=== PATIENT | male | born 1930 | race Caucasian/White ===

== ENCOUNTER → 2017-03-30 | Outpatient (REF) | payer MEDICARE ==
[2017-03-30 17:02] LABS: ALBUMIN 3.5 GM/DL (3.2-5.2); ALBUMIN/GLOBULIN RATIO 1.09 (1.00-1.93); BILIRUBIN,TOTAL 0.7 MG/DL (0.2-1.0); CALCIUM LEVEL 7.9 MG/DL (8.8-10.2); CREATININE FOR GFR 1.39 MG/DL (0.70-1.30); GLOMERULAR FILTRATION RATE 51.7 (>35); POTASSIUM SERUM 4.1 MEQ/L (3.5-5.1); TOTAL PROTEIN 6.7 GM/DL (6.4-8.2)
[2017-03-30 18:13] LABS: MEAN CORPUSCULAR HEMOGLOBIN 30.7 pg (27.0-33.0); MEAN CORPUSCULAR HGB CONC 33.3 g/dl (32.0-36.5); MEAN CORPUSCULAR VOLUME 92.1 fl (80.0-96.0); RED CELL DISTRIBUTION WIDTH 14.8 % (11.5-14.5)
== END ==
LOC: M SFHCCAPE 09:03
PROVIDERS: ATTEND Family Medicine
DX: N18.2 Chronic kidney disease, stage 2 (mild) (principal); E11.9 Type 2 diabetes mellitus without complications; E78.2 Mixed hyperlipidemia

== ENCOUNTER → 2018-01-04 | Outpatient (REF) | payer MEDICARE ==
[2018-01-04 18:59] LABS: APPEARANCE, URINE CLEAR (CLEAR); BACTERIA, URINE AUTO NEGATIVE (NEGATIVE); BILIRUBIN, URINE AUTO NEGATIVE (NEGATIVE); BLOOD, URINE BLOOD 1+ (NEGATIVE); COLOR, URINE YELLOW (YELLOW); GLUCOSE, URINE (UA) AUTO NEGATIVE (NEGATIVE); KETONE, URINE AUTO NEGATIVE (NEGATIVE); LEUKOCYTE ESTERASE, URINE AUTO NEGATIVE (NEGATIVE); NITRITE, URINE AUTO NEGATIVE (NEGATIVE); PROTEIN, URINE AUTO 1+ mg/dL (NEGATIVE); RBC, URINE AUTO 1 /HPF (0-3); SPECIFIC GRAVITY URINE AUTO 1.009 (1.002-1.035); SQUAMOUS EPITHELIAL CELL UR AU 0 /HPF (0-6); UROBILINOGEN, URINE AUTO 0.2 mg/dL (0.0-2.0); WBC, URINE AUTO 1 /HPF (0-3)
== END ==
LOC: M SMT 17:19
DX: R31.0 Gross hematuria (principal)
CPT/HCPCS: 81001

== ENCOUNTER → 2018-01-06 | Outpatient (CLI) | payer MEDICARE ==
[2018-01-06 17:22] LABS: ANION GAP 8 MEQ/L (8-16); BLOOD UREA NITROGEN 21 MG/DL (7-18); CALCIUM LEVEL 8.7 MG/DL (8.8-10.2); CARBON DIOXIDE LEVEL 29 MEQ/L (21-32); CHLORIDE LEVEL 103 MEQ/L (98-107); CREATININE FOR GFR 1.34 MG/DL (0.70-1.30); GLOMERULAR FILTRATION RATE 53.8 (>35); GLUCOSE, FASTING 99 MG/DL (70-100); POTASSIUM SERUM 4.4 MEQ/L (3.5-5.1); SODIUM LEVEL 140 MEQ/L (136-145)
== END ==
LOC: M SMT 14:27
DX: R31.0 Gross hematuria (principal)
CPT/HCPCS: 80048

== ENCOUNTER → 2018-01-11 | Outpatient (CLI) | payer MEDICARE ==
[~2018-01-11] MED LIST: ISOVUE-370 76% 100ML VIAL (Q9967) As Ordered
== END ==
LOC: M RAD 15:13
DX: R31.0 Gross hematuria (principal); K57.30 Diverticulosis of large intestine without perforation or abscess without bleeding; N40.0 Benign prostatic hyperplasia without lower urinary tract symptoms
CPT/HCPCS: Q9967

== ENCOUNTER → 2018-01-21 | Outpatient (REF) | payer MEDICARE ==
[2018-01-21 17:05] LABS: APPEARANCE, URINE CLEAR (CLEAR); BACTERIA, URINE AUTO NEGATIVE (NEGATIVE); BILIRUBIN, URINE AUTO NEGATIVE (NEGATIVE); BLOOD, URINE BLOOD NEGATIVE (NEGATIVE); COLOR, URINE YELLOW (YELLOW); GLUCOSE, URINE (UA) AUTO NEGATIVE (NEGATIVE); KETONE, URINE AUTO NEGATIVE (NEGATIVE); LEUKOCYTE ESTERASE, URINE AUTO NEGATIVE (NEGATIVE); MUCUS, URINE SMALL (NEGATIVE); NITRITE, URINE AUTO NEGATIVE (NEGATIVE); PROTEIN, URINE AUTO 1+ mg/dL (NEGATIVE); RBC, URINE AUTO 4 /HPF (0-3); SPECIFIC GRAVITY URINE AUTO 1.014 (1.002-1.035); SQUAMOUS EPITHELIAL CELL UR AU 0 /HPF (0-6); UROBILINOGEN, URINE AUTO 0.2 mg/dL (0.0-2.0); WBC, URINE AUTO 1 /HPF (0-3)
== END ==
LOC: M LABSMT 11:16
DX: N39.0 Urinary tract infection, site not specified (principal)
CPT/HCPCS: 81001

== ENCOUNTER → 2018-02-04 | Outpatient (CLI) | payer MEDICARE | LOC: M WUC 17:07 | DX: J06.9 Acute upper respiratory infection, unspecified (principal) | CPT/HCPCS: 71046; 87804 ==

== ENCOUNTER → 2018-03-29 | Outpatient (REF) | payer MEDICARE ==
[2018-03-29 17:49] LABS: HEMATOCRIT 40.8 % (42.0-52.0); HEMOGLOBIN 13.3 g/dl (13.5-17.5); MEAN CORPUSCULAR HEMOGLOBIN 29.7 pg (27.0-33.0); MEAN CORPUSCULAR HGB CONC 32.6 g/dl (32.0-36.5); MEAN CORPUSCULAR VOLUME 91.1 fl (80.0-96.0); PLATELET COUNT, AUTOMATED 153 10^3/uL (150-450); RED BLOOD COUNT 4.48 10^6/uL (4.30-6.10); RED CELL DISTRIBUTION WIDTH 14.5 % (11.5-14.5)
[2018-03-29 18:02] LABS: ALBUMIN 3.7 GM/DL (3.2-5.2); ALBUMIN/GLOBULIN RATIO 1.06 (1.00-1.93); ALKALINE PHOSPHATASE 139 U/L (45-117); ALT/SGPT 26 U/L (12-78); ANION GAP 6 MEQ/L (8-16); AST/SGOT 20 U/L (7-37); BILIRUBIN,TOTAL 0.5 MG/DL (0.2-1.0); BLOOD UREA NITROGEN 23 MG/DL (7-18); CALCIUM LEVEL 8.8 MG/DL (8.8-10.2); CARBON DIOXIDE LEVEL 29 MEQ/L (21-32); CHLORIDE LEVEL 107 MEQ/L (98-107); CHOLESTEROL LEVEL 186 MG/DL (<200); CHOLESTEROL RISK RATIO 5.314 (<5); CREATININE FOR GFR 1.41 MG/DL (0.70-1.30); GLOMERULAR FILTRATION RATE 50.7 (>35); GLUCOSE, FASTING 131 MG/DL (70-100); HDL CHOLESTEROL 35 MG/DL (>40); NON-HDL-C 151 MG/DL; POTASSIUM SERUM 4.3 MEQ/L (3.5-5.1); SODIUM LEVEL 142 MEQ/L (136-145); TOTAL PROTEIN 7.2 GM/DL (6.4-8.2); TRIGLYCERIDES LEVEL 220 MG/DL (<150)
[2018-03-29 18:04] LABS: ESTIMATED AVERAGE GLUCOSE 128 MG/DL (60-110); HEMOGLOBIN A1c 6.1 %
[2018-03-29 18:56] LABS: CREATININE, URINE 93.4 MG/DL; MAU/CREAT RATIO 266.5 MCG/MG (0.0-30.0)
[2018-03-30 10:23] LABS: TOTAL 25(OH) VITAMIN D 35.4 NG/ML (30.0-100.0)
== END ==
LOC: M SFHCCAPE 08:02
DX: N18.2 Chronic kidney disease, stage 2 (mild) (principal); E11.29 Type 2 diabetes mellitus with other diabetic kidney complication; E78.2 Mixed hyperlipidemia; R80.9 Proteinuria, unspecified; I11.9 Hypertensive heart disease without heart failure
CPT/HCPCS: 80053

== ENCOUNTER → 2019-01-18 | Outpatient (CLI) | payer MEDICARE ==
--- NOTE | 2019-01-18 15:17 | REP ---
Chest x-ray: Two views. History: Acute respiratory infection. Comparison chest x-ray: February 04, 2018. Findings: Right hemidiaphragm is somewhat elevated and scalloped unchanged. There is linear fibrosis in the left base also unchanged. The heart is not enlarged. No infiltrate is seen. Pleural angles are sharp. Pulmonary vasculature is not increased. No significant bony abnormality is seen. Impression: Elevated somewhat scalloped right hemidiaphragm unchanged. Linear fibrosis left base. Otherwise no acute disease. Electronically Signed by Rene Jackson MD 01/18/2019 03:08 P
== END ==
LOC: M CLY 13:36
PROVIDERS: ATTEND Physician Assistant
DX: J22 Unspecified acute lower respiratory infection (principal)
CPT/HCPCS: 71046; 87804; G0463

== ENCOUNTER → 2019-04-12 | Outpatient (REF) | payer MEDICARE ==
[2019-04-12 18:04] LABS: ALBUMIN 3.8 GM/DL (3.2-5.2); BILIRUBIN,TOTAL 0.5 MG/DL (0.2-1.0); CALCIUM LEVEL 9.3 MG/DL (8.8-10.2); CHOLESTEROL RISK RATIO 5.789 (<5); CREATININE FOR GFR 1.36 MG/DL (0.70-1.30); GLOMERULAR FILTRATION RATE 52.8 (>35); POTASSIUM SERUM 4.1 MEQ/L (3.5-5.1)
[2019-04-12 18:11] LABS: TOTAL 25(OH) VITAMIN D 33.9 NG/ML (30.0-100.0)
[2019-04-12 18:23] LABS: HEMATOCRIT 42.7 % (42.0-52.0); MEAN CORPUSCULAR HEMOGLOBIN 30.2 pg (27.0-33.0); MEAN CORPUSCULAR HGB CONC 32.8 g/dl (32.0-36.5); MEAN CORPUSCULAR VOLUME 92.2 fl (80.0-96.0); PLATELET COUNT, AUTOMATED 154 10^3/uL (150-450); RED BLOOD COUNT 4.63 10^6/uL (4.30-6.10)
[2019-04-12 18:32] LABS: MAU/CREAT RATIO 87.9 MCG/MG (0.0-30.0)
[2019-04-12 19:10] LABS: HEMOGLOBIN A1c 6.3 %
== END ==
LOC: M SFHCCAPE 09:45
PROVIDERS: ATTEND Family Medicine
DX: N18.2 Chronic kidney disease, stage 2 (mild) (principal); E11.9 Type 2 diabetes mellitus without complications; E78.2 Mixed hyperlipidemia

== ENCOUNTER → 2020-03-27 | Outpatient (REF) | payer MEDICARE ==
[~2020-03-27] MED LIST changes: +CETI-24 PO; +COMMENTS; +ELIQ2.5T PO; +FLOM0.4C39 PO; +GABA-282 PO; +IPRA3SP NARES; -ISOVUE-370 76% 100ML VIAL (Q9967) As Ordered; +LISI20TA33 PO; +METF-838 PO; +MONT10TA10 PO; +OMEP1CAP73 PO; +PEG1POW PO; +POTA10TA17 PO; +PRES10CA2 PO; +ROSU40TA4 PO; +TRIA37.5 PO; +VITA500C24 PO
[2020-03-27 12:40] LABS: HEMATOCRIT 38.5 % (42.0-52.0); HEMOGLOBIN 12.4 g/dl (13.5-17.5); MEAN CORPUSCULAR HEMOGLOBIN 30.1 pg (27.0-33.0); MEAN CORPUSCULAR HGB CONC 32.2 g/dl (32.0-36.5); MEAN CORPUSCULAR VOLUME 93.4 fl (80.0-96.0); PLATELET COUNT, AUTOMATED 113 10^3/uL (150-450); RED BLOOD COUNT 4.12 10^6/uL (4.30-6.10); WHITE BLOOD COUNT 6.1 10^3/uL (4.0-10.0)
[2020-03-27 12:49] LABS: ALBUMIN 3.8 GM/DL (3.2-5.2); BILIRUBIN,TOTAL 0.4 MG/DL (0.2-1.0); CALCIUM LEVEL 9.3 MG/DL (8.8-10.2); CHOLESTEROL RISK RATIO 2.297 (<5); CREATININE FOR GFR 1.46 MG/DL (0.70-1.30); GLOMERULAR FILTRATION RATE 48.5 (>35); POTASSIUM SERUM 4.5 MEQ/L (3.5-5.1); TOTAL PROTEIN 7.3 GM/DL (6.4-8.2)
[2020-03-27 13:24] LABS: CREATININE, URINE 81.5 MG/DL; MALB URINE SIEMENS 72.5 MG/L; MAU/CREAT RATIO 88.9 MCG/MG (0.0-30.0)
[2020-03-27 14:10] LABS: HEMOGLOBIN A1c 6.3 %
== END ==
LOC: M PLALAB 10:16
PROVIDERS: ATTEND Family Medicine
DX: R06.09 Other forms of dyspnea (principal); N18.2 Chronic kidney disease, stage 2 (mild); I11.9 Hypertensive heart disease without heart failure; E11.29 Type 2 diabetes mellitus with other diabetic kidney complication; E78.2 Mixed hyperlipidemia

== ENCOUNTER 2020-05-22 16:38 | Inpatient (IN) | payer BC, MEDICARE ==
[~2020-05-22] VITALS: Ht 182.9 cm; Wt 94.6 kg
[2020-05-22] MEDS ORDERED: NS 2,880 ML in IV 1 EA IV ONE (17:15)
[2020-05-22 17:33] LABS: BASO % 0.4 % (0.0-1.0); EOS # 0.1 10^3/uL (0.0-0.5); EOS % 1.6 % (0.0-3.0); HEMOGLOBIN 10.5 g/dl (13.5-17.5); LYMPH # 0.8 10^3/uL (1.5-5.0); LYMPH % 16.4 % (24.0-44.0); MEAN CORPUSCULAR HEMOGLOBIN 30.7 pg (27.0-33.0); MEAN CORPUSCULAR HGB CONC 32.8 g/dl (32.0-36.5); MEAN CORPUSCULAR VOLUME 93.6 fl (80.0-96.0); MONO # 0.5 10^3/uL (0.0-0.8); MONO % 9.6 % (0.0-5.0); NEUTROPHILS # 3.5 10^3/uL (1.5-8.5); NEUTROPHILS % 71.8 % (36.0-66.0); PLATELET COUNT, AUTOMATED 100 10^3/uL (150-450); RED BLOOD COUNT 3.42 10^6/uL (4.30-6.10); WHITE BLOOD COUNT 4.9 10^3/uL (4.0-10.0)
[2020-05-22 17:37] LABS: INR 1.19; PROTHROMBIN TIME 14.8 SECONDS (11.8-14.0)
[2020-05-22 17:38] LABS: PARTIAL THROMBOPLASTIN TIME 28.4 SECONDS (25.0-38.4)
[2020-05-22 17:46] LABS: ALBUMIN 3.1 GM/DL (3.2-5.2); ALT/SGPT 23 U/L (12-78); AMYLASE 35 U/L (25-115); BILIRUBIN,DIRECT 0.2 MG/DL (0.0-0.2); BILIRUBIN,TOTAL 0.5 MG/DL (0.2-1.0); C REACTIVE PROTEIN QUANTITATIV < 0.30 MG/DL (0.00-0.30)
--- NOTE | 2020-05-22 18:43 | REPVR ---
PROCEDURE INFORMATION: Exam: CT Head Without Contrast Exam date and time: 05/22/2020 6:16 PM Age: 89 years old Clinical indication: Pain; Headache; Additional info: Altered mental status TECHNIQUE: Imaging protocol: Computed tomography of the head without contrast. Radiation optimization: All CT scans at this facility use at least one of these dose optimization techniques: automated exposure control; mA and/or kV adjustment per patient size (includes targeted exams where dose is matched to clinical indication); or iterative reconstruction. COMPARISON: No relevant prior studies available. FINDINGS: Brain: Global cerebral atrophy is consistent with patient's age. Decreased attenuation within the white matter tracts of both cerebral hemispheres is nonspecific but typically seen with small vessel disease/chronic white matter ischemic changes of aging. Encephalomalacia within the anterior left frontal lobe consistent with old infarct. Asymmetric calcifications within the basal ganglia, likely senescent. A calcified lesion within the right basal ganglia cannot be completely excluded, although no mass effect is appreciated. No acute stroke. No intracranial hemorrhage. No mass effect. Ventricles: Mild ventriculomegaly consistent with global cerebral atrophy. Bones/joints: Degenerative arthrosis of the right temporomandibular joint. No fracture. Sinuses: Complete opacification of the left frontal sinus containing moderately increased attenuation material, likely secondary to chronic sinus disease. Fungal sinus disease is not excluded. Mastoid air cells: Visualized mastoid air cells are well aerated. Nasal cavity: Micro lobulation of the nasal turbinates consistent with nasal polyposis. Soft tissues: Unremarkable. IMPRESSION: 1. No acute intracranial abnormality. 2. 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 3. Asymmetrical calcifications within the basal ganglia, likely physiologic. A right basal ganglia calcified lesion cannot be completely excluded. 4. Left frontal sinus opacification with moderately increased attenuation material, likely secondary to chronic sinus disease. Fungal sinus disease is not excluded. Electronically signed by: Celestino Juan On 05/22/2020 18:43:22 PM
[2020-05-22] MEDS ORDERED: cefTRIAXone SOD 2 GM in D5W MINI-BAG PLUS 50 ML IV ONE (19:00)
[2020-05-22 19:03] LABS: APPEARANCE, URINE CLEAR (CLEAR); BACTERIA, URINE AUTO NEGATIVE (NEGATIVE); BILIRUBIN, URINE AUTO NEGATIVE (NEGATIVE); BLOOD, URINE BLOOD NEGATIVE (NEGATIVE); COLOR, URINE YELLOW (YELLOW); GLUCOSE, URINE (UA) AUTO NEGATIVE (NEGATIVE); KETONE, URINE AUTO NEGATIVE (NEGATIVE); LEUKOCYTE ESTERASE, URINE AUTO NEGATIVE (NEGATIVE); MUCUS, URINE SMALL (NEGATIVE); NITRITE, URINE AUTO NEGATIVE (NEGATIVE); PROTEIN, URINE AUTO 1+ mg/dL (NEGATIVE); RBC, URINE AUTO 5 /HPF (0-3); SPECIFIC GRAVITY URINE AUTO 1.012 (1.002-1.035); SQUAMOUS EPITHELIAL CELL UR AU 1 /HPF (0-6); WBC, URINE AUTO 1 /HPF (0-3)
[2020-05-22] MEDS ORDERED: NS 1,000 ML IV ONE (19:15)
[2020-05-22] MEDS ORDERED: LISI-538 PO (20:05)
[2020-05-22] MEDS ORDERED: ALL10TAB29 PO (20:05)
[2020-05-22] MEDS ORDERED: TRIA37.5 PO (20:05)
[2020-05-22] MEDS ORDERED: METF-838 PO (20:05)
[2020-05-22] MEDS ORDERED: GABA-843 PO (20:05)
[2020-05-22] MEDS ORDERED: IPRA3SP NARES (20:05)
[2020-05-22] MEDS ORDERED: VITA500C24 PO (20:05)
[2020-05-22] MEDS ORDERED: OMEP1CAP73 PO (20:11)
[2020-05-22] MEDS ORDERED: FLOM0.4C39 PO (20:11)
[2020-05-22] MEDS ORDERED: POTA10TA17 PO (20:11)
[2020-05-22] MEDS ORDERED: PRES10CA2 PO (20:11)
[2020-05-22] MEDS ORDERED: MONT10TA4 PO (20:11)
[2020-05-22] MEDS ORDERED: PEG1POW PO (20:11)
[2020-05-22] MEDS ORDERED: ROSU40TA4 PO (20:11)
[2020-05-22] MEDS ORDERED: COMMENTS (20:12)
[2020-05-22 21:16] VITALS: BP 140/66
--- NOTE | 2020-05-22 21:37 | ECGEPIP ---
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
[2020-05-22] MEDS ORDERED: MIRALAX *UNIT DOSE* 17GM PACKET PO PRN (22:00)
[2020-05-22] MEDS ORDERED: NS 1,000 ML IV SCH (22:30)
[2020-05-22] MEDS: POTASSIUM CHLORIDE 10 MEQ SR TABLET PO SCH (22:32)
[2020-05-22] MEDS: APIXABAN 2.5 MG TAB (ELIQUIS) PO SCH (22:32)
[2020-05-22] MEDS: GABAPENTIN 300 MG CAP PO SCH (22:33)
[2020-05-22] MEDS ORDERED: D5W/0.45% SODIUM CHLORIDE 1,000 ML IV SCH (23:30)
[2020-05-22] MEDS ORDERED: D5W/0.9% SODIUM CHLORIDE 1,000 ML IV ONE (23:30)
[2020-05-23] VITALS: BP 97/62
[2020-05-23 00:54] LABS: CK-MB VALUE MASS 2.8 NG/ML (<3.6); MB/CK RELATIVE INDEX 3.84 (< OR =4); TROPONIN I 0.12 NG/ML (< 0.10)
[2020-05-23 04:00] VITALS: BP 120/68
[2020-05-23 05:42] LABS: BASO % 0.4 % (0.0-1.0); EOS # 0.2 10^3/uL (0.0-0.5); EOS % 2.9 % (0.0-3.0); HEMOGLOBIN 10.5 g/dl (13.5-17.5); LYMPH # 1.5 10^3/uL (1.5-5.0); MEAN CORPUSCULAR HEMOGLOBIN 30.3 pg (27.0-33.0); MEAN CORPUSCULAR HGB CONC 31.8 g/dl (32.0-36.5); MEAN CORPUSCULAR VOLUME 95.1 fl (80.0-96.0); MONO # 0.6 10^3/uL (0.0-0.8); MONO % 9.8 % (0.0-5.0); NEUTROPHILS # 3.4 10^3/uL (1.5-8.5); NEUTROPHILS % 59.7 % (36.0-66.0); RED BLOOD COUNT 3.47 10^6/uL (4.30-6.10); WHITE BLOOD COUNT 5.6 10^3/uL (4.0-10.0)
[2020-05-23 05:59] LABS: CALCIUM LEVEL 7.8 MG/DL (8.8-10.2); CREATININE FOR GFR 1.4 MG/DL (0.70-1.30); GLOMERULAR FILTRATION RATE 50.9 (>35); MAGNESIUM LEVEL 1.6 MG/DL (1.8-2.4); POTASSIUM SERUM 4.1 MEQ/L (3.5-5.1)
[2020-05-23 06:29] LABS: PLATELET COUNT, AUTOMATED 93 10^3/uL (150-450)
[2020-05-23] MEDS ORDERED: MAG SULF 1GM/100ML (MAG RUN) 1 GM in IV 1 EA IV ONE (06:45)
--- NOTE | 2020-05-23 07:28 | REP ---
CHEST, SINGLE VIEW: Single view of the chest is performed. COMPARISON: 01/18/2019 There is mild linear fibroatelectatic change in each lung base, stable. No new infiltrate is seen. There is mild left ventricular prominence. There is mild calcification and tortuosity of the thoracic aorta. The mediastinal silhouette is unchanged. IMPRESSION: Mild cardiomegaly and stable chronic findings with no acute infiltrate. Electronically Signed by Rivera Hardin MD 05/24/2020 09:16 A
[2020-05-23 08:00] VITALS: BP 105/74
[2020-05-23] MEDS: ASCORBIC ACID 500 MG TAB PO SCH (08:32)
[2020-05-23] MEDS: POTASSIUM CHLORIDE 10 MEQ SR TABLET PO SCH ×2 (08:32→21:12)
[2020-05-23] MEDS: MONTELUKAST 10 MG TAB PO SCH (08:32)
[2020-05-23] MEDS: TAMSULOSIN 0.4 MG CAP PO SCH (08:32)
[2020-05-23] MEDS: APIXABAN 2.5 MG TAB (ELIQUIS) PO SCH ×2 (08:32→21:12)
[2020-05-23] MEDS: OMEPRAZOLE 20 MG CAP PO SCH (08:32)
[2020-05-23] MEDS: CETIRIZINE (ZyrTEC) 10 MG TAB PO SCH (08:32)
[2020-05-23] MEDS: ROSUVASTATIN 10 MG TAB (CRESTOR) PO SCH (08:33)
[2020-05-23] MEDS ORDERED: cefTRIAXone SOD 2 GM in D5W MINI-BAG PLUS 50 ML IV SCH (09:00)
[2020-05-23 09:14] LABS: CK-MB VALUE MASS 3.2 NG/ML (<3.6); MB/CK RELATIVE INDEX 4.71 (< OR =4); TROPONIN I 0.07 NG/ML (< 0.10)
--- NOTE | 2020-05-23 09:45 | HPE ---
DATE OF ADMISSION: 05/22/2020 CHIEF COMPLAINT: Altered mental status. HISTORY OF PRESENT ILLNESS: This is an 89-year-old FULL CODE, who lives at home with is . Health care proxy is Emily, their daughter. He was in his usual state of health until later today when he was noted to be disoriented and was not alert. He was very active this morning and is supposed to use oxygen at all times. However, he does not have oxygen with portability and was running some errands. When they returned home, patient was asleep in the car and was not speaking, would not respond so the family became concerned and call 911. He was found to be hypotensive with systolic pressure of 84 mmHg. He does take lisinopril 20 mg nightly, triamterine hydrochlorothiazide 37.5/25 mg half a tablet daily. Patient is a diabetic but glucose was 130 on arrival. Patient was initially given IV ceftriaxone for presumed urinary tract infection (UTI) but urinalysis was unremarkable. After two liters of IV fluids, patient's repeat blood pressure was 133/70. Patient was back to his baseline mentation and was providing some history. Patient denies any bright red blood per rectum, melena, black tarry stools. Denies vomiting, nausea, dysuria, urgency, frequency, fever, chills, shortness of breath, chest pain, pressure or tightness. Patient also denied any chronic sinus tenderness, palpitations, lightheadedness prior to be very sleepy and lethargic. CT of the head was negative for acute cerebrovascular accident (CVA). There is no acute intracranial abnormality. 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 Patient has left frontal sinus opacification likely chronic sinus disease. Right basal ganglia calcified lesion cannot be excluded. Asymmetric calcifications within the basal ganglia likely physiologic. Hospitalist was called to admit for hypotension, rule out infection but most likely medication induced. Patient says that he has been taking his medication and tries to drink a jug of liquids a day at home. PAST MEDICAL HISTORY: Obstructive lung disease on pulmonary function test (PFT) February 2004 on supplemental oxygen nightly. 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 Type 2 diabetes. Hypertension. Obstructive sleep apnea compliant with CPAP. Benign prostatic hypertrophy (BPH). Hyperlipidemia. Vitamin D deficiency. Colonic adenomatous polyps. Normal stress test with ejection fraction (EF) of 55%, 2004. In 2012, it was 55% unchanged. Holter monitor 2013 was normal. ALLERGIES: Mold - causing nausea and vomiting, SULFA and ASPIRIN. PAST SURGICAL HISTORY: Transurethral resection of prostate by Dr. Mistry. Colonoscopies for tubular adenomas. Hyperplastic polyps. Cystoscopy 2018. HOME MEDICATIONS: - FloMag 0.4 daily - ipratropium 2 sprays as needed - lisinopril 20 nightly - metformin 500 twice a day - triamterine hydrochlorothiazide 37.5/25 mg half a tablet daily - PreserVision one tablet twice a day - ascorbic acid 500 daily - cetirizine 10 daily - gabapentin 900 nightly - montelukast 10 daily - omeprazole 20 every morning - polyethylene glycol 17 grams daily as needed - potassium 20 mEq twice a day - rosuvastatin 40 mg daily - tamsulosin 0.4 mg daily SOCIAL HISTORY: Patent lives with at home with his . Health care proxy is his daughter. Patient says that he does not want to be intubated, does not want any cardiopulmonary resuscitation (CPR) but medical orders for life-sustaining treatment (MOLST) form has not been signed. Healthcare proxy daughter will be dropping in tomorrow and will discuss these matters with the father and do a MOLST form. Retired. Denies any alcohol abuse or recreational drug use. Health care proxy is the daughter Emily phone number [phone]. FAMILY HISTORY: Noncontributory due to advanced age. PHYSICAL EXAMINATION: Blood pressure 84/54, 84/49. Temperature 96.2, respiratory rate 16. Pulse irregularly irregular, pulse of 81. Repeat blood pressure after 2 liters IV fluid is 133/70, 99% on room air. Generally, patient's face is asymmetric, tongue is midline. Speaks in full sentences. No conversational dyspnea. No cyanosis. No icterus or jaundice. Lungs are clear to auscultation. No wheezing, rales or rhonchi. Heart: S1, S2. Irregularly irregular. Abdomen is soft, nontender, nondistended. Positive bowel sounds in four quadrants. Obese abdomen. Extremities: No cyanosis or clubbing. Skin: Warm, dry, well perfused. [place] in color. EK05/22/2020, atrial fibrillation, ventricular rate of 86, inferior myocardial infarction (AL) probably old. CT of the head: No acute intracranial abnormality. Global cerebral atrophy. 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 Right basal ganglia calcified lesion cannot be excluded. Left frontal sinus opacification likely secondary to chronic sinus disease. Fungal sinus disease is not excluded. 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 Asymmetrical calcifications in the basal ganglia, bilateral cataracts, colonic polyps, TURP, hyperlipidemia, restrictive lung disease on home oxygen, ALISA compliant with CPAP. BPH, diabetes. Presents to the emergency room after being found unresponsive and sleepy in the car while running errands. On returning home, patient was found to be hypotensive. CT of the head was negative for acute intracranial pathology, was found to be in new onset atrial fibrillation. IMPRESSION: Acute encephalopathy most likely due to orthostasis which was induced by medications. Therefore, his blood pressure medications have been held. He has been given 2 liters of intravenous fluids with resultant improvement in mentation back to baseline and systolic pressure 121-133 at the bedside. Patient is perfusing well and is appropriate. His acute kidney injury is most likely due to persistent use of diuretics in light of decrease in oral fluid intake. Acute kidney injury on chronic kidney disease (CKD) III. Patient's creatinine is elevated. His diuretics have been held along with angiotensin converting enzyme inhibitors (AUGUSTINA) inhibitor. He has been given IV fluids. Strict input and output, daily weights. Check for postvoid residual. Continue on Flomax and may resume low dose angiotensin converting enzyme inhibitors (UAGUSTINA) in the morning once the creatinine is back to baseline. Hypotension most likely due to decreased oral intake and continued use of AUGUSTINA inh and diuretics. r/o infectious etiology. improved with ivfluids back to baseline sbp, and mentation. Type 2 diabetes: Currently controlled. Glucose is 130 despite altered mental status, not a likely cause of his acute encephalopathy. Atrial fibrillation: New onset. After speaking with the patient and the patient's daughter, patient has been started on a low dose renally dosed Eliquis 2.5 twice a day to start this evening. Will obtain an echocardiogram. If patient has contraindication to anticoagulation, he may be referred by Dr. Wetterhahn to recreational therapy aide for a regimen. Allergic rhinitis: Continue on Zyrtec. Benign prostatic hypertrophy (BPH): Continue on Flomax which could cause orthostasis. Therefore, will monitor on this. Chronic diabetic neuropathy: On Neurontin. Restrictive lung disease: Continue on home oxygen at night. Obstructive sleep apnea: Continue on CPAP. CODE STATUS: Full code. Daughter will be coming in tomorrow to discuss code status with her father. He tells me that he does not want to be intubated and does not want CPR, should he naturally. This will be deferred to the physician in the morning. SUE
[2020-05-23 12:00] VITALS: BP 100/63
[2020-05-23 16:00] VITALS: BP 98/56
[2020-05-23] MEDS: NS 1,000 ML IV SCH (16:15)
--- NOTE | 2020-05-23 16:24 | IPNPDOC ---
Text Note Date of Service The patient was seen on 05/23/20. NOTE Subjective: Patient is an 81-year-old male with a PMHx of Obstructive lung disease, Nocturnal hypoxia, L sided Pepper's Palsy, HTN, DM2, DLP, Vitamin D defi ciency, who presented to the hospital with disorientation. Blood glucose levels were normal. Patient was found to be hypotensive on arrival, but improved with IV fluid hydration. . He was started on ceftriaxone for suspected UTI. Patient was admitted to the Hospitalist service for further evaluation and treatment of his hypotension. Patient was seen and examined at the bedside. . Currently, he denies any nausea, vomiting, abdominal pain, obstipation, diarrhea, or urinary discomfort. Patient denies any facial pain or runny nose. Objective: Vitals (See below) General: Lying in bed, appears comfortable, awake / alert HEENT: NC, AT CVS: +S1S2 Lungs: Fair air entry b/l, no appreciable wheezing, rhonchi or rales Abdomen: Soft, ND, NT Extremities: No evidence of edema, - Calf tenderness Assessment and plan: s/p Acute metabolic encephalopathy - possibly 2/2 low blood pressure - Patient appears to be oriented to person, place and time - No focal neurologic deficits - Will start PT s/p Hypotension - possibly 2/2 medications and dehydration, less likely 2/2 infection - Patient has a normal blood pressure at this time - No leukocytosis - Lactic acid has normalized - Will check AM cortisol - UA inconsistent with infection; Urine culture / Blood cultures pending - Will continue to hold BP medications - c/w IV fluid hydration - Was started on Ceftriaxone on admission (Day #2) New onset atrial fibrillation - ECHO pending / Will check thyroid function testing - Currently is rate controlled without medications - c/w Eliquis Elevate Cr on CKD3 - likely 2/2 pre-renal etiology - Cr on admission of 1.9 - Baseline Cr of 1.2-1.4 - Will still continue with IV fluids for additional 24 hours Hypomagnesemia - Will supplement Allergic rhinitis - c/w Cetirizine BPH - c/w Tamsulosin; will continue to monitor orthostatic BP while continuing this medications DM2 with Neuropathy - c/w ISS and Gabapentin Restrictive lung disease - no evidence of exacerbation - CXR 05/22: Mild cardiomegaly and stable chronic findings with no acute infiltrate. - c/w inhaled therapy as ordered ALISA on CPAP - allow home CPAP use GERD - c/w Omeprazole DVT prophylaxis - c/w full anticoagulation with Eliquis VS,Fishbone, I+O VS, Fishbone, I+O Laboratory Tests 05/22/20 17:01 05/23/20 05:01 Vital Signs Date Time Temp Pulse Resp B/P (MAP) Pulse Ox O2 Delivery O2 Flow Rate FiO2 05/23/20 12:00 98.0 90 20 100/63 (75) 96 Nasal Cannula 2.0 I&O- Last 24 Hours up to 6 AM 05/23/20 06:00 Intake Total 3230 ml Output Total 350 ml Balance 2880 ml IDA PACKER MD May 23, 2020 16:24
[2020-05-23 17:59] LABS: MB/CK RELATIVE INDEX 3.85 (< OR =4); TROPONIN I 0.04 NG/ML (< 0.10)
[2020-05-23 20:00] VITALS: BP 142/82
[2020-05-23 20:30] LABS: FREE T4 0.98 NG/DL (0.76-1.46); THYROID STIMULATING HORMONE 1.65 uIU/ML (0.358-3.740)
[2020-05-23] MEDS: GABAPENTIN 300 MG CAP PO SCH (21:12)
[2020-05-23 22:11] LABS: TOTAL T3 72.1 NG/DL (60.0-181.0)
[2020-05-24] VITALS (8 sets, daily range): BP systolic 105–148; BP diastolic 63–98
[2020-05-24] MEDS: NS 1,000 ML IV SCH (05:33)
[2020-05-24 05:53] LABS: BASO % 0.6 % (0.0-1.0); EOS # 0.2 10^3/uL (0.0-0.5); EOS % 2.8 % (0.0-3.0); HEMATOCRIT 27.8 % (42.0-52.0); HEMOGLOBIN 9.1 g/dl (13.5-17.5); LYMPH # 1.3 10^3/uL (1.5-5.0); LYMPH % 24.1 % (24.0-44.0); MEAN CORPUSCULAR HEMOGLOBIN 31.2 pg (27.0-33.0); MEAN CORPUSCULAR HGB CONC 32.7 g/dl (32.0-36.5); MEAN CORPUSCULAR VOLUME 95.2 fl (80.0-96.0); MONO # 0.5 10^3/uL (0.0-0.8); MONO % 8.5 % (0.0-5.0); NEUTROPHILS # 3.4 10^3/uL (1.5-8.5); RED BLOOD COUNT 2.92 10^6/uL (4.30-6.10); WHITE BLOOD COUNT 5.3 10^3/uL (4.0-10.0)
[2020-05-24 06:04] LABS: PLATELET COUNT, AUTOMATED 80 10^3/uL (150-450)
[2020-05-24 06:13] LABS: BLOOD UREA NITROGEN 20 MG/DL (7-18); CALCIUM LEVEL 6.3 MG/DL (8.8-10.2); CARBON DIOXIDE LEVEL 19 MEQ/L (21-32); CHLORIDE LEVEL 120 MEQ/L (98-107); CREATININE FOR GFR 1.08 MG/DL (0.70-1.30); GLOMERULAR FILTRATION RATE > 60.0 (>35); GLUCOSE, FASTING 82 MG/DL (70-100); MAGNESIUM LEVEL 1.4 MG/DL (1.8-2.4); POTASSIUM SERUM 3.5 MEQ/L (3.5-5.1); SODIUM LEVEL 148 MEQ/L (136-145)
[2020-05-24] MEDS: CETIRIZINE (ZyrTEC) 10 MG TAB PO SCH (08:15)
[2020-05-24] MEDS: MAG SULF 1GM/100ML (MAG RUN) 1 GM in IV 1 EA IV SCH ×3 (08:15→10:58)
[2020-05-24] MEDS: MONTELUKAST 10 MG TAB PO SCH (08:15)
[2020-05-24] MEDS: OMEPRAZOLE 20 MG CAP PO SCH (08:15)
[2020-05-24] MEDS: POTASSIUM CHLORIDE 10 MEQ SR TABLET PO SCH ×2 (08:16→21:37)
[2020-05-24] MEDS: ASCORBIC ACID 500 MG TAB PO SCH (08:16)
[2020-05-24] MEDS: TAMSULOSIN 0.4 MG CAP PO SCH (08:16)
[2020-05-24] MEDS: APIXABAN 2.5 MG TAB (ELIQUIS) PO SCH ×2 (08:16→21:37)
[2020-05-24] MEDS: ROSUVASTATIN 10 MG TAB (CRESTOR) PO SCH (08:16)
--- NOTE | 2020-05-24 10:32 | IPNPDOC ---
Text Note Date of Service The patient was seen on 05/24/20. NOTE Subjective: Patient is an 81-year-old male with a PMHx of Obstructive lung disease, Nocturnal hypoxia, L sided Pepper's Palsy, HTN, DM2, DLP, Vitamin D defi ciency, who presented to the hospital with disorientation. Blood glucose levels were normal. Patient was found to be hypotensive on arrival, but improved with IV fluid hydration. . He was started on ceftriaxone for suspected UTI. Patient was admitted to the Hospitalist service for further evaluation and treatment of his hypotension. Patient was seen and examined at the bedside. Patient appears to be more awake and alert this morning. Denies chest pain, shortness of breath or palpitations. Has not expense any nausea, vomiting, abdominal pain or diarrhea. Patient was eating breakfast this morning upon evaluation. Objective: Vitals (See below) General: Lying in bed, appears to be comfortable, is awake, alert and oriented 3 HEENT: NC, AT CVS: +S1S2 Lungs: Air entry is fair bilaterally without evidence of rhonchi, crackles or wheezing Abdomen: Abdomen is soft, without any distention or tenderness Extremities: Lower extremity is free of any pitting edema, - Calf tenderness Assessment and plan: s/p Acute metabolic encephalopathy - possibly 2/2 low blood pressure - Patient appears to be oriented to person, place and time - No focal neurologic deficits - c/w PT - awaiting clearance; anticipate DC home tomorrow s/p Hypotension - possibly 2/2 medications and dehydration, less likely 2/2 infection - Patient has a normal blood pressure at this time - No leukocytosis - Lactic acid has normalized - Cortisol level noted to be within normal range this morning; will check cosyntropin stimulation test - UA inconsistent with infection - Urine culture 05/22: Staph Warneri <30,000 colonies - Blood cultures 05/22: negative at 24 hours - Hold BP medications - Will check cosyntropin stimulation test tomorrow AM - if negative will have DC home tomorrow - Will DC IV fluid hydration and Ceftriaxone New onset atrial fibrillation - ECHO pending / Will check thyroid function testing - Currently is rate controlled without medications - c/w Eliquis Elevate Cr on CKD3 - likely 2/2 pre-renal etiology - Cr on admission of 1.9 - Baseline Cr of 1.2-1.4 - Cr is within baseline level currently Hypomagnesemia - Will again provide supplementation Allergic rhinitis - c/w Cetirizine BPH - c/w Tamsulosin; will continue to monitor orthostatic BP while continuing this medications DM2 with Neuropathy - c/w ISS and Gabapentin Restrictive lung disease - no evidence of exacerbation - CXR 05/22: Mild cardiomegaly and stable chronic findings with no acute infiltrate. - c/w inhaled therapy as ordered ALISA on CPAP - allow home CPAP use GERD - c/w Omeprazole DVT prophylaxis - c/w full anticoagulation with Eliquis VS,Fishbone, I+O VS, Fishbone, I+O Laboratory Tests 05/24/20 05:14 Vital Signs Date Time Temp Pulse Resp B/P (MAP) Pulse Ox O2 Delivery O2 Flow Rate FiO2 05/24/20 08:00 2.0 05/24/20 06:54 97.5 75 18 116/74 (88) 96 Nasal Cannula I&O- Last 24 Hours up to 6 AM 05/24/20 06:00 Intake Total 1780 ml Output Total 1100 ml Balance 680 ml IDA PACKER MD May 24, 2020 10:32
--- NOTE | 2020-05-24 12:00 | REP ---
CHEST, SINGLE VIEW: Single view of the chest performed and compared to a prior study of 05/22/2020. There is linear discoid atelectasis in each lung base. I cannot exclude early infiltrate in the left base. Lung apices are obscured by patient's chin. The heart and mediastinum are unchanged. Electronically Signed by Rivera Hardni MD 05/27/2020 10:17 P
[2020-05-24] MEDS: GABAPENTIN 300 MG CAP PO SCH (21:37)
[2020-05-25 06:00] VITALS: BP 132/85
[2020-05-25] MEDS ORDERED: COSYNTROPIN 0.25 MG/ML VIAL (J0834 PER 0.25MG) IV ONE (06:00)
[2020-05-25 06:28] LABS: BASO % 0.7 % (0.0-1.0); EOS # 0.2 10^3/uL (0.0-0.5); EOS % 3.4 % (0.0-3.0); HEMATOCRIT 34.2 % (42.0-52.0); LYMPH # 1.2 10^3/uL (1.5-5.0); LYMPH % 21.5 % (24.0-44.0); MEAN CORPUSCULAR HEMOGLOBIN 30.4 pg (27.0-33.0); MEAN CORPUSCULAR HGB CONC 32.7 g/dl (32.0-36.5); MEAN CORPUSCULAR VOLUME 92.9 fl (80.0-96.0); MONO # 0.5 10^3/uL (0.0-0.8); MONO % 9.4 % (0.0-5.0); NEUTROPHILS # 3.7 10^3/uL (1.5-8.5); NEUTROPHILS % 64.8 % (36.0-66.0); PLATELET COUNT, AUTOMATED 104 10^3/uL (150-450); RED BLOOD COUNT 3.68 10^6/uL (4.30-6.10); WHITE BLOOD COUNT 5.6 10^3/uL (4.0-10.0)
[2020-05-25 06:33] LABS: HEMOGLOBIN 11.2 g/dl (13.5-17.5)
[2020-05-25 06:51] LABS: CALCIUM LEVEL 8.3 MG/DL (8.8-10.2); CREATININE FOR GFR 1.22 MG/DL (0.70-1.30); GLOMERULAR FILTRATION RATE 59.7 (>35); MAGNESIUM LEVEL 2.2 MG/DL (1.8-2.4); POTASSIUM SERUM 3.9 MEQ/L (3.5-5.1)
[2020-05-25] MEDS ORDERED: ELIQ2.5T PO (07:58)
--- NOTE | 2020-05-25 10:34 | DS.PDOC ---
Discharge Summary General Date of Admission May 22, 2020 at 19:13 Date of Discharge 05/25/2020 Discharge Summary PROCEDURES PERFORMED DURING STAY: [None]. ADMITTING DIAGNOSES / DISCHARGE DIAGNOSES: s/p Acute metabolic encephalopathy - possibly 2/2 low blood pressure s/p Hypotension - possibly 2/2 medications and dehydration, less likely 2/2 infection New onset atrial fibrillation Asymptomatic bacteriuria Elevate Cr on CKD3 - likely 2/2 pre-renal etiology s/p Hypomagnesemia Allergic rhinitis BPH DM2 with Neuropathy Restrictive lung disease ALISA on CPAP GERD DVT prophylaxis COMPLICATIONS/CHIEF COMPLAINT: Hypotension. HISTORY OF PRESENT ILLNESS: Patient is an 81-year-old male with a PMHx of Obstructive lung disease, Nocturnal hypoxia, L sided Pepper's Palsy, HTN, DM2, DLP, Vitamin D deficiency, who presented to the hospital with disorientation. Blood glucose levels were normal. Patient was found to be hypotensive on arrival, but improved with IV fluid hydration. . He was started on ceftriaxone for suspected UTI. Patient was admitted to the Hospitalist service for further evaluation and treatment of his hypotension. HOSPITAL COURSE: s/p Acute metabolic encephalopathy - possibly 2/2 low blood pressure - Patient appears to be oriented to person, place and time - No focal neurologic deficits - Has cleared PT - Will have outpatient follow up with PCP s/p Hypotension - possibly 2/2 medications and dehydration, less likely 2/2 infection - Blood pressures have remained normotensive while off medications for last 48 hours - No leukocytosis - Lactic acid has normalized - UA inconsistent with infection - Urine culture 05/22: Staph Warneri <30,000 colonies - Blood cultures 05/22: negative at 48 hours - Will DC BP medications on discharge - Cosyntropin stimulation test with cortisol in normal limits - s/p IV fluid hydration and Ceftriaxone New onset atrial fibrillation - Thyroid function normal - ECHO complete; will have outpatient follow up - Currently is rate controlled without medications - c/w Eliquis - Patient has been advised to follow-up with primary care provider and cardiology within 7 days Asymptomatic bacteriuria - Denies any suprapubic tenderness or any discomfort with urination - Patient maintained hemodynamically stable and afebrile - Urine culture 05/22: Staph Warneri <30,000 colonies - Has received a single dose of ceftriaxone - Will have outpatient follow up with PCP Elevate Cr on CKD3 - likely 2/2 pre-renal etiology - Cr on admission of 1.9 - Baseline Cr of 1.2-1.4 - Cr is within baseline level currently s/p Hypomagnesemia Allergic rhinitis - c/w Cetirizine BPH - c/w Tamsulosin DM2 with Neuropathy - c/w ISS and Gabapentin Restrictive lung disease - No evidence of exacerbation - CXR 05/22: Mild cardiomegaly and stable chronic findings with no acute infiltrate. - c/w inhaled therapy as ordered ALISA on CPAP - allow home CPAP use GERD - c/w Omeprazole DVT prophylaxis - c/w full anticoagulation with Eliquis DISCHARGE MEDICATIONS: Please see below. ALLERGIES: Please see below. PHYSICAL EXAMINATION ON DISCHARGE: Vitals (See below) General: Lying in bed, remains comfortable, awake, alert and oriented 3 HEENT: NC, AT CVS: +S1S2 Lungs: There appears to be fair air entry bilaterally, without evidence of rhonchi, crackles or wheezing Abdomen: Remains soft, without any distention or tenderness Extremities: LE are without any edema, - Calf tenderness LABORATORY DATA: Please see below. ACTIVITY: [As tolerated]. DISPOSITION: Home with services DISCHARGE INSTRUCTIONS: Patient has been advised to follow-up with his primary care provider and business risk consultant within 7 days Patient has been advised to remain compliant with treatment plan and medications Return to the ER if you experience any problems DISCHARGE CONDITION: [Stable]. TIME SPENT ON DISCHARGE: 35 minutes Vital Signs/I&Os Vital Signs Date Time Temp Pulse Resp B/P (MAP) Pulse Ox O2 Delivery O2 Flow Rate FiO2 05/25/20 06:00 97.6 66 20 132/85 (101) 96 Room Air 05/24/20 18:00 2.0 I&O- Last 24 Hours up to 6 AM 05/25/20 06:00 Intake Total 1000 ml Output Total 1025 ml Balance -25 ml Laboratory Data Labs 24H Laboratory Tests 2 05/25/20 06:01: Immature Granulocyte % (Auto) 0.2, Neutrophils (%) (Auto) 64.8, Lymphocytes (%) (Auto) 21.5L, Monocytes (%) (Auto) 9.4H, Eosinophils (%) (Auto) 3.4H, Basophils (%) (Auto) 0.7, Neutrophils # (Auto) 3.7, Lymphocytes # (Auto) 1.2L, Monocytes # (Auto) 0.5, Eosinophils # (Auto) 0.2, Basophils # (Auto) 0.0, Nucleated Red Blood Cells % (auto) 0.0, Anion Gap 6L, Glomerular Filtration Rate 59.7, Calcium Level 8.3#L, Magnesium Level 2.2, Cortisol Baseline 12.6 05/25/20 06:31: Cortisol Response to Stim 1/2 Hour 27.0 05/25/20 07:04: Cortisol Response to Stim 1 Hour 24.9 CBC/BMP Laboratory Tests 05/25/20 06:01 Microbiology Microbiology 05/22/20 Blood Culture - Preliminary, Resulted No Growth after 48 hours. All Specime... 05/22/20 Urine Culture - Final, Complete Staphylococcus Warneri 05/22/20 Blood Culture - Preliminary, Resulted No Growth after 48 hours. All Specime... Discharge Medications Scheduled Apixaban (Eliquis) 2.5 Mg Tablet, 2.5 MG PO BID Ascorbic Acid (Vitamin C) 500 Mg Capsule, 500 MG PO DAILY, (Reported) Cetirizine HCl (Cetirizine HCl) 10 Mg Tablet, 10 MG PO DAILY, (Reported) Gabapentin (Gabapentin) 300 Mg Capsule, 900 MG PO QHS, (Reported) Metformin HCl (Metformin HCl ER) 500 Mg Tab.er.24h, 500 MG PO BID, (Reported) Montelukast Sodium (Montelukast Sodium) 10 Mg Tablet, 10 MG PO DAILY, (Reported) Omeprazole (Omeprazole) 20 Mg Capsule.dr, 20 MG PO QAM, (Reported) Potassium Chloride (Potassium Chloride) 10 Meq Tab.er.prt, 20 MEQ PO BID, (Reported) Rosuvastatin Calcium (Rosuvastatin Calcium) 40 Mg Tablet, 40 MG PO DAILY, (Reported) Tamsulosin HCl (Flomax) 0.4 Mg Capsule, 0.4 MG PO DAILY, (Reported) Vit C/E/Zn/Coppr/Lutein/Zeaxan (Preservision Areds 2 Softgel) 1 Each Capsule, 1 EACH PO BID, (Reported) Scheduled PRN Ipratropium [place] (Ipratropium [place]) 30 Ml [place], 2 SPRAY NARES BID PRN for ALLERGIES AND CONGESTION, (Reported) Polyethylene Glycol 3350 (Polyethylene Glycol 3350) 17 Gm Powd.pack, 17 GRAM PO DAILY PRN for CONSTIPATION, (Reported) Allergies Coded Allergies: Sulfa (Sulfonamide Antibiotics) (Verified Adverse Reaction, Mild, WEAKNESS, 05/22/20) aspirin (Verified Adverse Reaction, Mild, UPSET STOMACH, 05/22/20) IDA PACKER MD May 25, 2020 10:34
[2020-05-25] MEDS: OMEPRAZOLE 20 MG CAP PO SCH (10:56)
[2020-05-25] MEDS: ROSUVASTATIN 10 MG TAB (CRESTOR) PO SCH (10:56)
[2020-05-25] MEDS: ASCORBIC ACID 500 MG TAB PO SCH (10:56)
[2020-05-25] MEDS: TAMSULOSIN 0.4 MG CAP PO SCH (10:56)
[2020-05-25] MEDS: MONTELUKAST 10 MG TAB PO SCH (10:56)
[2020-05-25] MEDS: CETIRIZINE (ZyrTEC) 10 MG TAB PO SCH (10:57)
[2020-05-25] MEDS: APIXABAN 2.5 MG TAB (ELIQUIS) PO SCH (10:57)
[2020-05-25] MEDS: POTASSIUM CHLORIDE 10 MEQ SR TABLET PO SCH (10:57)
--- NOTE | 2020-05-25 13:56 | ECHO ---
DATE OF PROCEDURE: 05/23/2020 DATE OF : 1930 LOCATION: Room 3211 REFERRING PROVIDER: Dr. Shannan Tinsley 2-D MEASUREMENTS: IVS: 1.0 cm LV: 4.7 cm LVPW: 1.2 cm LA: 4.7 cm Aorta: 3.8 cm IVC: 2.4 cm DOPPLER MEASUREMENTS: Peak velocity across the aortic valve: 1.5 m/s Peak velocity across the LVOT: 1.1 m/s Maximum tricuspid valve velocity: 2.5 m/s 2-D COMMENTS: 1. Technically limited study due to poor acoustic window. 2. The left ventricular size is normal as well as ventricular wall thickness and systolic function. The estimated left ventricular systolic ejection fraction is 60-65%. 3. Mildly enlarged left atrium at 4.7 cm. The right atrium and right ventricle appeared to be mildly enlarged in limited views. 4. The atrial septum appeared to be normal without evidence of defect or shunt. 5. Mildly dilated aortic root at 3.8 cm. 6. Trace pericardial effusion noted, no evidence of cardiac tamponade. 7. Mildly calcified aortic valve with normal leaflet excursion. Normal mitral valve and tricuspid valve. The pulmonic valve was not well visualized as well as the proximal pulmonary artery branches. 8. The inferior vena cava was mildly enlarged, central venous pressure is probably mildly elevated. DOPPLER: It detects trace aortic regurgitation, mild mitral regurgitation, and mild tricuspid regurgitation. The calculated pulmonary artery systolic pressure varies between 30-40 mmHg. Assessment of the left ventricular diastolic function was limited. IMPRESSION: 1. Technically limited study due to poor acoustic window. 2. Normal global left ventricular systolic function. 3. Aortic valve sclerosis with trace aortic regurgitation. A mildly dilated aortic root at 3.8 cm was noted. 4. Mild mitral regurgitation with a mildly enlarged left atrium at 4.7 cm. The dilated left atrium is most likely related to some underlying left ventricular diastolic dysfunction because only mild mitral regurgitation was detected. 5. Mild tricuspid regurgitation with mild pulmonary hypertension. The right heart chambers appeared to be mildly enlarged in limited views. 6. Trace pericardial effusion, no evidence of cardiac tamponade. 7. There are features consistent with elevated central venous pressure, the inferior vena cava was mildly enlarged.
== END 2020-05-25 14:56 | disposition home health service (06) | DRG 52 ==
LOC: M ED 16:38 → EDBD 16:38 → M ED INP 19:13 → ENRESERV 20:43 → M PCU 21:18 → M MSPAV 05-24 21:53
PROVIDERS: ADMIT General Practice; ATTEND Internal Medicine
DX: G93.41 Metabolic encephalopathy (principal); N17.9 Acute kidney failure, unspecified; I95.9 Hypotension, unspecified; E11.40 Type 2 diabetes mellitus with diabetic neuropathy, unspecified; I11.0 Hypertensive heart disease with heart failure; E83.42 Hypomagnesemia; I48.91 Unspecified atrial fibrillation; E86.0 Dehydration; N18.3 Chronic kidney disease, stage 3 (moderate); K21.9 Gastro-esophageal reflux disease without esophagitis; G47.33 Obstructive sleep apnea (adult) (pediatric); N40.0 Benign prostatic hyperplasia without lower urinary tract symptoms; E55.9 Vitamin D deficiency, unspecified; J30.9 Allergic rhinitis, unspecified; Z79.899 Other long term (current) drug therapy; Z88.2 Allergy status to sulfonamides; Z88.6 Allergy status to analgesic agent; J32.0 Chronic maxillary sinusitis

== ENCOUNTER → 2020-06-14 | Outpatient (REF) | payer MEDICARE ==
[~2020-06-14] MED LIST changes: -GABA-282 PO; +GABA-843 PO; +LISI-538 PO; -LISI20TA33 PO; -MONT10TA10 PO; +MONT10TA4 PO
[2020-07-12 22:50] LABS: HEMOGLOBIN 12.1 g/dl (13.5-17.5); MEAN CORPUSCULAR HEMOGLOBIN 30.8 pg (27.0-33.0); MEAN CORPUSCULAR HGB CONC 31.8 g/dl (32.0-36.5); MEAN CORPUSCULAR VOLUME 96.7 fl (80.0-96.0); PLATELET COUNT, AUTOMATED 126 10^3/uL (150-450); RED BLOOD COUNT 3.93 10^6/uL (4.30-6.10); WHITE BLOOD COUNT 5.7 10^3/uL (4.0-10.0)
[2020-07-21 11:33] LABS: CALCIUM LEVEL 8.7 MG/DL (8.8-10.2); CREATININE FOR GFR 1.46 MG/DL (0.70-1.30); GLOMERULAR FILTRATION RATE 48.5 (>35); POTASSIUM SERUM 4.2 MEQ/L (3.5-5.1)
== END ==
LOC: M LABDRAWC 18:56
PROVIDERS: ATTEND Physician Assistant
DX: I13.10 Hypertensive heart and chronic kidney disease without heart failure, with stage 1 through stage 4 chronic kidney disease, or unspecified chronic kidney disease (principal); I48.19 Other persistent atrial fibrillation

== ENCOUNTER → 2020-10-31 | Outpatient (CLI) | payer MEDICARE, BC ==
[~2020-10-31] MED LIST changes: -MONT10TA4 PO; +MONT5TAB2 PO
--- NOTE | 2020-10-31 14:29 | REP ---
INDICATION: SPONDYLOSIS ? METS. COMPARISON: Comparison is made with MRI study of the cervical spine from [address] study of the brain from May 22, 2020.. TECHNIQUE/RADIOTRACER AND DOSE: 21.8 mCi of Technetium-99m MDP was injected and standard whole-body bone scanning is acquired. FINDINGS: There is mild degenerative uptake pattern in the lumbar spine at the 3 4 and 4 5 disc space levels. Mild arthritic uptake is seen in the left wrist and in both acromioclavicular joint regions. There is increased uptake in the region of the frontal sinus on the left. This correlates with the completely opacified left frontal sinus seen on the May 22, 2020 prior study and is consistent with chronic left maxillary sinusitis. There is increased uptake about the right hip consistent with arthropathy in the hip. 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 There is no evidence to suggest skeletal metastatic disease. IMPRESSION: No evidence to suggest skeletal metastasis. Degenerative and arthritic uptake pattern. Mild uptake about the left frontal sinus consistent with chronic left frontal sinusitis.. <Electronically signed by Dirk Jackson > 10/31/20 [id number]
== END ==
LOC: M RAD 09:47
PROVIDERS: ATTEND Physician Assistant
DX: M47.812 Spondylosis without myelopathy or radiculopathy, cervical region (principal)
CPT/HCPCS: 78306; A9503

== ENCOUNTER → 2021-01-02 | Outpatient (REF) | payer MEDICARE ==
[~2021-01-02] MED LIST changes: +GABA-282 PO; -GABA-843 PO; -LISI-538 PO; +LISI20TA33 PO; +MONT10TA10 PO; -MONT5TAB2 PO
[2021-01-02 16:14] LABS: HEMATOCRIT 34.8 % (42.0-52.0); HEMOGLOBIN 10.9 g/dl (13.5-17.5); MEAN CORPUSCULAR HGB CONC 31.3 g/dl (32.0-36.5); MEAN CORPUSCULAR VOLUME 92.6 fl (80.0-96.0); PLATELET COUNT, AUTOMATED 119 10^3/uL (150-450); RED BLOOD COUNT 3.76 10^6/uL (4.30-6.10); WHITE BLOOD COUNT 5.9 10^3/uL (4.0-10.0)
[2021-01-02 16:17] LABS: ALBUMIN 3.8 GM/DL (3.2-5.2); BILIRUBIN,TOTAL 0.5 MG/DL (0.2-1.0); CALCIUM LEVEL 8.9 MG/DL (8.8-10.2); CHOLESTEROL RISK RATIO 2.18 (<5); CREATININE FOR GFR 1.45 MG/DL (0.70-1.30); GLOMERULAR FILTRATION RATE 48.8 (>35); POTASSIUM SERUM 3.9 MEQ/L (3.5-5.1)
== END ==
LOC: M SFHCCLAY 10:09
PROVIDERS: ATTEND Family Medicine
DX: N18.2 Chronic kidney disease, stage 2 (mild) (principal); E78.2 Mixed hyperlipidemia; E11.22 Type 2 diabetes mellitus with diabetic chronic kidney disease

== ENCOUNTER → 2021-02-01 | Outpatient (REF) | payer MEDICARE, BC ==
[~2021-02-01] MED LIST changes: -PEG1POW PO; +POLY17PO18 PO
[2021-02-01 17:31] LABS: CREATININE FOR GFR 1.68 MG/DL (0.70-1.30); GLOMERULAR FILTRATION RATE 41.2 (>35)
== END ==
LOC: M LABDRWAD 16:25 → M LABDRAWC 16:25
PROVIDERS: ATTEND Physician Assistant
DX: G56.03 Carpal tunnel syndrome, bilateral upper limbs (principal); M25.532 Pain in left wrist; M79.632 Pain in left forearm

== ENCOUNTER → 2021-02-04 | Outpatient (CLI) | payer MEDICARE, BC ==
[~2021-02-04] MED LIST changes: +PROHANCE 279.3MG/ML 15ML VIAL As Ordered ONE
--- NOTE | 2021-02-04 18:42 | REP ---
INDICATION: PAIN IN LEFT FOREARM. COMPARISON: None. TECHNIQUE: Multiple sequences obtained in the axial, coronal and sagittal planes prior to and following the intravenous administration of 8 mL ProHance. FINDINGS: The radius and ulna demonstrate normal bone marrow signal. There is no bone marrow edema or occult fracture. There is no abnormal osseous enhancement. Surrounding soft tissue structures demonstrate no abnormal signal. No evidence of muscle tear or ganglion cyst. There is no abnormal soft tissue enhancement. IMPRESSION: Negative exam left forearm with and without contrast. <Electronically signed by Rivera Hardin > 02/04/21 [id number]
== END ==
LOC: M RAD 13:19
PROVIDERS: ATTEND Physical Medicine & Rehabilitation
DX: M79.632 Pain in left forearm (principal)
CPT/HCPCS: 73220; A9576

== ENCOUNTER 2021-02-13 11:32 | Observation (INO) | payer MEDICARE, BC ==
[~2021-02-13] VITALS: Ht 180.3 cm; Wt 87.9 kg
[2021-02-13] MEDS: TAMSULOSIN 0.4 MG CAP PO SCH (09:00)
[~2021-02-13 11:32] MED LIST changes: -PROHANCE 279.3MG/ML 15ML VIAL As Ordered ONE
[2021-02-13 12:48] LABS: BASO % 0.3 % (0.0-1.0); EOS # 0.1 10^3/uL (0.0-0.5); HEMATOCRIT 32.9 % (42.0-52.0); HEMOGLOBIN 10.6 g/dl (13.5-17.5); LYMPH # 0.8 10^3/uL (1.5-5.0); LYMPH % 12.8 % (24.0-44.0); MEAN CORPUSCULAR HEMOGLOBIN 29.7 pg (27.0-33.0); MEAN CORPUSCULAR HGB CONC 32.2 g/dl (32.0-36.5); MEAN CORPUSCULAR VOLUME 92.2 fl (80.0-96.0); MONO # 0.5 10^3/uL (0.0-0.8); MONO % 8.3 % (2.0-8.0); NEUTROPHILS # 4.5 10^3/uL (1.5-8.5); NEUTROPHILS % 76.3 % (36.0-66.0); PLATELET COUNT, AUTOMATED 111 10^3/uL (150-450); RED BLOOD COUNT 3.57 10^6/uL (4.30-6.10); WHITE BLOOD COUNT 5.9 10^3/uL (4.0-10.0)
[2021-02-13 13:01] LABS: INR 1.26
[2021-02-13 13:02] LABS: PARTIAL THROMBOPLASTIN TIME 30.9 SECONDS (24.2-38.5)
[2021-02-13 13:08] LABS: ALBUMIN 3.3 GM/DL (3.2-5.2); ALT/SGPT 16 U/L (12-78); BILIRUBIN,DIRECT 0.1 MG/DL (0.0-0.2); BILIRUBIN,TOTAL 0.3 MG/DL (0.2-1.0); BLOOD UREA NITROGEN 24 MG/DL (7-18); CARBON DIOXIDE LEVEL 30 MEQ/L (21-32); CHLORIDE LEVEL 104 MEQ/L (98-107); CK-MB VALUE MASS 3.5 NG/ML (<3.6); CPK CREATINE PHOSPHOKINASE 83 U/L (39-308); CREATININE FOR GFR 1.55 MG/DL (0.70-1.30); FREE T4 0.99 NG/DL (0.76-1.46); GLOMERULAR FILTRATION RATE 45.2 (>35); GLUCOSE, FASTING 133 MG/DL (70-100); MAGNESIUM LEVEL 2.1 MG/DL (1.8-2.4); MB/CK RELATIVE INDEX 4.22 (< OR =4); POTASSIUM SERUM 3.9 MEQ/L (3.5-5.1); SODIUM LEVEL 140 MEQ/L (136-145); TOTAL PROTEIN 6.5 GM/DL (6.4-8.2); TROPONIN I < 0.02 NG/ML (< 0.10)
--- NOTE | 2021-02-13 13:19 | REP ---
INDICATION: syncope. COMPARISON: 05/22/2020. TECHNIQUE: CT BRAIN PERFORMED IN THE AXIAL PLANE. CORONAL RECONSTRUCTION IMAGES ARE PERFORMED. FINDINGS: There is moderate atrophy again noted. There is an old left frontal infarct unchanged. There is mild chronic periventricular small vessel ischemic change. There is no acute intracranial hemorrhage or extra-axial fluid collection. There is no midline shift or mass effect. Bilateral basal ganglia calcifications are again noted, right greater than left. There are vascular calcifications in the carotid siphons. The left frontal sinus is completely opacified as seen on prior study. IMPRESSION: Stable chronic findings. No acute intracranial hemorrhage, midline shift or mass effect. <Electronically signed by Rivera Hardin > 02/13/21 [id number]
--- NOTE | 2021-02-13 13:21 | REP ---
INDICATION: syncope. COMPARISON: 05/24/2020 TECHNIQUE: AP portable seated chest FINDINGS: Slight E elevation of the right diaphragm as before some linear fibrotic change in the retrocardiac left lower lobe and at the CP angle. No definite effusion, dense consolidation or parenchymal mass. Left ventricular configuration of the heart. No vascular redistribution or edema. The aorta is calcified and tortuous, appearance appearance is unchanged. Airway intact. No mediastinal or hilar mass suggested. Degenerative changes in the spine and shoulders as before. I see no free air under the diaphragm. IMPRESSION: 1. Some left ventricular configuration of the heart without vascular redistribution or edema. 2. No definite infiltrate. There is some linear atelectatic or fibrotic change retrocardiac left lower lobe and left CP angle. No gross effusion. 3. Tortuous calcified aorta unchanged. No widening of the mediastinum, hilar mediastinal mass/contour abnormality or acute bony finding. <Electronically signed by Seth Lazo > 02/13/21 [id number]
[2021-02-13] MEDS ORDERED: MIRALAX *UNIT DOSE* 17GM PACKET PO PRN (13:45)
[2021-02-13] MEDS ORDERED: ACETAMINOPHEN TAB 650MG DOSE (2X325MG) PO PRN (13:45)
[2021-02-13] MEDS ORDERED: TRIA37.5 PO (13:50)
[2021-02-13] MEDS ORDERED: ELIQ2.5T PO (13:50)
[2021-02-13] MEDS ORDERED: CALC600T60 PO (13:50)
[2021-02-13] MEDS ORDERED: D31000TA2 PO (13:50)
[2021-02-13] MEDS ORDERED: GLUCOSE 4GM CHEW TABLET PO PRN (14:30)
[2021-02-13] MEDS ORDERED: DEXTROSE 50% 50 ML SYRINGE IV PRN (14:30)
[2021-02-13] MEDS ORDERED: GLUCAGON INJ 1MG VIAL SC PRN (14:30)
--- NOTE | 2021-02-13 15:19 | HPEPDOC ---
[facility] Medical History & Physical Date of Admission Feb 13, 2021 Date of Service: Feb 13, 2021 Attending Physician: NELI YOUNG MD History and Physical CHIEF COMPLAINT: sudden LOC lasting 10 minutes HISTORY OF PRESENT ILLNESS: 89-year-old man, recently who lives at home alone with family very close by, who was brought in by EMS after he was noted by his daughter whom he was s itting with while visiting his brother after nondenominational, to have suddenly slumped and "gone to sleep" and was unresponsive for close to 10 mins. He has a medical history significant for paroxysmal Afib, HTN, DM. He had a similar episode in 05/2020 that lasted close to 30 minutes that time for which he was admitted and found to be mildly hypotensive and later diagnosed with paroxysmal Afib and started on eliquis. This time, he was sitting on the couch and slumped over but the daughter reported that he was glassy eyed and staring right before the episode occurred. On arrival of EMS, during the commotion, he regained consciousness but had no idea what had occurred. He did not have tonic clonic jerking, loss of bowel or bladder control or physical complaints on regaining consciousness. He denied any recent experience of fever, chills, nausea, emesis, headaches, chest pain, palpitations, abdominal pain, asymmetrical weakness or vision changes. In the ED, he was hemodynamically stable, afebrile and breathing comfortably on room air. He had a CT of the head was negative for acute hemorrhage, masses or midline shift, a CXR that showed slight elevation of the R hemidiaphragm without acute pathology noted, WBC was 5.9, Hgb 10.6 per baseline anemia, platelets 111, Na 140, K 3.9, Cr 1.55 at his baseline, glucose 133, troponin wnl, EKG with NSR with first degree HB. His last TTE that was performed in 05/2020 during a similar episode showed an EF of 60-65% without noted significant valvular abnormalities and mild diastolic dysfunction. In speaking with his software systems architect Dr. Figueroa, he did not think another TTE would yield answers for this prolonged LOC that is technically by definition beyond syncope and will admit him for observation on telemetry. Of note, orthostatics in the ED were negative. Neuro examination was back to baseline and he had no physical complaints. PAST MEDICAL HISTORY: Obstructive lung disease on pulmonary function test (PFT) February 2004 on supplemental oxygen nightly. 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 Type 2 diabetes. Hypertension. Obstructive sleep apnea compliant with CPAP. Benign prostatic hypertrophy (BPH). Hyperlipidemia. Vitamin D deficiency. Colonic adenomatous polyps. 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 Asymmetrical calcifications in the basal ganglia Bilateral cataracts Hyperlipidemia Restrictive lung disease on home oxygen CKD ALLERGIES: Mold - causing nausea and vomiting, SULFA and ASPIRIN. PAST SURGICAL HISTORY: Transurethral resection of prostate by Dr. Mistry. Colonoscopies for tubular adenomas. Hyperplastic polyps. Cystoscopy 2017. HOME MEDICATIONS: see below SOCIAL HISTORY: Patent lives with at home alone. Recently . Health care proxy is his daughter. She confirmed that he is FULL CODE at this time. Retired. Denies any alcohol abuse or recreational drug use. Nonsmoker. FAMILY HISTORY: Father suffered near fatal gunshot in his younger years and survived, and years later from old age. PHYSICAL EXAMINATION: Vitals: see below. HDS, afebrile, breathing comfortably on room air. General: pleasant elderly gentleman, hard of hearing, NAD Head: NCAT Eyes: PERRLA, EOMI, anicteric, no injection ENT: hard of hearing, MMM Neck: No JVD, no noted thyromegaly Pulm: CTAB, moving air very well, breathing comfortably on room air, no wheezing, rales or rhonchi Cardiac: currently RRR, no m/r/g Abd: Normoactive bowel sounds, soft, NTND Ext: WWP, no LE edema Neuro: clear speech, AOx3, moving all extremities Psych: AOx3. Labs and Imaging: as reviewed above in HPI ASSESSMENT: 89-year-old man with a history of paroxysmal Afib, previously admitted for sudden unresponsive episode with LOC for ~30 min prior, now brought in by EMS after he was unresponsive for close to 10 mins with LOC and admitted for observation, workup and management. PLAN: Acute prolonged unresponsive period with LOC: -telemetry -q4h neuro checks -will order EEG -EKG was sinus today with 1st degree HB -troponin negative -CT head was without acute pathology -UA with reflex to UCx -CXR did not show acute pathology -glucose level was >130 -Had recent TTE, as noted above in HPI. In my discussion with Dr. Figueroa will defer repeat TTE for now Hypertension: -continue home meds Type 2 diabetes: -SSI ACHS -FSBG ACHS -hypoglycemia protocol -hold home metformin Atrial fibrillation: -telemetry -continue home eliquis 2.5BID Allergic rhinitis: -Continue on Zyrtec. Benign prostatic hypertrophy (BPH): -Continue on Flomax Chronic diabetic neuropathy: -continue gabapentin Obstructive sleep apnea: -Continue on CPAP QHS. Vital Signs Vital Signs Date Time Temp Pulse Resp B/P (MAP) Pulse Ox O2 Delivery O2 Flow Rate FiO2 02/13/21 12:25 69 132/66 (88) 75 129/73 (91) 76 129/64 (85) 02/13/21 11:59 97.9 17 97 Room Air Laboratory Data Labs 24H Laboratory Tests 2 02/13/21 12:20: Immature Granulocyte % (Auto) 0.3, Neutrophils (%) (Auto) 76.3H, Lymphocytes (%) (Auto) 12.8L, Monocytes (%) (Auto) 8.3H, Eosinophils (%) (Auto) 2.0, Basophils (%) (Auto) 0.3, Neutrophils # (Auto) 4.5, Lymphocytes # (Auto) 0.8L, Monocytes # (Auto) 0.5, Eosinophils # (Auto) 0.1, Basophils # (Auto) 0.0, Nucleated Red Bl ood Cells % (auto) 0.0, Prothrombin Time 16.0H, Prothromb Time International Ratio 1.26, Activated Partial Thromboplast Time 30.9, Anion Gap 6L, Glomerular Filtration Rate 45.2, Calcium Level 9.0, Magnesium Level 2.1, Total Bilirubin 0.3, Direct Bilirubin 0.1, Aspartate Amino Transf (AST/SGOT) 18, Alanine Aminotransferase (ALT/SGPT) 16, Alkaline Phosphatase 116, Total Creatine Kinase 83, Creatine Kinase MB 3.5, Creatine Kinase MB Relative Index 4.22H, Troponin I < 0.02, Total Protein 6.5, Albumin 3.3, Albumin/Globulin Ratio 1.0, Thyroid Stimulating Hormone (TSH) 3.980H, Free Thyroxine 0.99 02/13/21 12:23: Bedside Glucose (Misc Panel) 131H CBC/BMP Laboratory Tests 3/31/21 12:20 Microbiology Microbiology 02/13/21 Respiratory Virus Panel (PCR) (JINA), Received Pending Home Medications Scheduled Apixaban (Eliquis) 2.5 Mg Tablet, 2.5 MG PO BID Ascorbic Acid (Vitamin C) 500 Mg Capsule, 500 MG PO DAILY Calcium Carbonate (Calcium) 600 Mg Tablet, 600 MG PO DAILY Cholecalciferol (Vitamin D3) (Vitamin D3) 1,000 Unit Tablet, 1,000 UNITS PO DAILY Gabapentin (Gabapentin) 300 Mg Capsule, 900 MG PO QHS Metformin HCl (Metformin HCl ER) 500 Mg Tab.er.24h, 500 MG PO DAILY Montelukast Sodium (Montelukast Sodium) 10 Mg Tablet, 10 MG PO QPM DINNERTIME Omeprazole (Omeprazole) 20 Mg Capsule.dr, 20 MG PO QAM Potassium Chloride (Potassium Chloride) 10 Meq Tab.er.prt, 20 MEQ PO BID Rosuvastatin Calcium (Rosuvastatin Calcium) 40 Mg Tablet, 40 MG PO QPM DINNERTIME Tamsulosin HCl (Flomax) 0.4 Mg Capsule, 0.4 MG PO DAILY TAKES IN THE AFTERNOON Triamterene/Hydrochlorothiazid (Triamterene-Hctz 37.5-25 mg Tb) 1 Each Tablet, 0.5 TAB PO DAILY Vit C/E/Zn/Coppr/Lutein/Zeaxan (Preservision Areds 2 Softgel) 1 Each Capsule, 1 EACH PO BID Scheduled PRN Polyethylene Glycol 3350 (Polyethylene Glycol 3350) 17 Gm Powd.pack, 17 GRAM PO DAILY PRN for CONSTIPATION Allergies Coded Allergies: Sulfa (Sulfonamide Antibiotics) (Verified Adverse Reaction, Mild, WEAKNESS, 05/22/20) aspirin (Verified Adverse Reaction, Mild, UPSET STOMACH, 05/22/20) A-FIB/CHADSVASC A-FIB History Current/History of A-Fib/PAF?: Yes Current PO Anticoag Therapy: Yes Age/Risk Factor Scoring CHADSVASC: CHADSVASC Response (Comments) Value Age Risk Factor Age >/= 75 years old 2 Total 2 Treatment Treatment ordered: Apixaban NELI YOUNG MD Feb 13, 2021 15:19
[2021-02-13 16:53] VITALS: BP 170/80
[2021-02-13] MEDS ORDERED: LORazepam 2 MG/ML VIAL IV ONE (17:25)
[2021-02-13] MEDS: HumaLOG INSULIN (NovoLOG) PER UNIT SC SCH ×2 (18:08→21:00)
[2021-02-13] MEDS: DYAZIDE 37.5/25 CAP (TRIAM/HCTZ) PO SCH (19:34)
[2021-02-13 20:00] VITALS: BP 160/83
--- NOTE | 2021-02-13 20:41 | ECGEPIP ---
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
[2021-02-13] MEDS: ROSUVASTATIN 10 MG TAB (CRESTOR) PO SCH (21:27)
[2021-02-13] MEDS: GABAPENTIN 300 MG CAP PO SCH (21:27)
[2021-02-13] MEDS: POTASSIUM CHLORIDE 10 MEQ SR TABLET PO SCH (21:28)
[2021-02-13] MEDS: APIXABAN 2.5 MG TAB (ELIQUIS) PO SCH (21:29)
[2021-02-13] MEDS: MONTELUKAST 10 MG TAB PO SCH (21:29)
[2021-02-13 23:02] VITALS: BP 136/82
[2021-02-14 06:00] VITALS: BP 160/82
[2021-02-14 06:36] LABS: HEMATOCRIT 33.2 % (42.0-52.0); HEMOGLOBIN 10.7 g/dl (13.5-17.5); MEAN CORPUSCULAR HEMOGLOBIN 29.5 pg (27.0-33.0); MEAN CORPUSCULAR HGB CONC 32.2 g/dl (32.0-36.5); MEAN CORPUSCULAR VOLUME 91.5 fl (80.0-96.0); PLATELET COUNT, AUTOMATED 117 10^3/uL (150-450); RED BLOOD COUNT 3.63 10^6/uL (4.30-6.10); WHITE BLOOD COUNT 5.6 10^3/uL (4.0-10.0)
[2021-02-14 07:03] LABS: CALCIUM LEVEL 8.6 MG/DL (8.8-10.2); CREATININE FOR GFR 1.39 MG/DL (0.70-1.30); GLOMERULAR FILTRATION RATE 51.2 (>35); MAGNESIUM LEVEL 2.1 MG/DL (1.8-2.4); POTASSIUM SERUM 3.7 MEQ/L (3.5-5.1)
[2021-02-14] MEDS: HumaLOG INSULIN (NovoLOG) PER UNIT SC SCH ×4 (07:30→20:52)
[2021-02-14 08:00] VITALS: BP 158/84
[2021-02-14] MEDS ORDERED: DYAZIDE 37.5/25 CAP (TRIAM/HCTZ) PO SCH (09:00)
[2021-02-14] MEDS: DYAZIDE 37.5/25 CAP (TRIAM/HCTZ) PO SCH (09:15)
[2021-02-14] MEDS: OMEPRAZOLE 20 MG CAP PO SCH (09:15)
[2021-02-14] MEDS: POTASSIUM CHLORIDE 10 MEQ SR TABLET PO SCH ×2 (09:15→20:42)
[2021-02-14] MEDS: VITAMIN D 1,000 INTERNATIONAL UNITS TABLET PO SCH (09:15)
[2021-02-14] MEDS: TAMSULOSIN 0.4 MG CAP PO SCH (09:15)
[2021-02-14] MEDS: APIXABAN 2.5 MG TAB (ELIQUIS) PO SCH ×2 (09:15→20:41)
[2021-02-14] MEDS: ASCORBIC ACID 500 MG TAB PO SCH (09:15)
[2021-02-14 14:00] VITALS: BP 115/66
--- NOTE | 2021-02-14 15:22 | IPNPDOC ---
Text Note Date of Service The patient was seen on 02/14/21. NOTE SUBJECTIVE: No acute events overnight PHYSICAL EXAMINATION: Vitals: see below. HDS, afebrile, breathing comfortably on room air. General: pleasant elderly gentleman, hard of hearing, NAD Head: NCAT Eyes: PERRLA, EOMI, anicteric, no injection ENT: hard of hearing, MMM Neck: No JVD, no noted thyromegaly Pulm: CTAB, moving air very well, breathing comfortably on room air, no w heezing, rales or rhonchi Cardiac: currently RRR, no m/r/g Abd: Normoactive bowel sounds, soft, NTND Ext: WWP, no LE edema Neuro: clear speech, AOx3, moving all extremities Psych: AOx3. Labs and Imaging: as reviewed above in HPI ASSESSMENT: 89-year-old man with a history of paroxysmal Afib, previously admitted for sudden unresponsive episode with LOC for ~30 min prior, now brought in by EMS after he was unresponsive for close to 10 mins with LOC and admitted for observation, workup and management. PLAN: Acute prolonged unresponsive period with LOC: -telemetry -q4h neuro checks -pending EEG results -EKG was sinus with 1st degree HB -troponin negative -CT head was without acute pathology -UA was bland -CXR did not show acute pathology -glucose level was >130 -Had recent TTE, as noted above in HPI. In my discussion with Dr. Figueroa will defer repeat TTE for now -PT/OT Hypertension: -continue home meds Type 2 diabetes: -SSI ACHS -FSBG ACHS -hypoglycemia protocol -hold home metformin Atrial fibrillation: -telemetry -continue home eliquis 2.5BID Allergic rhinitis: -Continue on Zyrtec. Benign prostatic hypertrophy (BPH): -Continue on Flomax Chronic diabetic neuropathy: -continue gabapentin Obstructive sleep apnea: -Continue on CPAP QHS. Dispo: pending PT/OT and EEG read, likely home tomorrow VS,Fishbone, I+O VS, Fishbone, I+O Laboratory Tests 02/14/21 06:15 Vital Signs Date Time Temp Pulse Resp B/P (MAP) Pulse Ox O2 Delivery O2 Flow Rate FiO2 02/14/21 14:00 98.2 88 20 115/66 (82) 95 Room Air I&O- Last 24 Hours up to 6 AM 02/14/21 06:00 Intake Total 500 ml Output Total 1400 ml Balance -900 ml NELI YOUNG MD Feb 14, 2021 15:22
[2021-02-14 16:00] VITALS: BP 138/76
[2021-02-14] MEDS: ROSUVASTATIN 10 MG TAB (CRESTOR) PO SCH (20:41)
[2021-02-14] MEDS: MONTELUKAST 10 MG TAB PO SCH (20:42)
[2021-02-14] MEDS: GABAPENTIN 300 MG CAP PO SCH (20:42)
[2021-02-14 22:00] VITALS: BP 142/70
[2021-02-15 02:00] VITALS: BP 118/70
[2021-02-15 06:00] VITALS: BP 125/76
[2021-02-15 07:06] LABS: HEMOGLOBIN 10.6 g/dl (13.5-17.5); MEAN CORPUSCULAR HEMOGLOBIN 29.2 pg (27.0-33.0); MEAN CORPUSCULAR HGB CONC 32.1 g/dl (32.0-36.5); MEAN CORPUSCULAR VOLUME 90.9 fl (80.0-96.0); PLATELET COUNT, AUTOMATED 113 10^3/uL (150-450); RED BLOOD COUNT 3.63 10^6/uL (4.30-6.10); WHITE BLOOD COUNT 5.9 10^3/uL (4.0-10.0)
[2021-02-15 07:33] LABS: CALCIUM LEVEL 8.5 MG/DL (8.8-10.2); CREATININE FOR GFR 1.49 MG/DL (0.70-1.30); GLOMERULAR FILTRATION RATE 47.3 (>35); POTASSIUM SERUM 3.9 MEQ/L (3.5-5.1)
[2021-02-15] MEDS: APIXABAN 2.5 MG TAB (ELIQUIS) PO SCH (08:19)
[2021-02-15] MEDS: POTASSIUM CHLORIDE 10 MEQ SR TABLET PO SCH (08:19)
[2021-02-15] MEDS: DYAZIDE 37.5/25 CAP (TRIAM/HCTZ) PO SCH (08:19)
[2021-02-15] MEDS: ASCORBIC ACID 500 MG TAB PO SCH (08:19)
[2021-02-15] MEDS: VITAMIN D 1,000 INTERNATIONAL UNITS TABLET PO SCH (08:19)
[2021-02-15] MEDS: TAMSULOSIN 0.4 MG CAP PO SCH (08:19)
[2021-02-15] MEDS: OMEPRAZOLE 20 MG CAP PO SCH (08:19)
[2021-02-15] MEDS: HumaLOG INSULIN (NovoLOG) PER UNIT SC SCH (08:20)
--- NOTE | 2021-02-15 09:00 | DS.PDOC ---
Discharge Summary General Date of Admission Feb 13, 2021 at 11:33 Date of Discharge 02/15/2021 Attending Physician: NELI YOUNG MD Discharge Summary PROCEDURES PERFORMED DURING STAY: None ADMITTING DIAGNOSES: Syncope DISCHARGE DIAGNOSES: Prolonged episode of LOC, NOS Obstructive lung disease on pulmonary function test (PFT) February 2004 on supplemental oxygen nightly. 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 Type 2 diabetes. Hypertension. Obstructive sleep apnea compliant with CPAP. Benign prostatic hypertrophy (BPH). Hyperlipidemia. Vitamin D deficiency. Colonic adenomatous polyps. 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 HISTORY OF PRESENT ILLNESS: 89-year-old man, recently who lives at home alone with family very close by, who was brought in by EMS after he was noted by his daughter whom he was sitting with while visiting his brother after mormonism, to have suddenly slumped and "gone to sleep" and was unresponsive for close to 10 mins. He has a medical history significant for paroxysmal Afib, HTN, DM. He had a similar episode in 05/2020 that lasted close to 30 minutes that time for which he was admitted and found to be mildly hypotensive and later diagnosed with paroxysmal Afib and started on eliquis. This time, he was sitting on the couch and slumped over but the daughter reported that he was glassy eyed and staring right before the episode occurred. During the episode the daughter reported that he was breathing comfortably had a pulse and appeared as if he was sleeping without convulsions, twitching, foaming at the mouth or loss of bowel or bladder control. On arrival of EMS, during the commotion, he regained consciousness but had no idea what had occurred. He did not have physical complaints on regaining consciousness. He denied any recent experience of fever, chills, nausea, emesis, headaches, chest pain, palpitations, abdominal pain, asymmetrical weakness or vision changes. HOSPITAL COURSE: In the ED, he was hemodynamically stable, afebrile and breathing comfortably on room air. He had a CT of the head was negative for acute hemorrhage, masses or midline shift, a CXR that showed slight elevation of the R hemidiaphragm without acute pathology noted, WBC was 5.9, Hgb 10.6 per baseline anemia, platelets 111, Na 140, K 3.9, Cr 1.55 at his baseline, glucose 133, troponin wnl, EKG with NSR with first degree HB. His last TTE that was performed in 05/2020 during a similar episode showed an EF of 60-65% without noted significant valvular abnormalities and mild diastolic dysfunction. In speaking with his bell valet Dr. Figueroa, he did not think another TTE would yield answers for this prolonged LOC that is technically by definition beyond syncope and was admitted for observation on telemetry. Of note, orthostatics in the ED were negative. Neuro examination was back to baseline and he had no physical complaints. While inpatient he did not have further episodes and worked with PT and was deemed safe for home discharge with home PT. He did have a spot EEG for which the read is still pending at discharge and given the unclear etiology of these episodes that do not appear cardiac in nature, I will refer him to neurology in the outpatient setting for further evaluation. DISCHARGE MEDICATIONS: Please see below. ALLERGIES: Please see below. PHYSICAL EXAMINATION ON DISCHARGE: VITAL SIGNS: Please see below. General: pleasant elderly gentleman, hard of hearing, NAD Head: NCAT Eyes: PERRLA, EOMI, anicteric, no injection ENT: hard of hearing, MMM Neck: No JVD, no noted thyromegaly Pulm: CTAB, moving air very well, breathing comfortably on room air, no wheezing, rales or rhonchi Cardiac: currently RRR, no m/r/g Abd: Normoactive bowel sounds, soft, NTND Ext: WWP, no LE edema Neuro: clear speech, AOx3, moving all extremities Psych: AOx3. LABORATORY DATA: Please see below. IMAGING: CT head: There is moderate atrophy again noted. There is an old left frontal infarct unchanged. There is mild chronic periventricular small vessel ischemic change. There is no acute intracranial hemorrhage or extra-axial fluid collection. There is no midline shift or mass effect. Bilateral basal ganglia calcifications are again noted, right greater than left. There are vascular calcifications in the carotid siphons. The left frontal sinus is completely opacified as seen on prior study. IMPRESSION: Stable chronic findings. No acute intracranial hemorrhage, midline shift or mass effect. CXR: Slight E elevation of the right diaphragm as before some linear fibrotic change in the retrocardiac left lower lobe and at the CP angle. No definite effusion, dense consolidation or parenchymal mass. Left ventricular configuration of the heart. No vascular redistribution or edema. The aorta is calcified and tortuous, appearance appearance is unchanged. Airway intact. No mediastinal or hilar mass suggested. Degenerative changes in the spine and shoulders as before. I see no free air under the diaphragm. IMPRESSION: 1. Some left ventricular configuration of the heart without vascular redistribution or edema. 2. No definite infiltrate. There is some linear atelectatic or fibrotic change retrocardiac left lower lobe and left CP angle. No gross effusion. 3. Tortuous calcified aorta unchanged. No widening of the mediastinum, hilar mediastinal mass/contour abnormality or acute bony finding. PROGNOSIS: Good ACTIVITY: As tolerated DIET: Consistent carb DISCHARGE PLAN: Home with neurology referral DISPOSITION: Home DISCHARGE INSTRUCTIONS: Home with neurology referral ITEMS TO FOLLOWUP ON ON OUTPATIENT: Episodes of prolonged LOC DISCHARGE CONDITION: Stable TIME SPENT ON DISCHARGE: 34 minutes. Vital Signs/I&Os Vital Signs Date Time Temp Pulse Resp B/P (MAP) Pulse Ox O2 Delivery O2 Flow Rate FiO2 02/15/21 06:00 98.0 61 20 125/76 (92) 96 Room Air I&O- Last 24 Hours up to 6 AM 02/15/21 06:00 Intake Total 900 ml Output Total 720 ml Balance 180 ml Laboratory Data Labs 24H Laboratory Tests 2 02/14/21 11:28: Bedside Glucose (Misc Panel) 129H 02/14/21 16:47: Bedside Glucose (Misc Panel) 159H 02/14/21 20:49: Bedside Glucose (Misc Panel) 97 02/15/21 06:32: Nucleated Red Blood Cells % (auto) 0.0, Anion Gap 4L, Glomerular Filtration Rate 47.3, Calcium Level 8.5L CBC/BMP Laboratory Tests 02/15/21 06:32 FSBS Laboratory Tests Test 02/14/21 11:28 02/14/21 16:47 02/14/21 20:49 Range/Units Bedside Glucose (Misc Panel) 129 159 97 83-110 MG/DL Microbiology Microbiology 02/13/21 Respiratory Virus Panel (PCR) ([facility]) - Final, Complete Discharge Medications Scheduled Apixaban (Eliquis) 2.5 Mg Tablet, 2.5 MG PO BID, (Reported) Ascorbic Acid (Vitamin C) 500 Mg Capsule, 500 MG PO DAILY, (Reported) Calcium Carbonate (Calcium) 600 Mg Tablet, 600 MG PO DAILY, (Reported) Cholecalciferol (Vitamin D3) (Vitamin D3) 1,000 Unit Tablet, 1,000 UNITS PO DAILY, (Reported) Gabapentin (Gabapentin) 300 Mg Capsule, 900 MG PO QHS, (Reported) Metformin HCl (Metformin HCl ER) 500 Mg Tab.er.24h, 500 MG PO DAILY, (Reported) Montelukast Sodium (Montelukast Sodium) 10 Mg Tablet, 10 MG PO QPM, (Reported) DINNERTIME Omeprazole (Omeprazole) 20 Mg Capsule.dr, 20 MG PO QAM, (Reported) Potassium Chloride (Potassium Chloride) 10 Meq Tab.er.prt, 20 MEQ PO BID, (Reported) Rosuvastatin Calcium (Rosuvastatin Calcium) 40 Mg Tablet, 40 MG PO QPM, (Reported) DINNERTIME Tamsulosin HCl (Flomax) 0.4 Mg Capsule, 0.4 MG PO DAILY, (Reported) TAKES IN THE AFTERNOON Triamterene/Hydrochlorothiazid (Triamterene-Hctz 37.5-25 mg Tb) 1 Each Tablet, 0.5 TAB PO DAILY, (Reported) Vit C/E/Zn/Coppr/Lutein/Zeaxan (Preservision Areds 2 Softgel) 1 Each Capsule, 1 EACH PO BID, (Reported) Scheduled PRN Polyethylene Glycol 3350 (Polyethylene Glycol 3350) 17 Gm Powd.pack, 17 GRAM PO DAILY PRN for CONSTIPATION, (Reported) Allergies Coded Allergies: Sulfa (Sulfonamide Antibiotics) (Verified Adverse Reaction, Mild, WEAKNESS, 05/22/20) aspirin (Verified Adverse Reaction, Mild, UPSET STOMACH, 05/22/20) NELI YOUNG MD Feb 15, 2021 08:55
--- NOTE | 2021-02-18 10:32 | EEG ---
ELECTROENCEPHALOGRAM DATE: 02/15/2021 DIAGNOSIS: EEG# REFERRING PHYSICIAN: Mily Person M.D. HISTORY: Patient is an 89-year-old man with history of altered mental status and loss of consciousness. This EEG was done to rule out epileptic potential. He is currently taking Eliquis, gabapentin, Singulair, Crestor, Flomax, etc. TECHNICAL DESCRIPTION: This digital EEG was recorded by 21-scalp, ear, and two EKG electrodes and was reviewed in bipolar and referential montages following reformatting in 10-20 international electrode placement system. INTERPRETATION: Patient was noted to be in mostly drowsy state during this EEG. Resting and awake background rhythm consisted of 6-7 Hz theta activity measuring 15-40 microvolts in amplitude, which was symmetric bilaterally. Stage 1 and 2 sleep were reviewed and were symmetric bilaterally. Hyperventilation could not be performed. Photic stimulation remained unremarkable. EKG revealed atrial fibrillation. No focal, lateralizing, or epileptiform abnormalities were seen. No relevant clinical activity was noted. CONCLUSION: This EEG in awake, drowsy states, stage 1 and 2 sleep is abnormal due to presence of mild generalized slowing and disorganization of background consistent with nonspecific diffuse cerebral dysfunction such as seen in dementia and encephalopathy due to multiple potential causes. No epileptiform abnormalities were seen. Clinical correlation is recommended.
== END 2021-02-15 10:25 | disposition home or self-care (01) ==
LOC: M ED 11:32 → EDBD 11:32 → M ED INP 11:33 → ENRESERV 16:12 → M PCU 17:05 → M MSPAV 23:00
PROVIDERS: ADMIT Internal Medicine; ATTEND Internal Medicine
DX: R55 Syncope and collapse (principal); J44.9 Chronic obstructive pulmonary disease, unspecified; I12.9 Hypertensive chronic kidney disease with stage 1 through stage 4 chronic kidney disease, or unspecified chronic kidney disease; E11.9 Type 2 diabetes mellitus without complications; E78.49 Other hyperlipidemia; G47.33 Obstructive sleep apnea (adult) (pediatric); N40.0 Benign prostatic hyperplasia without lower urinary tract symptoms; J32.0 Chronic maxillary sinusitis; G31.9 Degenerative disease of nervous system, unspecified; N18.9 Chronic kidney disease, unspecified; Z79.84 Long term (current) use of oral hypoglycemic drugs; Z79.01 Long term (current) use of anticoagulants; Z79.899 Other long term (current) drug therapy; I48.0 Paroxysmal atrial fibrillation; Z88.2 Allergy status to sulfonamides; Z88.8 Allergy status to other drugs, medicaments and biological substances
CPT/HCPCS: 36415; 70450; 71045; 80048; 80076; 81001; 82550; 82553; 83735; 84439; 84443; 84484; 85025; 85027; 85610; 85730; 87798; 93005; 93041; 94760; 95819; 97116; 97161; 97165; 97530; 97535; 99285; G0378

== ENCOUNTER → 2021-07-03 | Outpatient (CLI) | payer MEDICARE, BC ==
[~2021-07-03] MED LIST changes: +CALC600T60 PO; +D31000TA2 PO
--- NOTE | 2021-07-03 13:27 | REP ---
INDICATION: SYNCOPE AND COLLAPSE COMPARISON: None. TECHNIQUE: Real-time ultrasound evaluation and duplex Doppler interrogation of the extracranial carotid vasculature is performed. FINDINGS: There is mild plaquing and narrowing in both carotid bulbs extending into the internal and external carotid arteries. Luminal narrowing is less than 50%. There is no evidence of hemodynamically significant stenosis of either internal carotid artery. Normal flow velocities are seen. There is normal direction of flow in the left vertebral artery. The right vertebral artery is not visualized. 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 No evidence of hemodynamically significant stenosis. <Electronically signed by Rivera Hardin > 07/03/21 9904
== END ==
LOC: M RAD 12:02
PROVIDERS: ATTEND Physician Assistant Medical
DX: R55 Syncope and collapse (principal)

== ENCOUNTER → 2021-07-25 | Outpatient (REF) | payer MEDICARE ==
[2021-07-25 16:49] LABS: HEMOGLOBIN 9.8 g/dl (13.5-17.5); MEAN CORPUSCULAR HEMOGLOBIN 28.1 pg (27.0-33.0); MEAN CORPUSCULAR HGB CONC 30.6 g/dl (32.0-36.5); MEAN CORPUSCULAR VOLUME 91.7 fl (80.0-96.0); PLATELET COUNT, AUTOMATED 127 10^3/uL (150-450); RED BLOOD COUNT 3.49 10^6/uL (4.30-6.10); WHITE BLOOD COUNT 5.8 10^3/uL (4.0-10.0)
[2021-07-25 17:10] LABS: ALBUMIN 3.4 GM/DL (3.2-5.2); BILIRUBIN,TOTAL 0.5 MG/DL (0.2-1.0); CALCIUM LEVEL 8.8 MG/DL (8.8-10.2); CHOLESTEROL RISK RATIO 2.513 (<5); CREATININE FOR GFR 1.42 MG/DL (0.70-1.30); FREE T4 1.03 NG/DL (0.76-1.46); THYROID STIMULATING HORMONE 2.47 uIU/ML (0.358-3.740); TOTAL PROTEIN 6.6 GM/DL (6.4-8.2)
[2021-07-25 17:25] LABS: HEMOGLOBIN A1c 6.3 %
== END ==
LOC: M SFHCADAM 11:25
PROVIDERS: ATTEND Family Medicine
DX: I48.19 Other persistent atrial fibrillation (principal); N18.2 Chronic kidney disease, stage 2 (mild); E11.29 Type 2 diabetes mellitus with other diabetic kidney complication; E78.2 Mixed hyperlipidemia
CPT/HCPCS: 80053; 80061; 83036; 84439; 84443; 85027; G0463

== ENCOUNTER 2021-08-28 13:40 | Observation (INO) | payer MEDICARE ==
[~2021-08-28] VITALS: Ht 182.9 cm; Wt 88.7 kg
--- OUTSIDE RECORDS SUMMARY | 2021-08-28 15:14 | CCD ---
Author Author Rick Fletcher MD [facility] Organization Rick Fletcher MD [facility] Address [address] [address] Phone Care Team Providers Care Bank Operations Officer Name Role Phone Justine BAXTER, Rick ENG Unavailable [phone] Gaurang BAXTER, [facility] Unavailable Reason for Referral No Reason for Referral Recorded Problems Includes: Active, inactive, and resolved Problems All Visits Onset Date - Time Resolved Date - Time Provider Co ndition Status Pseudophakic - Both Eyes 07/10/2020 - 12:00AM David Stout DO Active Cataract Senile Posterior Subcapsular Polar 04/25/2020 - 12: 00AM 07/10/2020 - 2:54PM David Stout DO Resolved Cataract Senile Cortical Bilateral 12/07/2018 - 12:00AM 07/10/20 20 - 2:53PM David Stout DO Resolved Strabismus Non-paralytic Heterophoria Exophoria 12/07/2018 - 12: 00AM Rick Fletcher MD, FACS Active 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 1 - 12:00AM Rick Fletcher MD, FACS Active Macular Degeneration Nonexudative Right Eye Intermedia te Dry Stage 08/25/2018 - 12:00AM Rick Fletcher MD, FACS Active Pinguecula, bilateral 2015 - 12:00AM Rick Rolle MD, FACS Active Senile ectropion of right lower eyelid 2015 - 12:00AM Rick Sandoval MD, FACS Active Senile ectropion of left lower eyelid 2015 - 12:00AM Rick Fletcher MD, FACS Active Vitreous degeneration, bilateral 2015 - 12:00AM Rick Fletcher MD, FACS Active 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 09/07/2015 - 12:00AM Rick Fletcher MD, FACS Active Note: Unchanged - of the rig ht eye History of Nicotine Dependence 09/07/2015 - 12:00AM Rick Fletcher MD, FACS Active Note: Unchanged Essential Hypertension 09/07/2015 - 12:00AM Rick Cosme MD, FACS Active Note: Unchanged Borderline Glaucoma Ocular Hypertension Both Eyes 09/07/2015 - 2:00AM Rick Fletcher MD, FACS Active Note: Unchanged Macular Degeneration Nonexudative Dry 10/26/2013 - 12:00AM Rick Fletcher MD, FACS Inactive Note: Unchanged - both eyes Cataract Senile Cortical 10/26/2013 - :00AM Rick Fletcher MD, FACS Inactive Note: Unchanged - of the lef t eye Pinguecula 10/26/2013 - 12:00AM Rick Fletcher MD, FACS Inactive Note: Unchanged - both eyes Vitreous Floaters Both Eyes 10/26/2013 - :00AM Rick Fletcher MD, FACS Inactive Note: Unchanged Cataract Senile Cortical Anterior 04/13/2013 - :00AM Rick Fletcher MD, FACS Inactive Note: Unchanged Conjunctivitis Chronic Allergic 04/13/2013 - :00AM Rick Fletcher MD, FACS Active Note: Unchanged Corneal Degeneration Arcus Senilis 04/13/2013 - 12:00AM Rick Fletcher MD, FACS Inactive Note: Unchanged Dermatochalasis Both Eyelids 04/13/2013 - :00AM Rick Fletcher MD, FACS Inactive Note: Unchanged Ectropion Both Eyelids 04/13/2013 - :00AM Rick Cosme MD, FACS Inactive Note: Unchanged Corneal Dystrophy Endothelial Cornea Guttata 04/13/2013 - :00A M Rick Fletcher MD, FACS Active Note: Unchanged - of both co rneas Retinopathy Hypertensive Both Eyes 04/13/2013 - 12:00AM Rick Fletcher MD, FACS Active Note: Unchanged Cataract Senile Nuclear 04/13/2013 - 12:00AM 07/10/2020 - 2:53PM David Stout DO Resolved Note: Unchanged - of both ey es Dry Eye Syndrome Both Eyes 04/13/2013 - 12:00AM Rick Fletcher MD, FACS Active Note: Unchanged Plan of Treatment Pending Tests Order Diagnosis Results Due Ordering Provi naheed Testing Ordered - OCT OCT DISC Ocular hypertension, bilateral 0 05/02/21 David Stout DO Future Appointments Date Time Location Provider 9 Month Follow-Up 01/30/2022 1:00PM [facility] David Stout DO Assessments Includes: Assessments for all patient encounters Findings Encounter Date 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 8 Month Follow-Up with David Stout DO 05/02/2021 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 8 Month Follow-Up with David Stout DO 05/02/2021 Essential hypertension 8 Month Follow-Up with David dye DO 05/02/2021 History of nicotine dependence 8 Month Follow-Up with Raysa Stout DO 05/02/2021 Intermediate dry stage nonexudative macular degenerati on of right eye 8 Month Follow-Up with David Stout DO 05/02/2021 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 8 Month Follow-Up with David mcdonough DO 05/02/2021 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 COLEMAN with David Stout DO 05/17/2020 Intermediate dry stage nonexudative macular degenerati on of right eye CATARACT EVAL - REFERRAL FR DR. COLEMAN with David Stout DO 05/17/2020 Nuclear senile cataract CATARACT EVAL - REFERRAL FR DR. COLEMAN with David Stout DO 05/17/2020 Posterior subcapsular polar senile cataract CATARACT E ALEKSANDRA - REFERRAL FR DR. 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 8 Month Follow-Up with Rick Fletcher MD, FACS 04/25/2020 Essential hypertension 8 Month Follow-Up with Rick Mckeon MD, FACS 04/25/2020 History of nicotine dependence 8 Month Follow-Up with Rick Fletcher MD, FACS 04/25/2020 Intermediate dry stage nonexudative macular degenerati on of right eye 8 Month Follow-Up with Rick Fletcher MD, FACS 04/25/2020 Posterior subcapsular polar senile cataract 8 Month Fo llow-Up with Rikc Fletcher MD, FACS 04/25/2020 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 8 Month Follow-Up with Rick Fletcher MD, FACS 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 7 Month Follow-Up and Testing with Rick Fletcher MD, FACS 04/19/2019 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 7 Month Follow-Up and Testing with Rick Fletcher MD, FACS 04/19/2019 Essential hypertension 7 Month Follow-Up and Testin g with Rick Fletcher MD, FACS 04/19/2019 History of nicotine dependence 7 Month Follow-Up and T esting with Rick Fletcher MD, FACS 04/19/2019 Intermediate dry stage nonexudative macular degenerati on of right eye 7 Month Follow-Up and Testing with Rick Fletcher MD, FACS 04/19/2019 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 7 Month Follow-Up and Testing with Rick Fletcher MD, FACS 04/19/2019 Bilateral cortical senile cataract TRIAGE NON URGENT w ith Rick Fletcher MD, FACS 12/07/2018 Exophoria TRIAGE NON URGENT with Rick agrawal MD, FACS 12/07/2018 Nuclear senile cataract TRIAGE NON URGENT with Rick Keenan MD, FACS 12/07/2018 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 6 Month Follow-Up with Rick Fletcher MD, FACS 08/25/2018 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 6 Month Follow-Up with Rick Fletcher MD, FACS 08/25/2018 Essential (primary) hypertension 6 Month Follow-Up wit h Rick Fletcher MD, FACS 08/25/2018 History of nicotine dependence 6 Month Follow-Up with Rick Fletcher MD, FACS 08/25/2018 Intermediate dry stage nonexudative macular degenerati on of right eye 6 Month Follow-Up with Rick Fletcher MD, FACS 08/25/2018 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 6 Month Follow-Up with Rick Fletcher MD, FACS 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 8 Month Follow-Up with Rick Fletcher MD, FACS 02/26/2018 Early dry stage nonexudative macular degeneration of b oth eyes 8 Month Follow-Up with Rick Fletcher MD, FACS 02/26/2018 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 8 Month Follow-Up with Rick Fletcher MD, FACS Bilateral cortical senile cataract 3 Month Follow-Up w ith Rick Fletcher MD, FACS 07/06/2017 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 3 Month Follow-Up with Rick Fletcher MD, FACS 07/06/2017 Nuclear senile cataract 3 Month Follow-Up with Rick Keenan MD, FACS 07/06/2017 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 6 Month Follow-Up with Rick Fletcher MD, FACS 04/06/2017 Early dry stage nonexudative macular degeneration of b oth eyes 6 Month Follow-Up with Rick Fletcher MD, FACS 04/06/2017 Essential (primary) hypertension 6 Month Follow-Up wit h Rick Fletcher MD, FACS 04/06/2017 Left cortical senile cataract 6 Month Follow-Up with Rosa Fletcher MD, FACS 04/06/2017 Nuclear senile cataract 6 Month Follow-Up with Rick Keenan MD, FACS 04/06/2017 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 6 Month Follow-Up with Rick Fletcher MD, FACS 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 6 Month Follow-Up with Rcik Fletcher MD, FACS 10/13/2016 Early dry stage nonexudative macular degeneration of b oth eyes 6 Month Follow-Up with Rick Fletcher MD, FACS 10/13/2016 Essential (primary) hypertension 6 Month Follow-Up wit h Rick Fletcher MD, FACS 10/13/2016 History of nicotine dependence 6 Month Follow-Up with Rick Fletcher MD, FACS 10/13/2016 Left cortical senile cataract 6 Month Follow-Up with Rosa Fletcher MD, FACS 10/13/2016 Long-term use of oral hypoglycemics 6 Month Follow-Up with Rick Fletcher MD, FACS 10/13/2016 Nuclear senile cataract 6 Month Follow-Up with Rick Keenan MD, FACS 10/13/2016 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 6 Month Follow-Up with Rick Fletcher MD, FACS 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 5 Month Follow-Up with Rick Fletcher MD, FACS 04/04/2016 Dry nonexudative macular degeneration 5 Month Follow-U p with Rick Fletcher MD, FACS 04/04/2016 Essential (primary) hypertension 5 Month Follow-Up wit h Rick Fletcher MD, FACS 04/04/2016 History of nicotine dependence 5 Month Follow-Up with Rick Fletcher MD, FACS 04/04/2016 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 right eye 5 Month Follow-Up with Rick Fletcher MD, FACS 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 V ISUAL FIELD 24-2 with Rick Fletcher MD, FACS 01/23/2016 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 I OP CHECK with Rick Fletcher MD, FACS 10/19/2015 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 9 Month Follow-Up with Rick Fletcher MD, FACS 09/07/2015 Cortical senile cataract 9 Month Follow-Up with Rick Hawkins MD, FACS 09/07/2015 Endothelial corneal dystrophy of both eyes 9 Month Fo llow-Up with Rick Fletcher MD, FACS 09/07/2015 Essential hypertension 9 Month Follow-Up with Rick Mckeon MD, FACS 09/07/2015 History of nicotine dependence 9 Month Follow-Up with Rick Fletcher MD, FACS 09/07/2015 Nonexudative age-related macular degeneration of both eyes 9 Month Follow-Up with Rick Fletcher MD, FACS 09/07/2015 Nuclear senile cataract 9 Month Follow-Up with Rick Keenan MD, FACS 09/07/2015 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 of the right eye 9 Month Follow-Up with Rick Fletcher MD, FACS 09/07/2015 Anterior cortical senile cataract of the left eye 6 M onth Follow-Up with OCT Retina with Rick Fletcher MD, FACS 11/27/2014 Assessment of arcus senilis was observed both eyes 6 Month Follow-Up with OCT Retina with Rick Fletcher MD, FACS 11/27/2014 Chronic allergic conjunctivitis both eyes 6 Month Fol low-Up with OCT Retina with Rick Fletcher MD, FACS 11/27/2014 Dermatochalasis of both eyes 6 Month Follow-Up with OC T Retina with Rick Fletcher MD, FACS 11/27/2014 Dry eye syndrome of both eyes 6 Month Follow-Up with O CT Retina with Rick Fletcher MD, FACS 11/27/2014 Dry nonexudative macular degeneration both eyes 6 Mon th Follow-Up with OCT Retina with Rick Fletcher MD, FACS 11/27/2014 Ectropion of both eyes 6 Month Follow-Up with OCT R etina with Rick Sandoval MD, FACS 11/27/2014 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 6 Month Follow-Up with OCT Retina with Rick Fletcher MD, FACS 11/27/2014 Hypertensive retinopathy of both eyes 6 Month Follow-U p with OCT Retina with Rick Fletcher MD, FACS 11/27/2014 Nuclear senile cataract of both eyes 6 Month Follow-U p with OCT Retina with Rick Fletcher MD, FACS 11/27/2014 Pinguecula both eyes 6 Month Follow-Up with OCT R etina with Rick Fletcher MD, FACS 11/27/2014 Vitreous floaters in both eyes 6 Month Follow-Up with OCT Retina with Rick Fletcher MD, FACS 11/27/2014 Chronic allergic conjunctivitis both eyes 6 Month Fol low-Up with Rick Fletcher MD, FACS 04/26/2014 Cortical senile cataract left eye 6 Month Follow-Up w ith Rick Fletcher MD, FACS 04/26/2014 Dermatochalasis of both eyes upper and lower 6 Month Follow-Up with Rick Fletcher MD, FACS 04/26/2014 Dry eye syndrome of both eyes 6 Month Follow-Up with Rosa Fletcher MD, FACS 04/26/2014 Dry nonexudative macular degeneration both eyes 6 Mon th Follow-Up with Rick Fletcher MD, FACS 04/26/2014 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 6 Month Follow-Up with Rick Fletcher MD, FACS 04/26/2014 Hypertensive retinopathy of both eyes 6 Month Follow-U p with Rick Fletcher MD, FACS 04/26/2014 Nuclear senile cataract both eyes 6 Month Follow-Up w ith Rick Fletcher MD, FACS 04/26/2014 Pinguecula both eyes 6 Month Follow-Up with Rick Sandoval MD, FACS 04/26/2014 Vitreous floaters in both eyes 6 Month Follow-Up with Rick Fletcher MD, FACS 04/26/2014 Cortical senile cataract left eye 6 Month Follow-Up w ith Rick Fletcher MD, FACS 10/26/2013 Dermatochalasis of both eyes 6 Month Follow-Up with Rajan Fletcher MD, FACS 10/26/2013 Dry eye syndrome of both eyes 6 Month Follow-Up with Rosa Fletcher MD, FACS 10/26/2013 Dry nonexudative macular degeneration both eyes 6 Mon th Follow-Up with Rick Fletcher MD, FACS 10/26/2013 Ectropion of both eyes 6 Month Follow-Up with Rick Mckeon MD, FACS 10/26/2013 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 6 Month Follow-Up with Rick Fletcher MD, FACS 10/26/2013 Hypertensive retinopathy of both eyes 6 Month Follow-U p with Rick Fletcher MD, FACS 10/26/2013 Nuclear senile cataract both eyes 6 Month Follow-Up w ith Rick Fletcher MD, FACS 10/26/2013 Pinguecula both eyes 6 Month Follow-Up with Rick Sandoval MD, FACS 10/26/2013 Vitreous floaters in both eyes 6 Month Follow-Up with Rick Fletcher MD, FACS 10/26/2013 Anterior cortical senile cataract 6 Month Follow-Up wi Rick Fletcher MD, FACS 04/13/2013 Chronic allergic conjunctivitis 6 Month Follow-Up with Rick Fletcher MD, FACS 04/13/2013 Dermatochalasis of both eyes 6 Month Follow-Up with Rajan Fletcher MD, FACS 04/13/2013 Dry eye syndrome of both eyes 6 Month Follow-Up with Rosa Fletcher MD, FACS 04/13/2013 Ectropion of both eyes 6 Month Follow-Up with Rick Mckeon MD, FACS 04/13/2013 Endothelial corneal dystrophy cornea guttata 6 Month F ollow-Up with Rick Fletcher MD, FACS 04/13/2013 Hypertensive retinopathy of both eyes 6 Month Follow-U p with Rick Fletcher MD, FACS 04/13/2013 Macular degeneration in both eyes 6 Month Follow-Up wi Rick Fletcher MD, FACS 04/13/2013 Nonexudative macular degeneration 6 Month Follow-Up wi Rick Fletcher MD, FACS 04/13/2013 Nuclear senile cataract 6 Month Follow-Up with Rick Keenan MD, FACS 04/13/2013 Vitreous floaters in both eyes 6 Month Follow-Up with Rick Fletcher MD, FACS 04/13/2013 Instructions Instructions not supported for this document typeNo Instructions Recorded Medical Equipment - Implanted Devices Includes: Current and historical DevicesNo Medical Equipment Recorded Medications Includes: Current and historical Medications Current Medications (continue as prescribed) Eliquis 2.5 MG Oral Tablet 06/18/2020 Provider: Diagnosis: ICaps MV OR TABS 04/13/2013 Provider: Diagnosis: Multivitamins OR TABS 04/13/2013 Provider: Diagnosis: CVS Vitamin C 500 MG OR TABS 04/13/2013 Provider: Diagnosis: Systane 0.4-0.3% OP SOLN 04/13/2013 Provider: Diagnosis: Omeprazole 20 MG OR CPDR 04/13/2013 Provider: Diagnosis: Potassium Chloride 10 MEQ/50ML IV SOLN 04/13/2013 P rovider: Diagnosis: Calcium 600+D 600-200 MG-UNIT OR TABS 04/13/2013 Pr ovider: Diagnosis: ZyrTEC Allergy 10 MG OR TABS 04/13/2013 Provider: Diagnosis: Atrovent 0.03% NA SOLN 04/13/2013 Provider: Diagnosis: One puff in each nostril BID Past Medications on file Zylet 0.5-0.3% Ophthalmic Suspension 07/10/2020 - 07/26/2020 Provider: David Stout DO Diagnosis: Presence of intraocu lar lens one drop two times a day in the right eye BromSite 0.075% Ophthalmic Solution 06/06/2020 - 07/26/2020 Provider: David Stout DO Diagnosis: Age-related nuclear cataract, left eye Three days prior to surgery start one dr op two times a day in the left eye, RUN CARD Besivance 0.6% Ophthalmic Suspension 06/06/2020 - 07/10/2020 Provider: David Stout DO Diagnosis: Age-related nuclear cataract, left eye Three days prior to surgery start one drop three times a day in the left eye Inveltys 1% Ophthalmic Suspension 06/06/2020 - 07/10/2020 Pr ovider: David Stout DO Diagnosis: Age-related nuclear cataract, left eye Day of surgery remove patch start one dr op two times a day in the left eye, RUN CARD Inveltys 1% Ophthalmic Suspension 05/30/2020 - 06/06/2020 Pr ovider: David Stout DO Diagnosis: Age-related nuclear cataract, left eye Day of surgery remove patch start one dr op two times a day in the left eye, RUN CARD BromSite 0.075% Ophthalmic Solution 05/30/2020 - 06/06/2020 Provider: David Stout DO Diagnosis: Age-related nuclear cataract, left eye Three days prior to surgery start one dr op two times a day in the left eye, RUN CARD Besivance 0.6% Ophthalmic Suspension 05/30/2020 - 06/06/2020 Provider: David Stout DO Diagnosis: Age-related nuclear cataract, left eye Three days prior to surgery start one drop three times a day in the left eye Lastacaft 0.25% OP SOLN 04/13/2013 - 06/12/2013 Provider: Rick Fletcher MD, [facility] Diagnosis: Macular Degeneration NOS Terazosin HCl 10 MG OR CAPS 04/13/2013 - 11/27/2014 Provider : Diagnosis: Drisdol 1.25 MG ([id number] [place]) OR CAPS 04/13/2013 - 10/26/2013 Kvng hale: Diagnosis: 1 weekly Lisinopril 20 MG OR TABS 04/13/2013 - 06/18/2020 Provider: Diagnosis: Medications Administered Includes: Administered Medications in patient's chartNo Administered Medications Recorded Vital Signs Includes: Vital Signs from 07/02/2020 through 07/02/2021No Vital Signs Recorded For Specified Dates Results Includes: Results from 07/02/2020 through 07/02/2021No Results Recorded For Specified Dates History of Present Illness History of Present Illness not supported for this document typeNo History of Present Illness Recorded Social History Description Last Updated Tobacco non-user 05/02/2021 No tobacco use 05/30/2020 Not using drugs 05/30/2020 Smoking status : Former smoker 05/30/2020 Alcohol use slightly 09/07/2015 Previous smoking history 10/26/2013 Alcohol 04/13/2013 Procedures and Surgical History Includes: Procedures from 07/02/2020 through 07/02/2021 Procedures Code Diagnosis Performing Provider Service Location Service Date Intermediate Eye Exam Established Patient [id number] Type 2 diab with mild nonp rtnop without mclr edema, r eye, Nexdtve age-related mclr degn, right eye, intermed dry stage, Essential (primary) hypertension, Personal history of nicotine dependence David Vera MD [facility] 05/02/2021 Surgical History Last Updated History of extracapsular cataract extrac tion PCIOL OS by Dr. Stout 06/11/2020 ~PCIOL OD by Dr. Stout 06/25/2020 07/10/2020 No surgical / procedural history 05/30/2020 Medical History Includes: Medical History in patient's chart Description Last Updated History of diabetes mellitus Type 2 Dx: 2018 A1c: tested last week so unsure FBS: does not check 06/18/2020 Recent change in medical history Cataract Sx OS by Dr Cristina Stout 06/11/2020 06/18/2020 History of the retina was abnormal 04/25/2020 0 Essential hypertension 10/19/2015 History of fundoscopic exam through dilated pupils was performed 11/27/2014 2015 Currently wearing eyeglasses for reading 02/15/2015 Reported medical history : Spot on Lung, Sleep Apnea with CPAP, Numbness in feet, Reflux, Allergies 02/15/2015 Not wearing contact lenses 04/13/2013 History of hypertension 04/13/2013 Family History Includes: Family History in patient's chart Description Last Updated Daughter's history of diabetes mellitus 05/30/2020 Daughter's history of thyroid disorder 05/30/2020 Fraternal history of heart disease 05/30/2020 Maternal history of heart disease 05/30/2020 Maternal history of thyroid disorder 05/30/2020 Paternal history of diabetes mellitus 05/30/2020 Family history of heart disease 11/27/2014 Family history of thyroid disorder 11/27/2014 Review of Systems Review of Systems not supported for this document typeNo Review of Systems Recorded Mental Status Mental Status not supported for this document type Description Oriented to time, place, and person Functional Status Functional Status not supported for this document typeNo Functional Status Recorded Physical Exam Physical Exam not supported for this document typeNo Physical Exam Recorded Immunizations Includes: Immunizations in patient's chartNo Immunizations Recorded Allergies Includes: Active, inactive, and resolved AllergiesNo Known Allergies Encounters Includes: Encounters from 07/02/2020 through 07/02/2021 Encounter Provider Location Date Check-In Time Check-Out Time D iagnosis 8 Month Follow-Up David Vera MD 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 07/26/2020 12:00PM 12:35PM Pseudophakic - Both Eyes 1 Week Post OP David Vera MD [facility] 07/10/20 20 2:22PM 3:58PM Pseudophakic - Both Eyes Insurance Includes: Active Insurance Policies Plan Name Member ID Group # Subscriber Relationship Effective Da hilda 1 - Medicare Part B [facility] ([facility]) [id number] Chirag Ulrich Self 2 - [employer] [id number] Chirag Ulrich Self 11/16/2019 - Unknown Advance Directives Includes: Current Advance DirectivesNo Advance Directives Recorded Health Concerns Includes: Active Health ConcernsNo Active Health Concerns Recorded Goals Includes: Active GoalsNo Active Goals Recorded Interventions Includes: Interventions for active GoalsNo Interventions Recorded Evaluations & Outcomes Includes: Evaluations & Outcomes for active GoalsNo Outcomes Recorded
--- OUTSIDE RECORDS SUMMARY | 2021-08-28 15:14 | CCD ---
Author Author Rick Fletcher MD [facility] Organization Rick Fletcher MD [facility] Address [address] [address] Phone Care Team Providers Care Direct Chill Casting Operator Name Role Phone Justine BAXTER, Rick ENG Unavailable [phone] Gaurang BAXTER, [facility] Unavailable Reason for Referral No Reason for [...] senile cataract 8 Month Fo llow-Up with Rick Fletcher MD, FACS 04/25/2020 Type 2 diabetes [...] Follow-Up with Rick Fletcher MD, FACS 10/13/2016 Early dry stage [...] 04/13/2013 - 06/12/2013 Provider: Rick Fletcher MD, [facility] Diagnosis: Macular Degeneration NOS Terazosin HCl 10 MG OR CAPS 04/13/2013 - 11/27/2014 Provider : Diagnosis: Drisdol 1.25 MG (66565 UT) OR CAPS 04/13/2013 - 10/26/2013 Kvng [...] Updated Tobacco non-user 05/02/2021 No tobacco use 05/17/2020 Not using drugs 05/17/2020 Smoking status : Former smoker 05/17/2020 Alcohol use slightly 09/07/2015 Previous smoking history 10/26/2013 Alcohol 04/13/2013 Procedures and Surgical History Includes: Procedures from 07/02/2020 through 07/02/2021 Procedures Code Diagnosis Performing Provider Service Location Service Date Intermediate Eye Exam Established Patient 14[address] 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 Stout 06/11/2020 ~PCIOL OD by Dr. Stout 06/25/2020 07/10/2020 No surgical / procedural history 05/17/2020 Medical History Includes: Medical History in patient's [...] Last Updated Daughter's history of diabetes mellitus 05/17/2020 Daughter's history of thyroid disorder 05/17/2020 Fraternal history of heart disease 05/17/2020 Maternal history of heart disease 05/17/2020 Maternal history of thyroid disorder 05/17/2020 Paternal history of diabetes mellitus 05/17/2020 Family history of heart disease 11/27/2014 Family [...] iagnosis 8 Month Follow-Up David Vera MD [facility] 12:09PM 1:30PM Macular Degeneration Nonexud ative Right Eye Intermediate Dry Stage, 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, Essential Hypertension, History of Nicotine Dependence, Borderline Glaucoma Ocular Hypertension Both Eyes, Pseudophakic - Both Eyes, 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 3 - 4 WK Post CAT SX David Vera MD [facility] 07/26/2020 12:00PM 12:35PM Pseudophakic - Both Eyes 1 Week Post OP David Vera MD [facility] 07/10/20 20 2:22PM 3:58PM Pseudophakic - Both Eyes Insurance Includes: Active Insurance Policies Plan Name Member ID Group # Subscriber Relationship Effective Da hilda 1 - Medicare Part B [facility] ([facility]) [id number] Chirag Ulrich Self 2 - [employer] BL[employer] [id number] Chirag Ulrich Self 11/16/2019 - Unknown Advance Directives Includes: Current Advance DirectivesNo Advance Directives Recorded Health Concerns Includes: Active Health ConcernsNo Active Health Concerns Recorded Goals Includes: Active GoalsNo Active Goals Recorded Interventions Includes: Interventions for active GoalsNo Interventions Recorded Evaluations & Outcomes Includes: Evaluations & Outcomes for active GoalsNo Outcomes Recorded
--- OUTSIDE RECORDS SUMMARY | 2021-08-28 15:14 | CCD ---
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 A ctive confirmed 749490474 Problem Mixed hyperlipidemia E78.2 Active confirmed 752466511 Problem Vitamin D deficiency, unspecified E55.9 Active con firmed 92526112 Problem 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 Active confirmed 57311773 Problem Hypertensive heart and chron ic kidney disease without heart failure, with stage 1 through stage 4 chronic kidney disease, or unspecified chronic kidney disease I13.10 Active confirmed 31029780 Problem Obstructive sleep apnea (adult) (pediatric) G47.33 Active confirmed 60530970 Problem Persistent atrial fibrillation I48.19 Active confir med 115671840 Problem Abnormal results of pulmonary function studies R94 .2 Active confirmed 362503554 Problem 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 Active confirmed 198668026767622 Problem Medicare annual wellness visit, subsequent Z00.00 Active confirmed 804208190 Problem 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 Active confirmed 045689957 Problem Proteinuria, unspecified R80.9 Active confirmed 08544518 ALLERGIES Allergen (clinical drug ingredient) Drug/Non Drug Allergy do cumented on EMR Reaction Allergy Type Onset Date Status Mold Nausea/Vomiting Non Drug Allergy Act sommer Sulfa (for allergy use only) UPSET STOMACH Drug Allergy Active aspirin Aspirin([facility] Code:[address]-16) UPSET STOMACH Drug Allergy Active ENCOUNTERS from 1931 to 2021-07-30 Encounter Location Date Provider Diagnosis [facility] [address] [place] [address] Jul, Que Merlos Persistent atrial fibrillation I48.19 ; Hypertensive heart disease without heart failure I11.9 ; Type 2 diabetes mellitus with other diabetic kidney complication E11.29 ; Chronic kidney disease, 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 ; 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 and Mixed hyperlipidemia E78.2 IMMUNIZATIONS Vaccine Route Administration Date Status Influenza 18 yrs & older Flublok IM Intramuscular Oct 12, 2018 Administered Zoster 50mcg/0.5mL Shingrix Unknown Jul 17, 2019 Admi nistered Influenza (High Dose 65 & up) IM Intramuscular Sep 10, 2017 A dministered Influenza (High Dose 65 & up) IM Intramuscular Oct 07, 2016 A dministered Influenza (High Dose 65 & up) IM Intramuscular Sep 06, 2015 A dministered Pneumococcal Adult 0.5mL Pneumovax 23 Unknown April 16 012 Administered Influenza 18 yrs & older Flublok IM Intramuscular Sep 27, 2019 Administered Pneumococcal Adult 0.5mL Pneumovax 23 Unknown Sep 11 98 Administered Influenza 18 yrs & older Flublok IM Intramuscular Aug 21, 2020 Administered Pneumococcal 0.5mL Prevnar 13 IM Intramuscular Oct 26, 2014 A dministered Influenza 6mo & up Fluzone IM Intramuscular Aug 02, 2014 Admi nistered SOCIAL HISTORY Tobacco Use: Social History Observation Description Date Details (start date - stop date) Former Smoker Sex Assigned At : Social History Observation Description Sex Assigned At Unknown Education: Question Answer Notes Level of Education: Not Finished College Audit Question Answer Notes Total Score: 2 Interpretation: Alcohol Education Drug and Alcohol Question Answer Notes Total Score: 0 Interpretation: No problems reported Alcohol Screening: Question Answer Notes Did you have a drink containing alcohol in the past year? Ye s Points 2 Interpretation Negative How often did you have six or more drinks on one occas ion in the past year? Never (0 points) How many drinks did you have on a typica l day when you were drinking in the past year? 1 or 2 (0 points) How often did you have a drink containing alcohol in t he past year? Two to four times a month (2 points) BMI Care Goal Follow-Up Question Answer Notes Above Normal BMI Follow-Up Weight monitoring Tobacco Use: Question Answer Notes Are you a: former smoker How long has it been since you last smoked? > 10 years REASON FOR REFERRAL No Information VITAL SIGNS Weight 196 lbs Jul, Height 71 in Jul, BMI 27.33 kg/m2 Jul, Heart Rate 81 /min Jul, Respiratory Rate 18 /min Jul, Temperature 97.0 degrees Fahrenheit Jul, Oximetry 98 Jul, Blood pressure systolic 132 mm Hg Jul, Blood pressure diastolic 70 mm Hg Jul, MEDICATIONS Medication SIG (Take, Route, Frequency, Duration) Notes Start Da te End Date Status ICaps OTC 1 cap(s) Orally daily Act sommer metFORMIN HCl 500 MG 1 tablet with meals Orally Once a day Active Triamterene-HCTZ 37.5-25 MG 1/2 tablet in the morning Orally Once a day for 30 day(s) May, Not-Taking traMADol HCl 50 MG 1 tablet as needed Orally twice daily as need ed for 1 days Jan, Unknown Calcium 600 + D OTC 1 tablet daily A ctive Flomax 0.4 MG 1 capsule 30 minutes after the same meal each da y Orally qhs Aug, Active Montelukast Sodium 10 MG 1 tablet Orally Once a day for 30 day(s) Active Rosuvastatin Calcium 40 MG 1 tablet Orally Once a day for 30 day(s) Active Potassium Chloride 10 10 meq 2 tab(s) orally twice daily for 90 day(s ) Active Vitamin C 500 mg 1 tablet Orally Once a day Active CPAP Machine ` ` obstructive sleep apnea every night Active Multivitamins OTC 1 tab(s) Orally daily Active Oxygen 2 liters NC ` nasal cannula 02 sats on r oom air with activity 77% after rest 93% needs to use portable 02 with activity diagnosis code 799.02 Nov, Active Omeprazole 20 mg 1 tablet Orally Once a day Active Gabapentin 300 MG 3 capsule Orally before bedtime Sep, Active Eliquis 2.5 MG as directed Orally bid Active MiraLax ` 1 tablespoon Orally Once a day Active PROCEDURES No Information RESULTS Component Value Reference Range CBC - Complete Blood Count Reviewed date:07/25/2021 17:50:10 Interpretation: Performing Lab:[facility] LABORATORY [address] [facility] [address] , ,[place] [address] WHITE BLOOD COUNT 5.8 4.0-10.0 RED BLOOD COUNT 3.49 4.30-6.10 HEMOGLOBIN 9.8 13.5-17.5 HEMATOCRIT 32.0 42.0-52.0 MEAN CORPUSCULAR VOLUME 91.7 80.0-96.0 MEAN CORPUSCULAR HEMOGLOBIN 28.1 27.0-33.0 MEAN CORPUSCULAR HGB CONC 30.6 32.0-36.5 RED CELL DISTRIBUTION WIDTH 15.2 11.5-14.5 PLATELET COUNT, AUTOMATED 127 150-450 Comprehensive Metabolic Profile (CMP) Reviewed date:07/25/2021 17:50:10 Interpretation: Performing Lab:[facility] LABORATORY [address] [facility] [address] , ,[facility] GLUCOSE, FASTING 125 70-100 BLOOD UREA NITROGEN 29 7-18 CREATININE FOR GFR 1.42 0.70-1.30 GLOMERULAR FILTRATION RATE 50.0 >35 SODIUM LEVEL 142 136-145 POTASSIUM SERUM 4.0 3.5-5.1 CHLORIDE LEVEL 109 98-107 CARBON DIOXIDE LEVEL 26 21-32 CALCIUM LEVEL 8.8 8.8-10.2 AST/SGOT 27 7-37 ALT/SGPT 31 12-78 ALKALINE PHOSPHATASE 106 45-117 BILIRUBIN,TOTAL 0.5 0.2-1.0 TOTAL PROTEIN 6.6 6.4-8.2 ALBUMIN 3.4 3.2-5.2 ALBUMIN/GLOBULIN RATIO 1.1 FREE T4 & TSH PANEL Reviewed date:07/25/2021 17:50:10 Interpretation: Performing Lab:[facility] LABORATORY [address] [facility] [address] , ,[facility] THYROID STIMULATING HORMONE 2.470 0.358-3.740 FREE T4 1.03 0.76-1.46 HEMOGLOBIN A1c Reviewed date:07/25/2021 17:50:10 Interpretation: Performing Lab:[facility], [facility] LABORATORY [address] [facility] [address] , ,[facility] HEMOGLOBIN A1c 6.3 ESTIMATED AVERAGE GLUCOSE 134 60-110 LIPID PANEL (CARDIAC RISK) Reviewed date:07/25/2021 17:50:10 Interpretation: Performing Lab:[facility] LABORATORY [address] [facility] [address] , ,[place] [address] TRIGLYCERIDES LEVEL 182 <150 CHOLESTEROL LEVEL 93 <200 HDL CHOLESTEROL 37 >40 LDL CHOLESTEROL 20 <100 NON-HDL-C 56 CHOLESTEROL RISK RATIO 2.513 <5 REASON FOR VISIT 4 month MEDICAL (GENERAL) HISTORY Type Description Date Medical History (previous PMH deleted by [facility]) Medical History Type 2 DM--dx 08/30- DM PN and elev BIANCA Medical History HTN Medical History ALISA--compliant with CPAP Medical History BPH Medical History Restrictive lung disease PFT s 02/17; wears supplemental oxygen at bedtime Medical History hyperlipidemia Medical History left Pepper's Palsy ; 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 Medical History CKD 3-- GFR ~ 45 Medical History Vit D defic Medical History adenomatous colon polyp 01/16, 07/21 Medical History nl NST, echo 2003, EF 55%; e cho 11/28: LAE 51 mm, EF 55%; 07/29 echo essentially unchanged Medical History Fx foot ( right) in a boot for 3 weeks Medical History echo, Holter 08/29: both nl, EF 65-70%, LVH on echo Medical History Echo 05/23/2020 - LV size norm al EF 60-65%, LA 4.7 cm, ,ildly dilated aortic root, mildly calcified AV with normal leaflet excusion, Normal mitral valve and tricuspid valve Medical History Atrial Fibrillation - New On set 05/2020 (see hospital records); Holter 06/04: controlled at fib, no other abnl exc freq PVCs Surgical History TURP dr. chatman 2007 Surgical History colonoscopies--tubular adeno mas 2002; nl 2004 (hyperplastic polyps only) 2000,2002,2004 Surgical History CYSTOSCOPY 02/03/2018 Hospitalization History surgery related Hospitalization History dehydration,hypotension 05/2020 Goals Section No Information Health Concerns No Information MEDICAL EQUIPMENT No Information MENTAL STATUS No Information FUNCTIONAL STATUS No Information ASSESSMENTS Encounter Date Diagnosis Assessment Notes Treatment Notes Treatm ent Clinical Notes Jul, Persistent atrial fibrillation (ICD-10 - I48.19) has appt [facility] pending, hope to get records Jul, Hypertensive heart disease without heart failure (ICD-10 - I11.9) Per JNC 8 guidelines, goal BP < 140/90 (150/90 if age >60), is meeting goal on current regimen. Advised heart-healthy diet, sodium restriction Jul, Type 2 diabetes mellitus wit h other diabetic kidney complication (ICD-10 - E11.29) under excellent control with current regimen, diabetic control adequate with patient-centered goals as discussed with pt. Goal Hg bA1c 6.x is appropriate for this pt. MTFM dose reduced by [facility]; last HgbA1c 6%, this is reasonable Jul, Chronic kidney disease, stage 2 (mild) (ICD-10 - N18.2) avoid NSAIDs, other nephrotoxic drugs; monitor with periodic lab work; adjust meds for GFR Jul, Peripheral sensory neuropath y due to type 2 diabetes mellitus (ICD- 10 - E11.42) Jul, Mixed hyperlipidemia (ICD-10 - E78.2) PLAN OF TREATMENT Treatment Notes Assessment Notes Clinical Notes Persistent atrial fibrillation has appt [facility] pending, hope to get records Hypertensive heart disease without heart failure Per JNC 8 guidelines, goal BP < 140/90 (150/90 if age >60), is meeting goal on current regimen. 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 Goal Hg bA1c 6.x is appropriate for this pt.MTFM dose reduced by [facility]; last HgbA1c 6%, this is reasonable Chronic kidney disease, stage 2 (mild) a void NSAIDs, other nephrotoxic drugs; monitor with periodic lab work; adjust meds for GFR Next Appt Details 3 Months Reason: Provider Name:Que Merlos, 2021-10 03:15:00 PM, [address], , [place], [address], Insurance Providers Payer Name Payer Address Payer Phone Insured Name Patient Relati onship to Insured Coverage Start Date Coverage End Date [employer] [place] CLAIM DIV [address] [facility] [id number] SHAHEED MUNIZ MEDICARE Part A and B [address] [facility] [address] SHAHEED MUNIZ self
--- OUTSIDE RECORDS SUMMARY | 2021-08-28 15:14 | CCD | Continuity of Care Document ---
Author Author [facility]irag [facility] P[facility] Organization Unknown Address [address] [place] [address] Phone [phone] Care Team Providers Care Biofuels Plant Construction Worker Name Role Phone Que Merlos M.D. AUTM [phone] Problems Active Problems Provider Date Syncope Lucy Gleason M.D. Onset: 05/06/2021 Social History Type Date Description Comments Sex Unknown Allergies, Adverse Reactions, Alerts Description No Information Available Medications Description No Information Available Immunizations Description No Information Available Vital Signs Date Vital Result Comment 06/17/2021 5:44am BP Systolic 130 mmHg BP Diastolic 80 mmHg Heart Rate 80 /min Respiratory Rate 20 /min Results Description No Information Available Procedures Date Code Description Status 06/17/2021 27092 Office/Outpatient Established Mo d MDM 30-39 Min Completed 06/14/2021 80234 EEG Complete STD Phys/QHP>36 HR< 60 HR W/O Video Completed 06/07/2021 41100 Sympathetic Skin Responses Compl eted 06/07/2021 95051 Test Autonomic Nervous System, C ardiovagal Innervation Completed 05/06/2021 85937 Office/Outpatient New Moderate M DM 45-59 Minutes Completed Medical Devices Description No Information Available Encounters Type Date Location Provider Dx Diagnosis Office Visit 06/17/2021 2:00p [place] Jazmin delgado P.A.-C. R55 Syncope and collapse I48.0 Paroxysmal atrial fibrillati on I95.1 Orthostatic hypotension Office Visit 05/06/2021 2:00p [place] Lucy Gleason M.D. R55 Syncope and collapse R41.82 Altered mental status, unspe cified S06.0x0A Concussion without loss of c onsciousness, initial encounter Assessments Date Code Description Provider 06/17/2021 R55 Syncope and collapse Jazmin lopez P.A.-C. 06/17/2021 I48.0 Paroxysmal atrial fibrillation L rebecca Ramon VelaC. 06/17/2021 I95.1 Orthostatic hypotension Jazmin Culp P.A.-C. 06/14/2021 R55 Syncope and collapse EEG 06/07/2021 R55 Syncope and collapse Lucy shepherd M.D. 06/07/2021 R55 Syncope and collapse Ans/VS 05/06/2021 R55 Syncope and collapse Lucy shepherd M.D. 05/06/2021 R41.82 Altered mental status, unspecifi ed Lucy Gleason M.D. 05/06/2021 S06.0x0A Concussion without loss of consc iousness, initial encounter Lucy Gleason M.D. Plan of Treatment Future Appointment(s):* 08/26/2021 11:15 am - Jazmin Culp P.A.-C. at Main office [facility] 06/17/2021 - Jazmin Culp P.A.-C.* R55 Syncope and collapse* Comments:* Ambulatory EEG is pending. He declines brain imaging stating that he does not tolerate it. He agrees to a carotid u/s. * I48.0 Paroxysmal atrial fibrillation* Comments:* Follow up with cardiology. ANS report forwarded to Dr Figueroa. * I95.1 Orthostatic hypotension* Comments:* ANS report forwarded to Dr Figueroa. * Follow up:* 8-10 weeks Functional Status Description No Information Available Mental Status Description No Information Available Referrals Description No Information Available
--- OUTSIDE RECORDS SUMMARY | 2021-08-28 15:14 | CCD ---
Author Author Rick Fletcher MD [facility] Organization Rick Fletcher MD [facility] Address [address] [address] Phone Care Team Providers Care Newspaper Deliverer Name Role Phone Justine BAXTER, Rick ENG Unavailable [phone] Gaurang BAXTER, [facility] Unavailable Reason for Referral No [...] Suspension 05/30/2020 - 06/06/2020 Pr ovider: David tSout DO Diagnosis: Age-related nuclear cataract, left eye [...] 04/13/2013 - 06/12/2013 Provider: Rick Fletcher MD, [facility] Diagnosis: Macular Degeneration NOS Terazosin HCl 10 MG OR CAPS 04/13/2013 - 11/27/2014 Provider : Diagnosis: Drisdol 1.25 MG (05871 UT) OR CAPS 04/13/2013 - 10/26/2013 Kvng [...] Updated Tobacco non-user 05/02/2021 No tobacco use 06/18/2020 Not using drugs 06/18/2020 Smoking status : Former smoker 06/18/2020 Alcohol use slightly 09/07/2015 Previous smoking history 10/26/2013 Alcohol 04/13/2013 Procedures and Surgical History Includes: Procedures from 07/02/2020 through 07/02/2021 Procedures Code Diagnosis Performing Provider Service Location Service Date Intermediate Eye Exam Established Patient [address] 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 Stout 06/11/2020 ~PCIOL OD by Dr. Stout 06/25/2020 07/10/2020 No surgical / procedural history 06/18/2020 Medical History Includes: Medical History in patient's chart Description Last Updated History of the retina was abnormal 05/17/2020 0 History of diabetes mellitus Type 2 Dx: 2018 A1c: tested last week so unsure FBS: does not check 06/18/2020 Recent change in medical history Cataract Sx OS by Dr Cristina Stout 06/11/2020 06/18/2020 Essential hypertension 10/19/2015 History of fundoscopic exam through dilated pupils was performed 11/27/2014 2015 Currently wearing eyeglasses for reading 02/15/2015 Reported medical history : Spot on Lung, Sleep Apnea with CPAP, Numbness in feet, Reflux, Allergies 02/15/2015 Not wearing contact lenses 04/13/2013 History of hypertension 04/13/2013 Family History Includes: Family History in patient's chart Description Last Updated Daughter's history of diabetes mellitus 06/18/2020 Daughter's history of thyroid disorder 06/18/2020 Fraternal history of heart disease 06/18/2020 Maternal history of heart disease 06/18/2020 Maternal history of thyroid disorder 06/18/2020 Paternal history of diabetes mellitus 06/18/2020 Family history of heart disease 11/27/2014 Family [...] iagnosis 8 Month Follow-Up David Vera MD [facility] 12:09PM 1:30PM Macular Degeneration Nonexud ative Right Eye Intermediate Dry Stage, 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 ([facility]) [id number] Chirag Ulrich Self 2 - [employer] BLUE [id number] Chirag Ulrich Self 11/16/2019 - Unknown Advance Directives Includes: Current Advance DirectivesNo Advance Directives Recorded Health Concerns Includes: Active Health ConcernsNo Active Health Concerns Recorded Goals Includes: Active GoalsNo Active Goals Recorded Interventions Includes: Interventions for active GoalsNo Interventions Recorded Evaluations & Outcomes Includes: Evaluations & Outcomes for active GoalsNo Outcomes Recorded
--- OUTSIDE RECORDS SUMMARY | 2021-08-28 15:14 | CCD ---
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 A ctive confirmed 494871189 Problem Mixed hyperlipidemia E78.2 Active confirmed 779215016 Problem Vitamin D deficiency, unspecified E55.9 Active con firmed 66323865 Problem 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 Active confirmed 61726219 Problem Hypertensive heart and chron ic kidney disease without heart failure, with stage 1 through stage 4 chronic kidney disease, or unspecified chronic kidney disease I13.10 Active confirmed 91045919 Problem Obstructive sleep apnea (adult) (pediatric) G47.33 Active confirmed 03867123 Problem Persistent atrial fibrillation I48.19 Active confir med 683113203 Problem Abnormal results of pulmonary function studies R94 .2 Active confirmed 251406935 Problem 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 Active confirmed 584128155487064 Problem Medicare annual wellness visit, subsequent Z00.00 Active confirmed 404471381 Problem 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 Active confirmed 017450345 Problem Proteinuria, unspecified R80.9 Active confirmed 82793941 ALLERGIES Allergen (clinical drug ingredient) Drug/Non Drug Allergy do cumented on EMR Reaction Allergy Type Onset Date Status Mold Nausea/Vomiting Non Drug Allergy Act sommer Sulfa (for allergy use only) UPSET STOMACH Drug Allergy Active aspirin Aspirin([facility] [place]:[address]-37) UPSET STOMACH Drug Allergy Active ENCOUNTERS from 1930 to 2021-08-15 Encounter Location Date Provider Diagnosis [facility] [address] [place] [address] Jul, Que Merlos IMMUNIZATIONS Vaccine Route Administration Date Status Influenza 18 yrs & older Flublok IM Intramuscular Oct 12, 2018 Administered Influenza (High Dose 65 & up) IM Intramuscular Sep 10, 2017 A dministered Influenza (High Dose 65 & up) IM Intramuscular Oct 07, 2016 A dministered Zoster 50mcg/0.5mL Shingrix Unknown Jul 17, 2019 [...] REASON FOR REFERRAL No Information VITAL SIGNS No information MEDICATIONS Medication SIG (Take, Route, Frequency, Duration) [...] a day Active PROCEDURES No Information RESULTS No Results REASON FOR VISIT Another Episode MEDICAL (GENERAL) HISTORY Type Description Date Medical [...] No Information FUNCTIONAL STATUS No Information ASSESSMENTS No Information PLAN OF TREATMENT Next Appt Details Provider Name:Que Merlos, 2021-10 03:15:00 PM, [address], , [place], [address], Insurance Providers Payer Name Payer Address Payer Phone Insured Name Patient Relati onship to Insured Coverage Start Date Coverage End Date [employer] [facility] CLAIM DIV [address] [facility] [phone] SHAHEED MUNIZ MEDICARE Part A and B [address] [facility] [phone] SHAHEED MUNIZ
--- OUTSIDE RECORDS SUMMARY | 2021-08-28 15:14 | CCD | Continuity of Care Document ---
Author Author Chirag GRECO P.A.-C. Organization Unknown Address [address] [place] [address] Phone [phone] Care Team Providers Care Ballet Soloist Name Role Phone Que Merlos M.D. AUTM [phone] Problems Active Problems Provider Date Syncope Lucy Gleason M.D. Onset: 05/06/2021 Social History Type Date Description Comments Sex Unknown Allergies, Adverse Reactions, Alerts Description No Information Available Medications Description No Information Available Immunizations Description No Information Available Vital Signs Description No Information Available Results Description No Information Available Procedures Date Code Description Status 06/17/2021 40745 Office/Outpatient Established Mo d MDM 30-39 Min Completed 06/14/2021 31259 EEG Complete STD Phys/QHP>36 HR< 60 HR W/O Video Completed 06/07/2021 35873 Sympathetic Skin Responses Compl eted 06/07/2021 06102 Test Autonomic Nervous System, C ardiovagal Innervation Completed 05/06/2021 53790 Office/Outpatient New Moderate M DM 45-59 Minutes Completed Medical Devices Description No Information Available Encounters Type Date Location Provider Dx Diagnosis Office Visit 06/17/2021 2:00p Main office - [place] Jazmin delgado P.A.-C. R55 Syncope and collapse Office Visit 05/06/2021 2:00p Main office - [place] Lucy Gleason M.D. R55 Syncope and collapse R41.82 Altered mental status, unspe cified S06.0x0A Concussion without loss of c onsciousness, initial encounter Assessments Date Code Description Provider 06/17/2021 R55 Syncope and collapse Jazmin lopez P.A.-C. 06/14/2021 R55 Syncope and collapse EEG 06/07/2021 R55 Syncope and collapse Lucy shepherd M.D. 06/07/2021 R55 Syncope and collapse Ans/VS 05/06/2021 R55 Syncope and collapse Lucy shepherd M.D. 05/06/2021 R41.82 Altered mental status, unspecifi ed Lucy Gleason M.D. 05/06/2021 S06.0x0A Concussion without loss of consc iousness, initial encounter Lucy Gleason M.D. Plan of Treatment No Information Available Functional Status Description No Information Available Mental Status Description No Information Available Referrals Description No Information Available
--- OUTSIDE RECORDS SUMMARY | 2021-08-28 15:14 | CCD ---
Author Author Rick Fletcher MD [facility] Organization Rick Fletcher MD [facility] Address [address] [address] Phone Care Team Providers Care Telegraphic Service Dispatcher Name Role Phone Justine BAXTER, Rick ENG Unavailable [phone] Gaurang BAXTER, [facility] Unavailable Reason for Referral No Reason [...] Endothelial Cornea Guttata 04/13/2013 - :00A M Rikc Fletcher MD, FACS Active Note: Unchanged - [...] nicotine dependence 8 Month Follow-Up with Raysa Stuot DO 05/02/2021 Intermediate dry stage nonexudative macular [...] both eyes 9 Month Fo llow-Up with Rikc Fletcher MD, FACS 09/07/2015 Essential hypertension 9 [...] Nonexudative macular degeneration 6 Month Follow-Up wi iRck Fletcher MD, FACS 04/13/2013 Nuclear senile cataract [...] 04/13/2013 - 06/12/2013 Provider: Rick Fletcher MD, [facility] Diagnosis: Macular Degeneration NOS Terazosin HCl 10 MG OR CAPS 04/13/2013 - 11/27/2014 Provider : Diagnosis: Drisdol 1.25 MG (68327 UT) OR CAPS 04/13/2013 - 10/26/2013 Kvng [...] Updated Tobacco non-user 05/02/2021 No tobacco use 07/10/2020 Not using drugs 07/10/2020 Smoking status : Former smoker 07/10/2020 Alcohol use slightly 09/07/2015 Previous smoking history 10/26/2013 Alcohol 04/13/2013 Procedures and Surgical History Includes: Procedures from 07/02/2020 through 07/02/2021 Procedures Code Diagnosis Performing Provider Service Location Service Date Intermediate Eye Exam Established Patient 56593 Type 2 diab with mild nonp rtnop without mclr edema, r eye, Nexdtve age-related mclr degn, right eye, intermed dry stage, Essential (primary) hypertension, Personal history of nicotine dependence David Vera MD [facility] 05/02/2021 Surgical History Last Updated History of extracapsular cataract extrac tion PCIOL OS by Dr. Stout 06/11/2020 ~PCIOL OD by Dr. Stout 06/25/2020 07/10/2020 No surgical / procedural history 07/10/2020 Medical History Includes: Medical History in patient's chart Description Last Updated History of the retina was abnormal 05/17/2020 0 Recent change in medical history Cataract Sx OD by Dr Cristina Stout 06/25/2020 07/10/2020 History of diabetes mellitus Type 2 Dx: 2018 A1c: did not know FBS: does not check 04/25/2020 Essential hypertension 10/19/2015 History of fundoscopic exam through dilated pupils was performed 11/27/2014 2015 Currently wearing eyeglasses for reading 02/15/2015 Reported medical history : Spot on Lung, Sleep Apnea with CPAP, Numbness in feet, Reflux, Allergies 02/15/2015 Not wearing contact lenses 04/13/2013 History of hypertension 04/13/2013 Family History Includes: Family History in patient's chart Description Last Updated Daughter's history of diabetes mellitus 07/10/2020 Daughter's history of thyroid disorder 07/10/2020 Fraternal history of heart disease 07/10/2020 Maternal history of heart disease 07/10/2020 Maternal history of thyroid disorder 07/10/2020 Paternal history of diabetes mellitus 07/10/2020 Family history of heart disease 11/27/2014 Family [...] iagnosis 8 Month Follow-Up David Vera MD [facility] 12:09PM 1:30PM Macular Degeneration Nonexud ative Right Eye Intermediate Dry Stage, 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, Essential Hypertension, History of Nicotine Dependence, Borderline Glaucoma Ocular Hypertension Both Eyes, Pseudophakic - Both Eyes, 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 3 - 4 WK Post CAT SX David eVra MD [facility] 07/26/2020 12:00PM 12:35PM Pseudophakic - Both Eyes 1 Week Post OP David Vera MD [facility] 07/10/20 20 2:22PM 3:58PM Pseudophakic - Both Eyes Insurance Includes: Active Insurance Policies Plan Name Member ID Group # Subscriber Relationship Effective Da hilda 1 - Medicare Part B [facility] ([facility]) [id number] Chirag Ulrich Self 2 - [employer] BLUE [id number] Chirag Ulrich Self 11/16/2019 - Unknown Advance Directives Includes: Current Advance DirectivesNo Advance Directives Recorded Health Concerns Includes: Active Health ConcernsNo Active Health Concerns Recorded Goals Includes: Active GoalsNo Active Goals Recorded Interventions Includes: Interventions for active GoalsNo Interventions Recorded Evaluations & Outcomes Includes: Evaluations & Outcomes for active GoalsNo Outcomes Recorded
--- OUTSIDE RECORDS SUMMARY | 2021-08-28 15:14 | CCD | Continuity of Care Document ---
Author Author Chirag MOYA Organization Unknown Address [address] [place] [address] Phone [phone] Care Team Providers Care Cotton Wringer Name Role Phone Que Merlos M.D. AUTM [phone] Problems Active Problems Provider Date Syncope Lucy [...] Available Procedures Date Code Description Status 06/17/2021 33227 Office/Outpatient Established Mo d MDM 30-39 Min Completed 06/14/2021 85602 EEG Complete STD Phys/QHP>60 HR< 84 HR W/O Video Completed 06/14/2021 66698 EEG Complete STD Phys/QHP>36 HR< 60 HR W/O Video Completed 06/07/2021 05373 Sympathetic Skin Responses Compl eted 06/07/2021 23500 Test Autonomic Nervous System, C ardiovagal Innervation Completed 05/06/2021 67197 Office/Outpatient New Moderate M DM 45-59 Minutes Completed Medical Devices Description No Information Available Encounters Type Date Location Provider Dx Diagnosis Office Visit 06/17/2021 2:00p Main office - [place] Jazmin delgado P.A.-C. R55 Syncope and collapse I48.0 Paroxysmal atrial fibrillati on I95.1 Orthostatic hypotension Office Visit 05/06/2021 2:00p [place] Gle[place] M.[place] R55 Syncope and collapse R41.82 Altered mental status, unspe cified S06.0x0A Concussion without loss of c onsciousness, initial encounter Assessments Date Code Description Provider 06/17/2021 R55 Syncope and collapse Jazmin lopez P.A.-C. 06/17/2021 I48.0 Paroxysmal atrial fibrillation L rebecca Navneet Culp P.A.-C. 06/17/2021 I95.1 Orthostatic hypotension Jazmin Culp P.A.-C. 06/14/2021 R55 Syncope and collapse Lucy shepherd M.D. 06/14/2021 R55 Syncope and collapse EEG 06/07/2021 [...] - Jazmin Culp P.A.-C. at Main office [facility] 06/17/2021 - Jazmin Culp P.A.-C.* R55 Syncope [...]
--- OUTSIDE RECORDS SUMMARY | 2021-08-28 15:14 | CCD | Continuity of Care Document ---
Author Author Chirag HARRINGTON MA Organization Unknown Address [address] [place] [address] Phone [phone] Care Team Providers Care Thermograph Operator Name Role Phone Que Merlos MD AUTM [phone] Problems Active Problems Provider Date Essential hypertension Neto Mason MD Onset: 12/20/2020 Pure hypercholesterolemia Neto Mason MD Onset: 021 Social History Type Date Description Comments Sex Unknown ETOH Use Rarely consumes alcohol Tobacco Use Start: Unknown End: Unknown Patient is a former smoker Quit in 2001. Allergies and adverse reactions Active Allergies Criticality Reaction | Severity Comments Date sulfa drugs Unable to assess criticality 12/20/2020 Aspirin Unable to assess criticality 12/20/2020 Medications Active Medications SIG Qnty Indications Ordering Provide r Date Diclofenac Sodium 1% Gel apply 2 grams to the affected area of left shoulder and neck three times a day as directed 200gm S43.432D Neto Mason MD 11/12/2020 Eliquis 2.5mg Tablets Take 1 Tablet By Mouth Twice Daily For 5 Days Unknown Calcium 600 600mg Tablets 1 by mouth twice a day Unknown Potassium Chloride Crystals Unknown Rosuvastatin Calcium 40mg Tablets Unknown Omeprazole 20mg Tablets DR Unknown Montelukast Sodium 10mg Tablets Unknown Metformin HCL 500mg Tablets Unknown Preservision Areds 2 Areds 2 Chewtabs Unknown Vitamin D 50mcg (1999 Ut) Capsules 1 by mouth every day Unknown Immunizations Description No Information Available Vital Signs Date Vital Result Comment 12/20/2020 1:20pm Body Temperature 97.3 F Height 71 inches 5'11" Weight 185.00 lb BMI (Body Mass Index) 25.8 kg/m2 11/12/2020 3:10pm Body Temperature 97.7 F Height 71 inches 5'11" Weight 185.00 lb BMI (Body Mass Index) 25.8 kg/m2 Results Description No Information Available Procedures Description No Information Available Medical Devices Description No Information Available Encounters Description No Information Available Assessments Description No Information Available Plan of Treatment 02/11/2021 - ZIGGY Bowles* M47.22 Other spondylosis with radiculopathy, cervical region* Follow up:* prn * 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
--- OUTSIDE RECORDS SUMMARY | 2021-08-28 15:14 | CCD ---
Author Author Rick Fletcher MD [facility] Organization Rick Fletcher MD [facility] Address [address] [address] Phone Care Team Providers Care Test And Turn Up Technician Name Role Phone Justine BAXTER, Rick ENG Unavailable [phone] Gaurang BAXTER, [facility] Unavailable Reason for Referral No Reason [...] Eye Early Dry Stage 1 - 12:00AM Rikc Fletcher MD, FACS Active Macular Degeneration Nonexudative [...] Month Follow-Up and Testin g with Rick Flecther MD, FACS 04/19/2019 History of nicotine dependence [...] 04/13/2013 - 06/12/2013 Provider: Rick Fletcher MD, [facility] Diagnosis: Macular Degeneration NOS Terazosin HCl 10 MG OR CAPS 04/13/2013 - 11/27/2014 Provider : Diagnosis: Drisdol 1.25 MG (60393 UT) OR CAPS 04/13/2013 - 10/26/2013 Kvng [...] Service Date Intermediate Eye Exam Established Patient 51759 Type 2 diab with mild nonp rtnop [...] WK Post CAT SX David Vera MD [facility] 07/26/2020 12:00PM 12:35PM Pseudophakic - Both Eyes 1 Week Post OP David Vera MD [facility] 07/10/20 20 2:22PM 3:58PM Pseudophakic - Both Eyes Insurance Includes: Active Insurance Policies Plan Name Member ID Group # Subscriber Relationship Effective Da hilda 1 - Medicare Part B [facility] ([facility]) [id number] Chirag Ulrich Self 2 - [employer] BLUE [id number] Chirag Ulrich Self 11/16/2019 - Unknown Advance Directives Includes: Current Advance DirectivesNo Advance Directives Recorded Health Concerns Includes: Active Health ConcernsNo Active Health Concerns Recorded Goals Includes: Active GoalsNo Active Goals Recorded Interventions Includes: Interventions for active GoalsNo Interventions Recorded Evaluations & Outcomes Includes: Evaluations & Outcomes for active GoalsNo Outcomes Recorded
--- OUTSIDE RECORDS SUMMARY | 2021-08-28 15:14 | CCD ---
Author Author Rick Fletcher MD [facility] Organization Rick Fletcher MD [facility] Address [address] [address] Phone Care Team Providers Care Application Trainer Name Role Phone Justine BAXTER, Rick ENG Unavailable [phone] Gaurang BAXTER, [facility] Unavailable Reason for Referral No [...] in both eyes 5 Month Follow-Up with iRck Fletcher MD, FACS 04/04/2016 Dry nonexudative macular [...] eye 6 Month Follow-Up w ith Rick Fltecher MD, FACS 04/26/2014 Dermatochalasis of both eyes [...] 04/13/2013 - 06/12/2013 Provider: Rick Fletcher MD, [facility] Diagnosis: Macular Degeneration NOS Terazosin HCl 10 MG OR CAPS 04/13/2013 - 11/27/2014 Provider : Diagnosis: Drisdol 1.25 MG (22093 UT) OR CAPS 04/13/2013 - 10/26/2013 Kvng [...] Illness Recorded Social History Description Last Updated No tobacco use 05/02/2021 Not using drugs 05/02/2021 Smoking status : Former smoker 05/02/2021 Tobacco non-user 05/02/2021 Alcohol use slightly 09/07/2015 Previous smoking history 10/26/2013 Alcohol 04/13/2013 Procedures and Surgical History Includes: Procedures from 07/02/2020 through 07/02/2021 Procedures Code Diagnosis Performing Provider Service Location Service Date Intermediate Eye Exam Established Patient 59187 Type 2 diab with mild nonp rtnop without mclr edema, r eye, Nexdtve age-related mclr degn, right eye, intermed dry stage, Essential (primary) hypertension, Personal history of nicotine dependence David Vera MD [facility] 05/02/2021 Surgical History Last Updated History of extracapsular cataract extrac tion PCIOL OS 06/11/[address] Stout ~PCIOL OD 06/25/[address] Stout 07/26/2020 Surgical / procedural history 07/26/2020 Medical History Includes: Medical History in patient's chart Description Last Updated History of the retina was abnormal 05/17/2020 0 History of diabetes mellitus Type 2 Dx: 2018 A1c: did not know FBS: does not check 04/25/2020 Essential hypertension 10/19/2015 No recent change in medical history 10/19/2015 History of fundoscopic exam through dilated pupils was performed 11/27/2014 2015 Currently wearing eyeglasses for reading 02/15/2015 Reported medical history : Spot on Lung, Sleep Apnea with CPAP, Numbness in feet, Reflux, Allergies 02/15/2015 Not wearing contact lenses 04/13/2013 History of hypertension 04/13/2013 Family History Includes: Family History in patient's chart Description Last Updated Daughter's history of diabetes mellitus 05/02/2021 Daughter's history of thyroid disorder 05/02/2021 Fraternal history of heart disease 05/02/2021 Maternal history of heart disease 05/02/2021 Maternal history of thyroid disorder 05/02/2021 Paternal history of diabetes mellitus 05/02/2021 Family history of heart disease 11/27/2014 Family [...] iagnosis 8 Month Follow-Up David Vera MD [facility] 12:09PM 1:30PM Macular Degeneration Nonexud ative Right Eye Intermediate Dry Stage, 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, Essential Hypertension, History of Nicotine Dependence, Borderline Glaucoma Ocular Hypertension Both Eyes, Pseudophakic - Both Eyes, 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 3 - 4 WK Post CAT SX David Vera MD [facility] 07/26/2020 12:00PM 12:35PM Pseudophakic - Both Eyes 1 Week Post OP David Vera MD [facility] 07/10/20 2:22PM 3:58PM Pseudophakic - Both Eyes Insurance Includes: Active Insurance Policies Plan Name Member ID Group # Subscriber Relationship Effective Da hilda 1 - Medicare Part B [facility] ([facility]) [id number] Chirag Ulrich Self 2 - [employer] BLUE [id number] Chirag Buenrostro 11/16/2019 - Unknown Advance Directives Includes: Current Advance DirectivesNo Advance Directives Recorded Health Concerns Includes: Active Health ConcernsNo Active Health Concerns Recorded Goals Includes: Active GoalsNo Active Goals Recorded Interventions Includes: Interventions for active GoalsNo Interventions Recorded Evaluations & Outcomes Includes: Evaluations & Outcomes for active GoalsNo Outcomes Recorded
--- OUTSIDE RECORDS SUMMARY | 2021-08-28 15:15 | CCD | Continuity of Care Document ---
Author Author Janine/Chirag BELLO Organization Unknown Address [address] [place] [address] Phone [phone] Care Team Providers Care Freelance Graphic Designer Name Role Phone Que Merlos M.D. AUTM [phone] Problems Active Problems Provider Date Syncope Lucy Gleason M.D. Onset: 05/06/2021 Social History Type Date Description Comments Sex Unknown Allergies, Adverse Reactions, Alerts Description No Information Available Medications Description No Information Available Immunizations Description No Information Available Vital Signs Description No Information Available Results Description No Information Available Procedures Date Code Description Status 05/06/2021 52247 Office/Outpatient New Moderate M DM 45-59 Minutes Completed Medical Devices Description No Information Available Encounters Type Date Location Provider Dx Diagnosis Office Visit 05/06/2021 2:00p [facility] Lucy Gleason M.D. R55 Syncope and collapse R41.82 Altered mental status, unspe cified S06.0x0A Concussion without loss of c onsciousness, initial encounter Assessments Date Code Description Provider 05/06/2021 R55 Syncope and collapse Lucy shepherd M.D. 05/06/2021 R41.82 Altered mental status, unspecifi ed Lucy Gleason M.D. 05/06/2021 S06.0x0A Concussion without loss of consc iousness, initial encounter Lucy Gleason M.D. Plan of Treatment Future Appointment(s):* 06/17/2021 2:00 pm - Jazmin Culp P.A.-C. at [facility] * 06/14/2021 11:15 am - EEG at [facility] Functional Status Description No Information Available Mental Status Description No Information Available Referrals Description No Information Available
--- OUTSIDE RECORDS SUMMARY | 2021-08-28 15:15 | CCD ---
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 Name Role Phone ISABELA GOLD MD Unavailable Unavailable ISABELA GOLD MD Unavailable Unavailable ISABELA GOLD MD Unavailable Unavailable ISABELA GOLD MD Unavailable Unavailable ISABELA GOLD MD Unavailable Unavailable ISABELA GOLD MD Unavailable Unavailable ISABELA GOLD MD Unavailable Unavailable ISABELA GOLD MD Unavailable Unavailable ISABELA GOLD MD Unavailable Unavailable ISABELA GOLD MD Unavailable Unavailable ISABELA GOLD MD Unavailable Unavailable ISABELA GOLD MD Unavailable Unavailable ISABELA GOLD MD Unavailable Unavailable ISABELA GOLD MD Unavailable Unavailable ISABELA GOLD MD Unavailable Unavailable ISABELA GOLD MD Unavailable Unavailable ISABELA GOLD MD Unavailable Unavailable ISABELA GOLD MD Unavailable Unavailable ISABELA GOLD MD Unavailable Unavailable ISABELA GOLD MD Unavailable Unavailable ISABELA GOLD MD Unavailable Unavailable ISABELA GOLD MD Unavailable Unavailable ISABELA GOLD MD Unavailable Unavailable ISABELA GOLD MD Unavailable Unavailable ISABELA GOLD MD Unavailable Unavailable ISABELA GOLD MD Unavailable Unavailable ALLA, ISABELA BAXTER Unavailable Unavailable ISABELA GOLD MD Unavailable Unavailable ISABELA GOLD MD Unavailable Unavailable ISABELA GOLD MD Unavailable Unavailable ALLA, ISABELA BAXTER Unavailable Unavailable ALLA, ISABELA BAXTER Unavailable Unavailable ALLA, ISABELA BAXTER Unavailable Unavailable ALLA, ISABELA BAXTER Unavailable Unavailable ALLA, ISABELA BAXTER Unavailable Unavailable ALLA, ISABELA BAXTER Unavailable Unavailable ALLA, ISABELA BAXTER Unavailable Unavailable ALLA, ISABELA BAXTER Unavailable Unavailable ALLA, ISABELA BAXTER Unavailable Unavailable ALLA, ISABELA BAXTER Unavailable Unavailable ALLA, ISABELA BAXTER Unavailable Unavailable ALLA, ISABELA BAXTER Unavailable Unavailable ALLA, ISABELA BAXTER Unavailable Unavailable Trickey, J Jazmin PA Unavailable Unavailable Trickey, J Jazmin PA Unavailable Unavailable Trickey, J Jazmin PA Unavailable Unavailable Trickey, J Jazmin PA Unavailable Unavailable Trickey, J Jazmin PA Unavailable Unavailable Trickey, J Jazmin PA Unavailable Unavailable Trickey, J Jazmin PA Unavailable Unavailable Trickey, J Jazmin PA Unavailable Unavailable Trickey, J Jazmin PA Unavailable Unavailable Trickey, J Jazmin PA Unavailable Unavailable Trickey, J Jazmin PA Unavailable Unavailable Trickey, J Jazmin PA Unavailable Unavailable Trickey, J Jazmin PA Unavailable Unavailable Trickey, J Jazmin PA Unavailable Unavailable Trickey, J Jazmin PA Unavailable Unavailable Trickey, J Jazmin PA Unavailable Unavailable Trickey, J Jazmin PA Unavailable Unavailable Trickey, J Jazmin PA Unavailable Unavailable Trickey, J Jazmin PA Unavailable Unavailable Trickey, J Jazmin PA Unavailable Unavailable Trickey, J Jazmin PA Unavailable Unavailable Trickey, J Jazmin PA Unavailable Unavailable Trickey, J Jazmin PA Unavailable Unavailable Trickey, J Jazmin PA Unavailable Unavailable Trickey, J Jazmin PA Unavailable Unavailable Trickey, J Jazmin PA Unavailable Unavailable Trickey, J Jazmin PA Unavailable Unavailable Trickey, J Jazmin PA Unavailable Unavailable Trickey, J Jazmin PA Unavailable Unavailable Trickey, J Jazmin PA Unavailable Unavailable Trickey, J Jazmin PA Unavailable Unavailable Trickey, J Jazmin PA Unavailable Unavailable Trickey, J Jazmin PA Unavailable Unavailable Trickey, J Jazmin PA Unavailable Unavailable Trickey, J Jazmin PA Unavailable Unavailable Trickey, J Jazmin PA Unavailable Unavailable Trickey, J Jazmin PA Unavailable Unavailable Trickey, J Jazmin PA Unavailable Unavailable Trickey, J Jazmin PA Unavailable Unavailable Trickey, J Jazmin PA Unavailable Unavailable Trickey, J Jazmin PA Unavailable Unavailable Trickey, J Jazmin PA Unavailable Unavailable Trickey, J Jazmin PA Unavailable Unavailable Trickey, J Jazmin PA Unavailable Unavailable Trickey, J Jazmin PA Unavailable Unavailable Trickey, J Jazmin PA Unavailable Unavailable Trickey, J Jazmin PA Unavailable Unavailable Trickey, J Jazmin PA Unavailable Unavailable Trickey, J Jazmin PA Unavailable Unavailable SYMENOW, G CHRISTOPHER PA Unavailable Unavailable SYMENOW, G CHRISTOPHER PA Unavailable Unavailable SYMENOW, G CHRISTOPHER PA Unavailable Unavailable SYMENOW, G CHRISTOPHER PA Unavailable Unavailable SYMENOW, G CHRISTOPHER PA Unavailable Unavailable SYMENOW, G CHRISTOPHER PA Unavailable Unavailable SYMENOW, G CHRISTOPHER PA Unavailable Unavailable SYMENOW, G CHRISTOPHER PA Unavailable Unavailable SYMENOW, G CHRISTOPHER PA Unavailable Unavailable SYMENOW, G CHRISTOPHER PA Unavailable Unavailable SYMENOW, G CHRISTOPHER PA Unavailable Unavailable SYMENOW, G CHRISTOPHER PA Unavailable Unavailable SYMENOW, G CHRISTOPHER PA Unavailable Unavailable SYMENOW, G CHRISTOPHER PA Unavailable Unavailable SYMENOW, G CHRISTOPHER PA Unavailable Unavailable SYMENOW, G CHRISTOPHER PA Unavailable Unavailable [place], V GINNY PA-C Unavailable Unavailable [place], V GINNY PA-C Unavailable Unavailable Simran, V GINNY PA-C Unavailable Unavailable [place], V GINNY PA-C Unavailable Unavailable Simran, V GINNY PA-C Unavailable Unavailable [place], V GINNY PA-C Unavailable Unavailable Simran, V GINNY PA-C Unavailable Unavailable Simran, V GINNY PA-C Unavailable Unavailable Simran, V GINNY PA-C Unavailable Unavailable [place], V GINNY PA-C Unavailable Unavailable [place], V GINNY PA-C Unavailable Unavailable Simran, V GINNY PA-C Unavailable Unavailable [place], V GINNY PA-C Unavailable Unavailable Simran, V GINNY PA-C Unavailable Unavailable Fons, M Oneyda SUPERINTENDENT BOARD MILL Unavailable Unavailable Fons, M Oneyda SUPERINTENDENT BOARD MILL Unavailable Unavailable Fons, M Oneyda SUPERINTENDENT BOARD MILL Unavailable Unavailable Fons, M Oneyda SUPERINTENDENT BOARD MILL Unavailable Unavailable Fons, M Oneyda SUPERINTENDENT BOARD MILL Unavailable Unavailable Fons, M Oneyda SUPERINTENDENT BOARD MILL Unavailable Unavailable Fons, M Oneyda SUPERINTENDENT BOARD MILL Unavailable Unavailable Fons, M Oneyda SUPERINTENDENT BOARD MILL Unavailable Unavailable Fons, M Oneyda SUPERINTENDENT BOARD MILL Unavailable Unavailable Fons, M Oneyda SUPERINTENDENT BOARD MILL Unavailable Unavailable Fons, M Oneyda SUPERINTENDENT BOARD MILL Unavailable Unavailable Fons, M Oneyda SUPERINTENDENT BOARD MILL Unavailable Unavailable Fons, M Oneyda SUPERINTENDENT BOARD MILL Unavailable Unavailable Fons, M Oneyda SUPERINTENDENT BOARD MILL Unavailable Unavailable Fons, M Oneyda SUPERINTENDENT BOARD MILL Unavailable Unavailable Fons, M Oneyda SUPERINTENDENT BOARD MILL Unavailable Unavailable Fons, M Oneyda SUPERINTENDENT BOARD MILL Unavailable Unavailable Fons, M Oneyda SUPERINTENDENT BOARD MILL Unavailable Unavailable Fons, M Oneyda SUPERINTENDENT BOARD MILL Unavailable Unavailable Fons, M Oneyda SUPERINTENDENT BOARD MILL Unavailable Unavailable Fons, M Oneyda SUPERINTENDENT BOARD MILL Unavailable Unavailable Fons, M Oneyda SUPERINTENDENT BOARD MILL Unavailable Unavailable Fons, M Oneyda SUPERINTENDENT BOARD MILL Unavailable Unavailable Fons, M Oneyda SUPERINTENDENT BOARD MILL Unavailable Unavailable Fons, M Oneyda SUPERINTENDENT BOARD MILL Unavailable Unavailable Fons, M Oneyda SUPERINTENDENT BOARD MILL Unavailable Unavailable Fons, M Oneyda SUPERINTENDENT BOARD MILL Unavailable Unavailable Fons, M Oneyda SUPERINTENDENT BOARD MILL Unavailable Unavailable Fons, M Oneyda SUPERINTENDENT BOARD MILL Unavailable Unavailable Fons, M Oneyda SUPERINTENDENT BOARD MILL Unavailable Unavailable Fons, M Oneyda SUPERINTENDENT BOARD MILL Unavailable Unavailable Fons, M Oneyda SUPERINTENDENT BOARD MILL Unavailable Unavailable Fons, M Oneyda SUPERINTENDENT BOARD MILL Unavailable Unavailable Fons, M Oneyda SUPERINTENDENT BOARD MILL Unavailable Unavailable Fons, M Oneyda SUPERINTENDENT BOARD MILL Unavailable Unavailable Fons, M Oneyda SUPERINTENDENT BOARD MILL Unavailable Unavailable Fons, M Oneyda SUPERINTENDENT BOARD MILL Unavailable Unavailable Fons, M Oneyda SUPERINTENDENT BOARD MILL Unavailable Unavailable Fons, M Oneyda SUPERINTENDENT BOARD MILL Unavailable Unavailable Fons, M Oneyda SUPERINTENDENT BOARD MILL Unavailable Unavailable Fons, M Oneyda SUPERINTENDENT BOARD MILL Unavailable Unavailable Fons, M Oneyda SUPERINTENDENT BOARD MILL Unavailable Unavailable Fons, M Oneyda SUPERINTENDENT BOARD MILL Unavailable Unavailable Fons, M Oneyda SUPERINTENDENT BOARD MILL Unavailable Unavailable Fons, M Oneyda SUPERINTENDENT BOARD MILL Unavailable Unavailable Fons, M Oneyda SUPERINTENDENT BOARD MILL Unavailable Unavailable Fons, M Oneyda SUPERINTENDENT BOARD MILL Unavailable Unavailable Fons, M Oneyda SUPERINTENDENT BOARD MILL Unavailable Unavailable Fons, M Oneyda SUPERINTENDENT BOARD MILL Unavailable Unavailable Fons, M Oneyda SUPERINTENDENT BOARD MILL Unavailable Unavailable Fons, M Oneyda SUPERINTENDENT BOARD MILL Unavailable Unavailable Fons, M Oneyda SUPERINTENDENT BOARD MILL Unavailable Unavailable Fons, M Oneyda SUPERINTENDENT BOARD MILL Unavailable Unavailable Que Merlos MD Unavailable Unavailable Que Merlos MD Unavailable Unavailable Que Merlos MD Unavailable Unavailable Que Merlos MD Unavailable Unavailable Que Merlos MD Unavailable Unavailable Que Merlos MD Unavailable Unavailable Que Merlos MD Unavailable Unavailable Wetterhahn, Que BAXTER Unavailable Unavailable Wetterhahn, Que BAXTER Unavailable Unavailable Wetterhahn, Que BAXTER Unavailable Unavailable Wetterhahn, Que BAXTER Unavailable Unavailable Wetterhahn, Que BAXTER Unavailable Unavailable Wetterhahn, Que BAXTER Unavailable Unavailable Wetterhahn, Que BAXTER Unavailable Unavailable Wetterhahn, Qeu BAXTER Unavailable Unavailable Wetterhahn, Que BAXTER Unavailable Unavailable Wetterhahn, Que BAXTER Unavailable Unavailable Wetterhahn, Que BAXTER Unavailable Unavailable Wetterhahn, Que BAXTER Unavailable Unavailable Wetterhahn, Que BAXTER Unavailable Unavailable Wetterhahn, Que BAXTER Unavailable Unavailable Wetterhahn, Que BAXTER Unavailable Unavailable Wetterhahn, Que BAXTER Unavailable Unavailable Wetterhahn, Que BAXTER Unavailable Unavailable Wetterhahn, Que BAXTER Unavailable Unavailable Wetterhahn, Que BAXTER Unavailable Unavailable Wetterhahn, Que BAXTER Unavailable Unavailable Wetterhahn, Que BAXTER Unavailable Unavailable WetterhahnQue MD Unavailable Unavailable WetterhahnQue MD Unavailable Unavailable WetterhahnQue MD Unavailable Unavailable Wetterhahn, Que BAXTER Unavailable Unavailable Wetterhahn, Que BAXTER Unavailable Unavailable Wetterhahn, uQe BAXTER Unavailable Unavailable Wetterhahn, Que BAXTER Unavailable Unavailable Wetterhahn, Que BAXTER Unavailable Unavailable Wetterhahn, Que BAXTER Unavailable Unavailable Wetterhahn, Que BAXTER Unavailable Unavailable Wetterhahn, Que BAXTER Unavailable Unavailable Wetterhahn, Que BAXTER Unavailable Unavailable Wetterhahn, Que BAXTER Unavailable Unavailable WetterhahnQue MD Unavailable Unavailable WetterhahnQue MD Unavailable Unavailable WetterhahnQue MD Unavailable Unavailable WetterhahnQue MD Unavailable Unavailable Wetterhahn, Que BAXTER Unavailable Unavailable Wetterhahn, Que BAXTER Unavailable Unavailable Wetterhahn, Que BAXTER Unavailable Unavailable WetterhahnQue MD Unavailable Unavailable WetterhahnQue MD Unavailable Unavailable WetterhahnQue MD Unavailable Unavailable Wetterhahn, Que BAXTER Unavailable Unavailable [place]terhahn, Que BAXTER Unavailable Unavailable Wetterhahn, Que BAXTER Unavailable Unavailable Wetterhahn, Que BAXTER Unavailable Unavailable WetterhahnQue MD Unavailable Unavailable WetterhahnQue MD Unavailable Unavailable WetterhahnQue MD Unavailable Unavailable WetterhahnQue MD Unavailable Unavailable WetterhahnQue MD Unavailable Unavailable WetterhahnQue MD Unavailable Unavailable WetterhahnQue MD Unavailable Unavailable WetterhahnQue MD Unavailable Unavailable Que Merlos MD Unavailable Unavailable Que Merlos MD Unavailable Unavailable WetterQue geronimo MD Unavailable Unavailable WetterQue geronimo MD Unavailable Unavailable WetterQue geronimo MD Unavailable Unavailable WetterQue geronimo MD Unavailable Unavailable WetterQue geronimo MD Unavailable Unavailable WetterQue geronimo MD Unavailable Unavailable WetterhahnQue MD Unavailable Unavailable QI, A ANDRAE DO Unavailable Unavailable QI, A ANDRAE DO Unavailable Unavailable QI, A ANDRAE DO Unavailable Unavailable QI, A ANDRAE DO Unavailable Unavailable QI, A ANDRAE DO Unavailable Unavailable QI, A ANDRAE DO Unavailable Unavailable QI, A ANDRAE DO Unavailable Unavailable QI, A ANDRAE DO Unavailable Unavailable QI, A ANDRAE DO Unavailable Unavailable QI, A ANDRAE DO Unavailable Unavailable QI, A ANDRAE DO Unavailable Unavailable QI, A ANDRAE DO Unavailable Unavailable QI, A ANDRAE DO Unavailable Unavailable QI, A ANDRAE DO Unavailable Unavailable QI, A ANDRAE DO Unavailable Unavailable QI, A ANDRAE DO Unavailable Unavailable QI, A ANDRAE DO Unavailable Unavailable QI, A ANDRAE DO Unavailable Unavailable QI, A ANDRAE DO Unavailable Unavailable QI, A ANDRAE DO Unavailable Unavailable QI, A ANDRAE DO Unavailable Unavailable QI, A ANDRAE DO Unavailable Unavailable LEN, M SALEEM PA Unavailable Unavailable LEN, M SALEEM PA Unavailable Unavailable LEN, M SALEEM PA Unavailable Unavailable LEN, M SALEEM PA Unavailable Unavailable LEN, M SALEEM PA Unavailable Unavailable LEN, M SALEEM PA Unavailable Unavailable LEN, M SALEEM PA Unavailable Unavailable LEN, M SALEEM PA Unavailable Unavailable LEN, M SALEEM PA Unavailable Unavailable LEN, M SALEEM PA Unavailable Unavailable LEN, M SALEEM PA Unavailable Unavailable LEN, M SALEEM PA Unavailable Unavailable LEN, M SALEEM PA Unavailable Unavailable LEN, M SALEEM PA Unavailable Unavailable LEN, M SALEEM PA Unavailable Unavailable LEN, M SALEEM PA Unavailable Unavailable LEN, M SALEEM PA Unavailable Unavailable LEN, M SALEEM PA Unavailable Unavailable LEN, M SALEEM PA Unavailable Unavailable LEN, M SALEEM PA Unavailable Unavailable LEN, M SAELEM PA Unavailable Unavailable LEN, M SALEEM PA Unavailable Unavailable LEN, M SALEEM PA Unavailable Unavailable LEN, M SALEEM PA Unavailable Unavailable Re-disclosure Warning The records that you are about to access may contain information from federally-assisted alcohol or drug abuse programs. If such information is present, then the following federally mandated warning applies: This information has been disclosed to you from records protected by federal confidentiality rules (42 CFR part 2). The federal rules prohibit you from making any further disclosure of this information unless further disclosure is expressly permitted by the written consent of the person to whom it pertains or as otherwise permitted by 42 CFR part 2. A general authorization for the release of medical or other information is NOT sufficient for this purpose. The Federal rules restrict any use of the information to criminally investigate or prosecute any alcohol or drug abuse patient.The records that you are about to access may contain highly sensitive health information, the redisclosure of which is protected by Article 27-F of the [facility] Public Health law. If you continue you may have access to information: Regarding HIV / AIDS; Provided by facilities licensed or operated by the [facility] Office of Mental Health; or Provided by the [facility] Office for People With Developmental Disabilities. If such information is present, then the following [facility] mandated warning applies: This information has been disclosed to you from confidential records which are protected by state law. State law prohibits you from making any further disclosure of this information without the specific written consent of the person to whom it pertains, or as otherwise permitted by law. Any unauthorized further disclosure in violation of state law may result in a fine or fci sentence or both. A general authorization for the release of medical or other information is NOT sufficient authorization for further disc losure. Allergies and Adverse Reactions Type Description Substance Reaction Status Data Source(s ) Allergy to substance No Known Allergies No known allergies (situation ) MAGNOLIA (Rick Sandoval MD [facility]) Allergy to substance No Known Allergies No known allergies (situation ) MAGNOLIA (Rick Sandoval MD [facility]) Allergy to substance No Known Allergies No known allergies (situation ) MAGNOLIA (Rick Sandoval MD [facility]) Allergy to substance No Known Allergies No known allergies (situation ) MAGNOLIA (Rick Sandoval MD [facility]) Allergy to substance No Known Allergies No known allergies (situation ) MAGNOLIA (Rick Sandoval MD [facility]) Allergy to substance No Known Allergies No known allergies (situation ) MAGNOLIA (Rick Sandoval MD [facility]) Allergy to substance No Known Allergies No known allergies (situation ) ALEJA (Rick Sandoval MD [facility]) Allergy to substance No Known Allergies No known allergies (situation ) ALEJA (Rick Sandoval MD [facility]) Allergy to substance No Known Allergies No known allergies (situation ) ALEJA (Rick Sandoval MD [facility]) Family History Family Member Name Family Member Gender Family Member Status Date o f Status Description Data Source(s) Unknown Unknown Problem MEDENT ([facility], ) Unknown Male Problem MEDENT ([facility] () Unknown Female Problem MEDENT ([facility]) Unknown Female Problem MEDENT ([facility] Unknown Female Problem MEDENT ([facility] Encounters Encounter Providers Location Date Indications Data Source(s ) Outpatient Attender: GINNY BROWN-SJP.ANDREZ 04/2021 12:00:00 AM EDT - 08/21/2021 11:09:51 AM EDT [facility] [address] [address] 08/15/2021 12:00:00 AM EDT eC ([facility]) Outpatient Attender: Oneyda BROWN-SJP.ANDREZ 12:00:00 AM EDT - 07/31/2021 11:37:52 AM EDT [facility] Out[facility] [address] [address] 07/25/2021 12:00:00 AM EDT eCW1 ([facility]) Outpatient Attender: Oneyda BROWN-SJPCristinaANDREZ 12:00:00 AM EDT - 06/18/2021 11:59:57 AM EDT [facility] Outpatient Attender: Jazmin TRINH [facility] 06/17/2021 02:00:00 PM EDT MEDENT ([facility]ael ) Outpatient Attender: ISABELA GOLD MD Main office - [facility] 05/06/2021 02:00:00 PM EDT MATT ([facility] clint ) Outpatient<td ID="encounterTypeDescripti onID0">8 Month Follow-Up</td><td>Andrae Stout DO</td><td>Rick Fletcher MD 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 05/02/2021 12:09:00 PM EDT - 05/02/2021 01:30:00 PM EDT Pseudophakic - Both EyesPseudophakic - B oth EyesPseudophakic - Both EyesPseudophakic - Both EyesPseudophakic - Both EyesPseudophakic - Both Eyes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Borderline Glaucoma Ocular Hypertension Both EyesHistory of Nicotine DependenceEssential Hypertension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Borderline Glaucoma Ocular Hypertension Both EyesHistory of Nicotine DependenceEssential Hypertension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Borderline Glaucoma Ocular Hypertension Both EyesHistory of Nicotine DependenceEssential Hypertension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Borderline Glaucoma Ocular Hypertension Both EyesHistory of Nicotine DependenceEssential Hypertension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Borderline Glaucoma Ocular Hype rtension Both EyesHistory of Nicotine DependenceEssential Hypertension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Borderline Glaucoma Ocular Hypertension Both EyesHistory of Nicotine DependenceEssential Hypertension ALEJA (Rick Sandoval MD 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 Macular Degeneration Nonexudative Left E ye Early Dry Stage 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 Macular Degeneration Nonexudative Left E ye Early Dry Stage 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 Macular Degeneration Nonexudative Left E ye Early Dry Stage 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 Essential Hypertension 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 Essential Hypertension 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 Essential Hypertension 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 Essential Hypertension 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 Outpatient [address] [facility] [facility] [id number] 04/03/2021 12:00:00 AM EDT eCW1 ([facility]) Office Visit, Est Pt., Level 2 FC [address] [place] [address] 02/21/2021 12:00:00 AM EDT eCW1 (Count includes the [facility]) Unknown [address] [facility] [address] 02/18/2021 12:00:00 AM EDT eCW1 ([facility]) Outpatient Attender: SALEEM TRINH Physical Therapy 01/15 02:00:00 PM EDT MEDENT ([facility]) Unknown [address] [facility] [address] 01/22/2021 12:00:00 AM EST eCW1 ([facility]) Unknown [address] [facility] [address] 12/14/2020 12:00:00 AM EST eCW1 ([facility]) OFFICE OUTPATIENT VISIT 15 MINUTES Attender: SALEEM TRINH Ph ysical Therapy 11/12/2020 02:00:00 PM EST MEDENT ([facility]) Outpatient Attender: Oneyda CERON SJP.ANDREZ-SJP.ANDREZ 12:00:00 AM EST - 10/24/2020 01:45:59 PM EST [facility] TeleMedicine Est. Pt. Level 3 [address] [place] [address] 10/03/2020 12:00:00 AM EST eCW1 ([facility]) [place] [address] [facility] [place] [address] 08/21/2020 12:00:00 AM EDT eCW1 ([facility]) Outpatient [address] [facility] [address] 08/21/2020 12:00:00 AM EDT eCW1 ([facility]) <td ID="encounterTypeDescriptionID1">3 - 4 W[place] [address] CAT SX</td><td>Andrae Stout DO</td><td>Rick Fletcher MD [facility]</td><td>07/26/2020</td><td>12:00PM</td><td>12:35PM</td><td><content ID="encounterDiagnosisID1-0">Pseudophakic - Both Eyes</content></td>Outpatient Attender: ANDRAE Vera MD [facility] 07/26/2020 12:00:00 PM EDT - 07/26/2020 12:35:00 PM EDT Pseudophakic - Both EyesPseudophakic - B oth EyesPseudophakic - Both EyesPseudophakic - Both EyesPseudophakic - Both EyesPseudophakic - Both EyesPseudophakic - Both EyesPseudophakic - Both EyesPseudophakic - Both Eyes ALEJA (Rick Sandoval MD 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 Outpatient Attender: ANDRAE STOUT DO 0 06/11/2020 07:18:00 AM EDT - 06/11/2020 10:30:00 AM [facility] Patient discharged. Immunizations Vaccine Date Status Description Data Source(s) influenza, recombinant, quadrIvalent,injectable, prese rvative free 08/21/2020 05:32:00 PM EDT completed eCW1 ([facility]) influenza, recombinant, quadrIvalent,injectable, prese rvative free 08/21/2020 05:32:00 PM EDT completed eCW1 ([facility]) influenza, recombinant, quadrIvalent,injectable, prese rvative free 08/21/2020 05:32:00 PM EDT completed eCW1 ([facility]) influenza, recombinant, quadrIvalent,injectable, prese rvative free 08/21/2020 05:32:00 PM EDT completed eCW1 ([facility]) influenza, recombinant, quadrIvalent,injectable, prese rvative free 08/21/2020 05:32:00 PM EDT completed eCW1 ([facility]) influenza, recombinant, quadrIvalent,injectable, prese rvative free 08/21/2020 05:32:00 PM EDT completed eCW1 ([facility]) influenza, recombinant, quadrIvalent,injectable, prese rvative free 08/21/2020 05:32:00 PM EDT completed eCW1 ([facility]) influenza, recombinant, quadrIvalent,injectable, prese rvative free 08/21/2020 05:32:00 PM EDT completed eCW1 ([facility]) influenza, recombinant, quadrIvalent,injectable, prese rvative free 08/21/2020 05:32:00 PM EDT completed eCW1 ([facility]) influenza, recombinant, quadrIvalent,injectable, prese rvative free 08/21/2020 05:32:00 PM EDT completed eCW1 ([facility]) influenza, recombinant, quadrIvalent,injectable, prese rvative free 08/21/2020 05:32:00 PM EDT completed eCW1 ([facility]) influenza, recombinant, quadrIvalent,injectable, prese rvative free 08/21/2020 05:32:00 PM EDT completed eCW1 ([facility]) Medications Medication Brand Name Start Date Product Form Dose Route Admi nistrative Instructions Pharmacy Instructions Status Indications Reaction Description Data Source(s) midodrine hydrochloride 2.5 MG Oral Tablet midodrine ( PROAMATINE) 2.5 MG tablet midodrine (PROAMATINE) 2.5 MG tablet 08/21/2021 12:00:00 AM EDT 2.5 m g Oral active Take 1 tablet (2.5 mg total) by mouth 2 (two) times a day [facility] 60 mcg (15 mcg x 4)/0.5 mL 08/12/2021 12:00:00 AM EDT syring e 0 INJECT INTO THE RIGHT ARM INJECT INTO THE RIGHT ARM SOLD: 08/12/2021 [facility] 4 mg 04/15/2021 12:00:00 AM EDT tablet 10 TAKE TWO TABLETS BY MOUTH EVERY DAY TAKE TWO TABLETS BY MOUTH EVERY DAY SOLD: 04/15/2021 [facility] tramadol hydrochloride 50 MG Oral Tablet Tramadol HCl 50 MG Tramadol HCl 50 MG 01/22/2021 12:00:00 AM EST 1.0 {tablet_as_needed} active Tramadol HCl 50 MG eCW1 ([facility]) tramadol hydrochloride 50 MG Oral Tablet Tramadol HCl 50 MG Tramadol HCl 50 MG 01/22/2021 12:00:00 AM EST 1.0 {tablet_as_needed} active Tramadol HCl 50 MG eCW1 ([facility]) tramadol hydrochloride 50 MG Oral Tablet traMADol HCl 50 MG traMADol HCl 50 MG 01/22/2021 12:00:00 AM EST 1.0 {tablet_as_needed} active traMADol HCl 50 MG eCW1 ([facility]) tramadol hydrochloride 50 MG Oral Tablet Tramadol HCl 50 MG Tramadol HCl 50 MG 01/22/2021 12:00:00 AM EST 1.0 {tablet_as_needed} active Tramadol HCl 50 MG eCW1 ([facility]) tramadol hydrochloride 50 MG Oral Tablet traMADol HCl 50 MG traMADol HCl 50 MG 01/22/2021 12:00:00 AM EST 1.0 {tablet_as_needed} active traMADol HCl 50 MG eCW1 ([facility]) tramadol hydrochloride 50 MG Oral Tablet Tramadol HCl 50 MG Tramadol HCl 50 MG 01/22/2021 12:00:00 AM EST 1.0 {tablet_as_needed} active Tramadol HCl 50 MG eCW1 ([facility]) tramadol hydrochloride 50 MG Oral Tablet Tramadol HCl 50 MG Tramadol HCl 50 MG 01/22/2021 12:00:00 AM EST 1.0 {tablet_as_needed} active Tramadol HCl 50 MG eCW1 ([facility]) Diclofenac Sodium 0.01 MG/MG Topical Gel Diclofenac Sodium 11/12/2020 12:00:00 AM EST active [facility] ([facility] loteprednol etabonate 5 MG/ML / Tobramyc in 3 MG/ML Ophthalmic Suspension [Zylet] Zylet 0.5-0.3% Ophthalmic Suspension Zylet 0.5-0.3% Ophthalmic Suspension 07/10/2020 12:00:00 AM EDT aborted loteprednol etabonate 5 MG/ML / tobramycin 3 MG/ML Ophthalmic Suspension [Zylet] ALEJA (Rick Sandoval MD [facility]) BromSite 0.075% Ophthalmic Solution BromSite 0.075% Ophthalm ic Solution 06/06/2020 12:00:00 AM EDT aborted bromfenac 0.75 MG/ML Ophthalmic Solution [Bromsite] ALEJA (Rick Sandoval MD [facility]) besifloxacin 6 MG/ML Ophthalmic Suspensi on [Besivance] Besivance 0.6% Ophthalmic Suspension Besivance 0.6% Ophthalmic Suspension 06/06/2020 12:00:00 AM EDT aborted besifloxacin 6 MG/ML Ophthalmic Suspension [Besivance] ALEJA (Rick Sandoval MD [facility]) Inveltys 1% Ophthalmic Suspension Inveltys 1% Ophthalmic Krystal pension 06/06/2020 12:00:00 AM EDT aborted loteprednol etabonate 10 MG/ML Ophthalmic Suspension [Inveltys] ALEJA (Rick Sandoval MD [facility]) Omeprazole 20 MG Delayed Release Oral Tablet Omeprazol e 20 MG [facility]EC Omeprazole 20 MG [facility]EC 08/31/2014 12:00:00 AM EDT aborted OMEPRAZOLE 20 MG TBEC [facility] ipratropium (ATROVENT) 0.03 % nasal spray [id number] 08/31/2014 12:00:00 AM EDT aborted as needed [facility] Ascorbic Acid 500 MG Oral Tablet ascorbic acid (VITAMI N C) 500 MG tablet ascorbic acid (VITAMIN C) 500 MG tablet 08/31/2014 12:00:00 AM EDT aborted VITAMIN C 500 MG TABS [facility] Multiple Vitamin (MULTIVITAMIN) capsule [id number] 08/31/20 12:00:00 AM EDT aborted MULTIVITAMINS CA PS [facility] Multiple Vitamins-Minerals (PRESERVISION AREDS 2 PO) drug or medicati on Oral aborted Take by mouth [facility] potassium chloride in dextrose solution drug or medication aborted [facility] Chlorthalidone 25 MG Oral Tablet chlorthalidone (HYGRO TEN) 25 MG tablet chlorthalidone (HYGROTEN) 25 MG tablet 12.5 mg Oral aborted Take 12.5 mg by mouth daily [facility] apixaban 2.5 MG Oral Tablet apixaban (Eliquis) 2.5 MG TABS tablet apixaban (Eliquis) 2.5 MG TABS tablet 5 mg Oral aborted Take 5 mg by mouth 2 (two) times a day [facility] Ipratropium Marcellus 0.2 MG/ML Inhalant S olution ipratropium (ATROVENT) 0.02 % nebulizer solution ipratropium (ATROVENT) 0.02 % nebulizer solution aborted as needed [facility] Hydrochlorothiazide 25 MG / Triamterene 37.5 MG Oral Tablet triamterene- hydrochlorothiazide (MAXZIDE-25) 37.5-25 MG per tablet triamterene- hydrochlorothiazide (MAXZIDE-25) 37.5-25 MG per tablet 1 {tb l} Oral aborted Take 1 tablet by mouth daily [facility] Lisinopril 40 MG Oral Tablet lisinopril (PRINIVIL,ZEST RIL) 40 MG tablet lisinopril (PRINIVIL,ZESTRIL) 40 MG tablet 40 mg Oral aborted Take 40 mg by mouth daily [facility] Gabapentin 10 % CREA [id number] aborted [facility] Lisinopril 1 MG/ML SOLN [id number] aborted [facility] Chlorthalidone 25 MG Oral Tablet chlorthalidone (HYGRO TEN) 25 MG tablet chlorthalidone (HYGROTEN) 25 MG tablet abort ed [facility] Tamsulosin hydrochloride 0.4 MG Oral Capsule tamsulosi n (FLOMAX) 0.4 MG CAPS tamsulosin (FLOMAX) 0.4 MG CAPS 0.4 mg Oral aborte d Take 0.4 mg by mouth daily [facility] apixaban 2.5 MG Oral Tablet apixaban (Eliquis) 2.5 MG TABS tablet apixaban (Eliquis) 2.5 MG TABS tablet aborted [facility] cetirizine hydrochloride 10 MG Oral Caps ule [Zyrtec] Cetirizine HCl (ZyrTEC Allergy) 10 MG CAPS Cetirizine HCl (ZyrTEC Allergy) 10 MG CAPS aborted [facility] Insurance Providers Payer name Policy type / Coverage type Policy ID Covered libertarian ID Covered libertarian's relationship to quinones Policy Quinones Plan Information MEDICARE [id number] xxxxxxxxxxx [id number] Medicare Medicare Primary [id number] .9800.0 Self [id number] MEDICARE [id number] SP [id number] A Medicare Medicare Primary [id number] 2.0.1.909412.3.227.99.936 .9800.0 Self [id number] Medicare Medicare Primary [id number] 2.0.1.476228.3.227.99.936 .9800.0 Self [id number] Medicare Medicare Primary [id number] 2.0.1.698936.3.227.99.936 .9800.0 Self [id number] Medicare Medigap Part B [id number] 2.0.1.849748.3.227.99.936.980 0.0 Self [id number] [place] MED[employer] [id number] S [id number] Medicare Medicare Primary [id number] 2.0.1.431738.3.227. 99.936.9800.0 Self [id number] Medicare Medigap Part B [id number] 2.16.840.1.104845.3.227.99.936.980 0.0 Self [id number] [place]ICARE [place] [id number] S [id number] Medicare Medicare Primary [id number] 2.16.840.1.355730.3.227.99.936 .9800.0 Self [id number] MEDICARE [id number] [place] [id number] Medicare Medicare Primary [id number] Self Medicare [place] Medicare Primary 2.16.840.1.737633.3. 227.99.6619.91186.0 Self Medicare Medicare Primary [id number] 2.16.840.1.857810.3.227.99.936 .9800.0 Self [id number] Medicare Medicare Primary [id number] 2.16.840.1.741566.3.227. 99.936.9800.0 Self [id number] Greetz [id number] 2.16.840.1.536130.3.227.99.177. 6434.0 Self [id number] Greetz [id number] 2.16.840.1.301705.3.227.9 9.8646.15918.0 Self [id number] [facility] HEALTH CARE OPTIONS [id number] SP [id number] [facility] [id number] xxxxxxxxxxx [id number] [facility] [id number] [place] [id number] [employer] Other 0 [id number] Se lf 0 [place] Other 0 [id number] Se lf 0 [place] Other 0 [id number] Se lf 0 [place] Other 0 [id number] Se lf 0 [place] [id number] S [id number] [place] Other 0 [id number] Se lf 0 BCBS of [facility] [place] Other 0 [id number] Se lf 0 BCBS of [facility] [place] Other 0 [id number] Se lf 0 BCBS of [facility] [place] Other 0 [id number] Se lf 0 BCBS of [facility] [place] Other 0 [id number] Se lf 0 BCBS of [facility] [place] Other 0 [id number] Se lf 0 Medicare Part B of [facility] Other 0 [id number] Self 0 ANSI-Medicare Part B [id number] ANSI-Commercial [id number] Medicare Dme Medigap Part B [id number] 2.16.840.1.630255.3.227.99 .936.9800.0 Self [id number] [employer] Insurance Medigap Part B [id number] 2.16.840.1.890320.3.227. 99.936.9800.0 Self [id number] ANSI-Commercial [id number] ANSI-Medicare Part B [id number] ANSI-Commercial [id number] ANSI-Medicare Part B [id number] Medicare Dme Medigap Part B [id number] 2..1.011590.3.227.99 .936.9800.0 Self [id number] [facility] Insurance [facility] Part [facility] [id number] 2..1.663213.3.227. 99.936.9800.0 Self [id number] ANSI-Medicare Part B [id number] ANSI-Commercial [id number] ANSI-Commercial [id number] ANSI-Medicare Part B [id number] Hum[employer] [facility] Part B [id number] 2...947443.3.227.99.8646.495 86.0 Self [id number] Aarp Medigap Part B [id number] 2...737740.3.227.99.8646. 44576.0 Self [id number] A[facility] Part B [id number] 2..1.470428.3.227.99.8646.4 9586.0 Self [id number] Medicare [place] Medicare Primary [id number] 2..1.671612.3.227.99.8646.21733.0 Self [id number] ANSI-Medicare Part B [id number] ANSI-Commercial [id number] ANSI-Commercial [id number] ANSI-Medicare Part B [id number] Aarp Insurance Medigap Part B [id number] .1.333002.3.227. 99.936.9800.0 Self [id number] Medicare Dme Medicare Primary [id number] 2.0.1.822522.3.227. 99.936.9800.0 Self [id number] Medicare Dme Medigap Part B [id number] 2.0.1.200697.3.227.99 .936.9800.0 Self [id number] [employer] Insurance Medigap Part B [id number] .0.1.014608.3.227. 99.936.9800.0 Self [id number] MEDICARE [id number] SP [id number] A MEDICARE C [id number] S [id number] A Medicare Dme Medigap Part B [id number] 2..1.338438.3.227.99 .936.9800.0 Self [id number] [employer]arp Insurance Medigap Part B [id number] 2.0.1.793159.3.227. 99.936.9800.0 Self [id number] Medicare Dme Medigap Part B [id number] 2.16840.1.193576.3.227.99 .936.9800.0 Self [id number] [employer] Insurance Medigap Part B [id number] 2.16.840.1.457350.3.227. 99.936.9800.0 Self [id number] [employer] Commercial [id number] 2.16.840.1.656125.3.227.99.177.6434.[address] [facility] [id number] Aarp/ Health Care Options Medigap Part B [id number] 2.16840.1.363189.3.227.99.177.6434.0 Self [id number] Medicare - [place] Medicare Primary [id number] 2.840.1.1138 83.3.227.99.177.6434.0 Self [id number] Medicare Dme Medigap Part B [id number] 2.0.1.879327.3.227.99 .936.9800.0 Self [id number] [employer]arp Insurance Medigap Part B [id number] 2.0.1.402055.3.227. 99.936.9800.0 Self [id number] Medicare Dme Medigap Part B [id number] 2.840.1.276883.3.227.99 .936.9800.0 Self [id number] [employer]arp Insurance Medigap Part B [id number] 2.0.1.448291.3.227. 99.936.9800.0 Self [id number] [employer]arp Insurance Medigap Part B [id number] 2.0.1.370360.3.227. 99.936.9800.0 Self [id number] Medicare Dme Medicare Primary [id number] 2.16840.1.073521.3.227. 99.936.9800.0 Self [id number] Medicare Dme Medigap Part B [id number] 2.0.1.538402.3.227.99 .936.9800.0 Self [id number] Aarp Insurance Medigap Part B [id number] 2..840.1.799229.3.227. 99.936.9800.0 Self [id number] Medicare Dme Medigap Part B [id number]6.9 800.0 Self Aarp Insurance Medigap Part B [id number] Self Aarp Health Care Options Medigap Part B 2.0.1.308190.3.227.99.6619.38426.0 Self AARP S [id number] S [id number] [facility] P [id number] S [id number] A MEDICARE [id number] SP [id number] AARP HEALTH CARE OPTIONS [id number] SP [id number] BCBS [place]ATN PPO 302/307 [id number] SP [id number] Medicare Part B of [facility] Other 0 [id number] Self 0 Medicare Part B of [facility] Other 0 [id number] Self 0 Medicare Part B of [facility] Other 0 [id number] Self 0 Medicare Part B of [facility] Other 0 [id number] Self 0 Medicare Part B of [facility] Other 0 [id number] Self 0 Medicare Part B of [facility] Other 0 [id number] Self 0 BCBS EMPIRE ADEBAYO DIV BCBS OF [place] [id number] S VYY [id number] [place]STATE MEDICARE DIVISION [id number] S [id number] MEDICARE - [place] [id number] S [id number] BCBS [place] [id number] S VYY [id number] [employer]STATE MEDICARE DIVISION [id number] S [id number] MEDICARE - [place] [id number] S [id number] [facility] HEALTH CARE OPTIONS [id number] S [id number] BCBS [place] WATN PPO 302/307 [id number] SP [id number] EXCELLUS BCBS B [id number] S VYY [id number] MEDICARE C [id number] S [id number] Medicare Part B [facility] Other 0 [id number] Self 0 Medicare Part B [facility] Other 0 [id number] Self 0 N[place] MEDICARE [place] O [id number] S [id number] [place]CE[place]US BCBS B [id number] S VYY [id number] BCBS HMO BLUE [id number] SP VYY [id number] Medicare Part B [facility] Other 0 [id number] Self 0 AAR O [id number] S [id number] [facility] HEALTH CARE OPTIONS [id number] S [id number] [employer] MEDICARE DIVISION [id number] S [id number] MEDICARE [place] [id number] S [id number] [employer] MEDICARE DIVISION [id number] S [id number] MEDICARE [place] [id number] S [id number] Problems, Conditions, and Diagnoses Code Display Name Description Problem Type Effective Dates Data Source(s) R55 Syncope and collapse Syncope and collapse Diagnosis 08/21/2021 10:06:14 AM EDT [facility] I48.0 Paroxysmal atrial fibrillation Paroxysmal atrial fibri llation Diagnosis 07/31/2021 09:14:04 AM EDT [facility] G47.33 Obstructive sleep apnea (adult) (pediatr ic) Obstructive sleep apnea (adult) (pediatr Diagnosis 07/31/2021 09:14:04 AM EDT [facility] E78.5 Hyperlipidemia, unspecified Hyperlipidemia, unspecifie d Diagnosis 07/31/2021 09:14:04 AM EDT [facility] I10 Essential (primary) hypertension Essential (primary) h ypertension Diagnosis 07/31/2021 09:14:04 AM EDT [facility] E11.59 Type 2 diabetes mellitus with other circ ulatory complications Type 2 diabetes mellitus with other circ Diagnosis 07/31/2021 09:14:04 AM EDT [facility] 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 Z79.01 senior care (current) use of anticoagulant s FIRMWARE MANAGER (CURRENT) USE OF ANTICOAGULANTS Diagnosis 04/14/2021 11:19:00 PM [facility] I10 Essential (primary) hypertension ESSENTIAL (PRIMARY) H YPERTENSION Diagnosis 04/14/2021 11:19:00 PM [facility] E11.9 Type 2 diabetes mellitus without complic ations TYPE 2 DIABETES MELLITUS WITHOUT COMPLICATIONS Diagnosis 04/14/2021 11:19:00 PM [facility] rosalino J44.9 Chronic obstructive pulmonary disease, u nspecified CHRONIC OBSTRUCTIVE PULMONARY DISEASE, UNSPECIFIED Diagnosis 04/14/2021 11:19:[address] 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 Diagnosis 11:19:00 PM [facility] L50.9 Urticaria, unspecified URTICARIA, UNSPECIFIED Diagnosi s 04/14/2021 11:19:00 PM [facility] I48.19 Other persistent atrial fibrillation Oth er persistent atrial fibrillation Diagnosis 10/24/2020 12:52:37 PM EST [facility] [id number] Syncope Syncope Problem 05/06/2021 12:00:00 AM ED T [facility] ([facility]) [id number] Pure hypercholesterolemia Pure hypercholesterolemia Pr oblem 12/20/2020 12:00:00 AM EST [facility] [id number] Essential hypertension Essential hypertension Problem 12/20/2020 12:00:00 AM EST [facility] ([facility]) [id number] Pseudophakic - Both Eyes Pseudophakic - Both Eyes Prob [place] 07/10/2020 12:00:00 AM EDT [facility] (Rick Sandoval 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) [id number] Pseudophakic - Both Eyes Pseudophakic - Both Eyes Prob [place] 07/10/2020 12:00:00 AM EDT [facility] (Rick Sandoval MD [facility]) [id number] Pseudophakic - Both Eyes Pseudophakic - Both Eyes Prob [place] 07/10/2020 12:00:00 AM EDT [facility] (Rick Sandoval MD 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) [id number] Pseudophakic - Both Eyes Pseudophakic - Both Eyes Prob [place] 07/10/2020 12:00:00 AM EDT [facility] (Rick Sandoval MD [facility]) [id number] Pseudophakic - Both Eyes Pseudophakic - Both Eyes Prob [place] 07/10/2020 12:00:00 AM EDT [facility] (Rick Sandoval MD [facility]) [id number] Pseudophakic - Both Eyes Pseudophakic - Both Eyes Prob [place] 07/10/2020 12:00:00 AM EDT [facility] (Rick Sandoval MD [facility]) 366.14 Cataract Senile Posterior Subcapsular Po lar Cataract Senile Posterior Subcapsular Polar Problem 04/25/2020 12:00:00 AM EDT - 07/10/2020 12:00:00 AM EDT [facility] (Rick Sandoval MD [facility]) 366.14 Cataract Senile Posterior Subcapsular Po lar Cataract Senile Posterior Subcapsular Polar Problem 04/25/2020 12:00:00 AM EDT - 07/10/2020 12:00:00 AM EDT ALEJA (Rick Sandoval MD [facility]) 366.14 Cataract Senile Posterior Subcapsular Po lar Cataract Senile Posterior Subcapsular Polar Problem 04/25/2020 12:00:00 AM EDT - 07/10/2020 12:00:00 AM EDT ALEJA (Rick Sandoval MD [facility]) 366.14 Cataract Senile Posterior Subcapsular Po lar Cataract Senile Posterior Subcapsular Polar Problem 04/25/2020 12:00:00 AM EDT - 07/10/2020 12:00:00 AM EDT ALEJA (Rick Sandoval MD [facility]) 366.14 Cataract Senile Posterior Subcapsular Po lar Cataract Senile Posterior Subcapsular Polar Problem 04/25/2020 12:00:00 AM EDT - 07/10/2020 12:00:00 AM EDT ALEJA (Rick Sandoval MD [facility]) 366.14 Cataract Senile Posterior Subcapsular Po lar Cataract Senile Posterior Subcapsular Polar Problem 04/25/2020 12:00:00 AM EDT - 07/10/2020 12:00:00 AM EDT ALEJA (Rick Sandoval MD [facility]) 366.14 Cataract Senile Posterior Subcapsular Po lar Cataract Senile Posterior Subcapsular Polar Problem 04/25/2020 12:00:00 AM EDT - 07/10/2020 12:00:00 AM EDT ALEJA (Rick Sandoval MD [facility]) 366.14 Cataract Senile Posterior Subcapsular Po lar Cataract Senile Posterior Subcapsular Polar Problem 04/25/2020 12:00:00 AM EDT - 07/10/2020 12:00:00 AM EDT ALEJA (Rick Sandoval MD [facility]) 366.14 Cataract Senile Posterior Subcapsular Po lar Cataract Senile Posterior Subcapsular Polar Problem 04/25/2020 12:00:00 AM EDT - 07/10/2020 12:00:00 AM EDT ALEJA (Rick Sandoval MD 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) 366.16 Cataract Senile Nuclear Cataract Senile Nuclear Proble m 04/13/2013 12:00:00 AM EDT - 07/10/2020 12:00:00 AM EDT ALEJA (Rick Sandoval MD [facility]) 366.16 Cataract Senile Nuclear Cataract Senile Nuclear Proble m 04/13/2013 12:00:00 AM EDT - 07/10/2020 12:00:00 AM EDT ALEJA (Rick Sandoval MD [facility]) 366.16 Cataract Senile Nuclear Cataract Senile Nuclear Proble m 04/13/2013 12:00:00 AM EDT - 07/10/2020 12:00:00 AM EDT ALEJA (Rick Sandoval MD [facility]) 366.16 Cataract Senile Nuclear Cataract Senile Nuclear Proble m 04/13/2013 12:00:00 AM EDT - 07/10/2020 12:00:00 AM EDT ALEJA (Rick Sandoval MD [facility]) 366.16 Cataract Senile Nuclear Cataract Senile Nuclear Proble m 04/13/2013 12:00:00 AM EDT - 07/10/2020 12:00:00 AM EDT ALEJA (Rick Sandoval MD [facility]) 366.16 Cataract Senile Nuclear Cataract Senile Nuclear Proble 04/13/2013 12:00:00 AM EDT - 07/10/2020 12:00:00 AM EDT ALEJA (Rick Sandoval MD [facility]) 366.16 Cataract Senile Nuclear Cataract Senile Nuclear Proble 04/13/2013 12:00:00 AM EDT - 07/10/2020 12:00:00 AM EDT ALEJA (Rick Sandoval MD [facility]) 366.16 Cataract Senile Nuclear Cataract Senile Nuclear Proble 04/13/2013 12:00:00 AM EDT - 07/10/2020 12:00:00 AM EDT ALEJA (Rick Sandoval MD [facility]) 366.16 Cataract Senile Nuclear Cataract Senile Nuclear Proble 04/13/2013 12:00:00 AM EDT - 07/10/2020 12:00:00 AM EDT ALEJA (Rick Sandoval MD [facility]) Surgeries/Procedures Procedure Description Date Indications Data Source(s) ECG ROUTINE ECG W/LEAST 12 LDS W/I&R <td>POCT AMB EKG</td><td>Routine</td><td>08/21/2021 11:05 AM EDT</td><td> Syncope and collapse</td><td> </td> 08/21/2021 11:05:00 AM EDT Syncope and collapse [facility] Syncope and collapse BLOOD COUNT COMPLETE AUTO&AUTO DIFRNTL WBC COUNT <td>C BC AND DIFFERENTIAL</td><td>Routine</td><td>07/25/2021</td><td></td><td> </td> 07/25/2021 12:00:00 AM EDT [facility] THYROID STIMULATING HORMONE TSH <td>TSH</td><td>Routine</td><td>07/25/2021</td><td></td><td> </td> 07/25/2021 12:00:00 AM EDT [facility] HEMOGLOBIN GLYCOSYLATED A1C <td>HEMOGLOBIN A1C</td><td>Routine</td><td>07/25/2021</td><td></td><td> </td> 07/25/2021 12:00:00 AM EDT [facility] HEPATIC FUNCTION PANEL <td>HEPATIC FUNCTION PANEL</td><td>Routine</td><td>07/25/2021</td><td></td><td> </td> 07/25/2021 12:00:00 AM EDT [facility] LIPID PANEL <td>LIPID PANEL</td><td>Rout ine</td><td>07/25/2021</td><td></td><td> </td> 07/25/2021 12:00:00 AM EDT [facility] BASIC METABOLIC PANEL CALCIUM TOTAL <td>BASIC METABOLI C PANEL</td><td>Routine</td><td>07/25/2021</td><td></td><td> </td> 07/25/2021 12:00:00 AM EDT [facility] ECG ROUTINE ECG W/LEAST 12 LDS W/I&R <td>POCT AMB EKG</td><td>Routine</td><td>06/18/2021 1:23 PM EDT</td><td> Paroxysmal atrial fibrillation</td><td> </td> 06/18/2021 01:23:00 PM EDT Paroxysmal atrial fibrillation [facility] Paroxysmal atrial fibrillation OFFICE OUTPATIENT VISIT 25 MINUTES 06/17/2021 12:00:00 AM EDT [facility] ([facility], ) EEG Complete STD Phys/QHP>36 HR<60 HR W/O Video 2020 12:00:00 AM EDT [facility] ([facility], ) EEG Complete STD Phys/QHP>60 HR<84 HR W/O Video 2020 12:00:00 AM EDT [facility] ([facility], ) TSTG ANS FUNCJ CARDIOVAGAL INNERVAJ PARASYMP 12:00:00 AM EDT [facility] ([facility], ) TESTING AUTONOMIC NERVOUS SYSTEM FUNCTION 06/07/2021 1 2:00:00 AM EDT [facility] ([facility], ) OFFICE OUTPATIENT NEW 45 MINUTES 05/06/2021 12:00:00 A M EDT [facility] ([facility] ) Intermediate Eye Exam Established Patient Intermediate Eye Exam Established Patient 05/02/2021 12:00:00 AM EDT ALEJA (Ryan roque Sandoval MD [facility]) BLOOD COUNT COMPLETE AUTO&AUTO DIFRNTL WBC COUNT <td>C BC AND DIFFERENTIAL</td><td>Routine</td><td>02/15/2021</td><td></td><td> </td> 02/15/2021 12:00:00 AM EDT [facility] BASIC METABOLIC PANEL CALCIUM TOTAL <td>BASIC METABOLI C PANEL</td><td>Routine</td><td>02/15/2021</td><td></td><td> </td> 02/15/2021 12:00:00 AM EDT [facility] BASIC METABOLIC PANEL CALCIUM TOTAL <td>BASIC METABOLI C PANEL</td><td>Routine</td><td>02/14/2021</td><td></td><td> </td> 02/14/2021 12:00:00 AM EDT [facility] TROPONIN QUANTITATIVE <td>TROPONIN I</td><td>Routine</td><td>02/13/2021</td><td></td><td> </td> 02/13/2021 12:00:00 AM EDT [facility] THYROID STIMULATING HORMONE TSH <td>TSH</td><td>Routine</td><td>02/13/2021</td><td></td><td> </td> 02/13/2021 12:00:00 AM EDT [facility] HEPATIC FUNCTION PANEL <td>HEPATIC FUNCTION PANEL</td><td>Routine</td><td>02/13/2021</td><td></td><td> </td> 02/13/2021 12:00:00 AM T [facility] BASIC METABOLIC PANEL CALCIUM TOTAL <td>BASIC METABOLI C PANEL</td><td>Routine</td><td>02/13/2021</td><td></td><td> </td> 02/13/2021 12:00:00 AM T [facility] Needle electromyography, each extremity, with related paraspinal areas, when performed, done with nerve conduction, amplitude and latency/velocity study; complete, five or more muscles studied, innervated by three or more nerves or four or more spinal levels (list separately in addition to the code for primary procedure). 12/20/2020 12:00:00 AM EST SHOBHA T ([facility] ) Nerve Conduction 11-12 Studies 12/20/2020 12:00:00 AM EST [facility] ([facility]) ECG ROUTINE ECG W/LEAST 12 LDS W/I&R <td>POCT AMB EKG</td><td>Routine</td><td>10/24/2020 1:59 PM EST</td><td> Paroxysmal atrial fibrillation</td><td> </td> 10/24/2020 06:59:00 PM EST Paroxysmal atrial fibrillation [facility] Paroxysmal atrial fibrillation RADEX SPINE CRV COMPL W/OBLQ&FLEX&/XTN STDS 09/10/2020 12:00:00 AM EDT [facility] ([facility]) RADEX SHOULDER COMPLETE MINIMUM 2 VIEWS 09/10/2020 12: 00:00 AM EDT [facility] ([facility]) Immunization: Flublok Quadrivalent (18 years & older) 0.5mL IM (Influenza) 08/21/2020 12:00:00 AM EDT eCW1 ([facility]) Surgical / procedural history Surgical / procedural history 07/26/2020 12:00:00 AM EDT ALEJA (Rick Sandoval MD [facility]) Extracapsular extraction of lens (procedure) History o f extracapsular cataract extraction PCIOL OS 06/11/[address] Stout ~PCIOL OD 06/25/[address] Stout 07/26/2020 12:00:00 AM EDT ALEJA (Ryan Sandoval MD [facility]) Extracapsular extraction of lens (procedure) History o f extracapsular cataract extraction PCIOL OS by Dr. Stout 06/11/2020 ~PCIOL OD by Dr. Stout 06/25/2020 07/10/2020 12:00:00 AM EDT ALEJA (Ryan Sandoval MD [facility]) No surgical / procedural history No surgical / procedural hi story 07/10/2020 12:00:00 AM EDT ALEJA (Rick Sandoval MD [facility]) Results ID Date Data Source LIPID PANEL (CARDIAC RISK) 07/25/2021 12:00:00 AM EDT eCW1 ( [facility]) Name Value Range Interpretation Code Description Data Leigh rce(s) Supporting Document(s) Triglyceride [Mass/volume] in Serum or Plasma by calculation 182 <150 TRIGLYCERIDES LEVEL eCW1 ([facility]) Cholesterol [Moles/volume] in Serum or Plasma 93 <200 CHOLESTEROL LEVEL eCW1 ([facility]) Cholesterol in HDL [Moles/volume] in Serum or Plasma 37 >40 HDL CHOLESTEROL eCW1 ([facility]) 56 NON-HDL-C eCW1 ([facility]) Cholesterol in LDL [Mass/volume] in Serum or Plasma by calculation 20 <100 LDL CHOLESTEROL eCW1 ([facility]) 2.513 <5 CHOLESTEROL RISK RATIO eCW1 ([facility]) ID Date Data Source [id number] 07/25/2021 12:00:00 AM EDT eCW1 (Count includes the [facility]) Name Value Range Interpretation Code Description Data Leigh rce(s) Supporting Document(s) Hemoglobin A1c/Hemoglobin.total in Blood 6.3 HEMOGLOBIN A1c eCW1 ([facility]) ID Date Data Source FREE T4 & TSH PANEL 07/25/2021 12:00:00 AM EDT eCW1 (Count includes the [facility]) Name Value Range Interpretation Code Description Data Leigh rce(s) Supporting Document(s) 2.470 0.358-3.740 THYROID STIMULATING HORM ONE eCW1 ([facility]) 1.03 0.76-1.46 FREE T4 eCW1 ([facility]) ID Date Data Source Comprehensive Metabolic Profile (CMP) 07/25/2021 12:00:00 AM EDT eCW1 ([facility]) Name Value Range Interpretation Code Description Data Leigh rce(s) Supporting Document(s) 1.42 0.70-1.30 CREATININE FOR GFR eCW1 ([facility]) 125 70-100 GLUCOSE, FASTING eCW1 (Count includes the [facility]) 29 7-18 BLOOD UREA NITROGEN eCW1 ([facility]) 50.0 >35 GLOMERULAR FILTRATION RATE eCW 1 ([facility]) 4.0 3.5-5.1 POTASSIUM SERUM eCW1 ([facility]) 142 136-145 SODIUM LEVEL eCW1 ([facility]) 109 98-107 CHLORIDE LEVEL eCW1 ([facility]) 26 21-32 CARBON DIOXIDE LEVEL eCW1 ([facility]) 8.8 8.8-10.2 CALCIUM LEVEL eCW1 ([facility]) 27 7-37 AST/SGOT eCW1 ([facility]) 106 45-117 ALKALINE PHOSPHATASE eCW1 ([facility]) 31 12-78 ALT/SGPT eCW1 ([facility]) 6.6 6.4-8.2 TOTAL PROTEIN eCW1 ([facility]) 0.5 0.2-1.0 BILIRUBIN,TOTAL eCW1 ([facility]) 1.1 ALBUMIN/GLOBULIN RATIO eCW1 ([facility]) 3.4 3.2-5.2 ALBUMIN eCW1 ([facility]) ID Date Data Source CBC - Complete Blood Count 07/25/2021 12:00:00 AM EDT eCW1 ( [facility]) Name Value Range Interpretation Code Description Data Leigh rce(s) Supporting Document(s) 5.8 4.0-10.0 WHITE BLOOD COUNT eCW1 ([facility]) 9.8 13.5-17.5 HEMOGLOBIN eCW1 ([facility]) 3.49 4.30-6.10 RED BLOOD COUNT eCW1 ([facility]) 32.0 42.0-52.0 HEMATOCRIT eCW1 ([facility]) 28.1 27.0-33.0 MEAN CORPUSCULAR HEMOGLOB IN eCW1 ([facility]) 91.7 80.0-96.0 MEAN CORPUSCULAR VOLUME e CW1 ([facility]) 127 150-450 PLATELET COUNT, AUTOMATED eCW1 ([facility]) 15.2 11.5-14.5 RED CELL DISTRIBUTION WID TH eCW1 ([facility]) 30.6 32.0-36.5 MEAN CORPUSCULAR HGB CONC eCW1 ([facility]) ID Date Data Source [id number] 04/15/2021 12:51:00 AM EDT [facility] l Patient: SHAHEED ULRICH [facility]VisitID: [id number] [place] [address] [phone], MRegistration Date/Time: 04/14/2021 22:49 Weight:90.7 kg (S). Height/Length:71 inches (S). BMI:27.9 PAST HISTORYProblems:Benign Prostatic Hypertrophy [Chronic].Neuropathy [Chronic].Gastroesophageal Reflux Disease [Chronic].Hypertension [Chronic].Lung Disease [Chronic].Emphysema [Chronic].COPD - Chronic Obstructive Pulmonary Disease [Chronic].Diabetes Mellitus [Chronic]. (Type 2)A-fib [Intermittent].Bronchitis [Resolved]. Additional Surgeries:Colonoscopy. Medications:Eliquis Oral unknown , daily every AM, every PM, last dose today this am (has only taken this am dose ).Triamterene-HCTZ Oral (Tablet 37.5-25 mg) 1/2 tablet, daily every AM, last dose today .Ascorbic Acid Oral (Tablet 500 mg) 1 tablet, daily every AM, last dose today .Vitamin c Oral (Tablet 1000 mg) 1 tablet, daily every AM, last dose today metFORMIN HCl Oral (Tablet 500 mg) 1 tablet, daily every AM, last dose today .Vitamin D3 Oral (Tablet 25 MCG (1000 UT)) 1 tablet, daily every AM, last dose today .Tamsulosin HCl Oral (Capsule 0.4 mg) 1 capsule, daily every AM, last dose today.Gabapentin Oral (Capsule 300 mg) 3 capsules, daily at bedtime, last dose last night .Rosuvastatin Calcium Oral (Tablet 40 mg) 1 tablet, daily every PM, last dose this afternoon .Montelukast Sodium Oral (Tablet 10 mg) 1 tablet, daily, last dose today this afternoon.PreserVision AREDS 2+Multi Vit Oral 1 capsule , daily every AM, last dose today .Centrum Silver Ultra Mens Oral today , daily, last dose this am.Omeprazole Oral 20 mg, daily every AM, last dose this am.Potassium Chloride Oral 20 meq, daily every PM, last dose this afternoon . Allergies:Aspirin.(nausea)Sulfa Antibiotics. (unknown). INSTRUCTIONSYour Current Medications: Your current home medications have been reviewed. CONTINUE TAKING THE FOLLOWING MEDICATIONS:Ascorbic Acid Oral : Tablet 500 mg, 1 tablet daily, Last: today, every AM. Centrum Silver Ultra Mens Oral : today daily, Last: this am. Eliquis Oral : unknown daily, Last: today this am, every AM, every PM, has only taken this am dose. Gabapentin Oral : Capsule 300 mg, 3 capsules daily, Last: last night, at bedtime. metFORMIN HCl Oral : Tablet 500 mg, 1 tablet daily, Last: today, every AM. Montelukast Sodium Oral : Tablet 10 mg, 1 tablet daily, Last: today this afternoon. Omeprazole Oral : 20 mg daily, Last: this am, every AM. Potassium Chloride Oral : 20 meq daily, Last: this afternoon, every PM. Pre serVision AREDS 2+Multi Vit Oral : 1 capsule daily, Last: today, every AM. Rosuvastatin Calcium Oral : Tablet 40 mg, 1 tablet daily, Last: this afternoon, every PM. Tamsulosin HCl Oral : Capsule 0.4 mg, 1 capsule daily, Last: today, every AM. Triamterene-HCTZ Oral : Tablet 37.5-25 mg, 1/2 tablet daily, Last: today, every AM. Vitamin c Oral : Tablet 1000 mg, 1 tablet daily, Last: today, every AM. Vitamin D3 Oral : Tablet 25 MCG (1000 UT), 1 tablet daily, Last: today, every AM. (Electronically signed by Marizol Gasca, P.ACristina 04/15/2021 00:49) Name Value Range Interpretation Code Description Data Leigh rce(s) Supporting Document(s) ID Date Data Source [id number] 02/13/2021 02:25:00 PM EDT [facility] Name Value Range Interpretation Code Description Data Leigh rce(s) Supporting Document(s) SARS-CoV-2 (COVID 19) NEGATIVE - SARS-CoV-2 (COVID19) [facility] This lab was ordered by [facility] a nd reported by [facility]. ID Date Data Source [id number] 02/01/2021 10:50:00 AM EDT [facility] Name Value Range Interpretation Code Description Data Leigh rce(s) Supporting Document(s) Glomerular Filtration Rate 41.2 [facility] ([facility]) <content>Units are mL/min/1.73 m2</content>
<content></content>
<content>Chronic Kidney Disease Staging per NKF:</content>
<content></content>
<content>Stage I & II GFR >=60 Normal to Mildly Decreased</content>
<content>Stage III GFR 30-59 Moderately Decreased</content>
<content>Stage IV GFR 15-29 Severely Decreased</content>
<content>Stage V GFR <15 Very Little GFR Left</content>
<content>ESRD GFR <15 on WHEEL CUTTER</content>
<content></content> Creatinine For GFR 1.68 mg/dL 0.70-1.30 [facility] ([facility]) ID Date Data Source [id number] 02/01/2021 10:50:00 AM EDT [facility] ([facility]) Name Value Range Interpretation Code Description Data Leigh rce(s) Supporting Document(s) Urea nitrogen [Mass/volume] in Serum or Plasma 33 mg/dL 7-18 [facility] ([facility]) ID Date Data Source [id number] 09/26/2020 12:00:00 AM EST [facility] Saleem TRINH Patient Name: SHAHEED ULRICH[address] [place] [address] Date of : 1930te 2 Date of Exam: 09/26/2020CALLI Donahue [id number]#: Fax: [phone] EXAM: MRI SHOULDER LEFT W/O CONTRASTCLINICAL INFORMATION: Pain and decreased baffq-yj-fnzduw x 2 weeks.There are no prior left shoulder MRI's for comparison.3T multiplanar MRI imaging of the left shoulder was obtained using varioussequences.There is moderate hypertrophic degenerative change seen involving theacromioclavicular joint with T2 hypersignal within the AC joint. There ispatchy and linear T2 hypersignal seen throughout the supraspinatus tendonand particularly along the anterior leading edge where there is significantirregularity of both subbursal and articular surfaces. There is nodefinite supraspinatus musculotendinous retraction, however, there issignificant appearing supraspinatus muscle atrophy. The acromion processis Type III. There is patchy and linear T2 hypersignal seen in thesubscapularis; and particularly the infraspinatus tendons. Patchy [id number] is seen in the infraspinatus musculotendinous junction and inthe supraspinatus muscle belly. There is coracohumeral and coracoacromialligamentous thickening. Linear hypersignal changes are seen in thesuperior labrum which appear to be tkxudksi-gv-vsjvisplt. There is glenoidand humeral head chondromalacia. The biceps tendon is seen within thebicipital groove. There is increased fluid seen in the subdeltoid bursa.IMPRESSION:1. AC joint DJD with edema, Type III acromion process, and ligamentousthickening, as described above, consistent with the clinical diagnosis ofimpingement syndrome.2. There is advanced supraspinatus tendinitis/tendinosis and I suspectthere is a full thickness partial tear along the anterior leading edge.This is seen in conjunction with supraspinatus muscular edema and muscularatrophy.3. There is subscapularis and infraspinatus tendinitis/tendinosis withinfraspinatus muscular edema. Partial tears of the supraspinatus andinfraspinatus tendons cannot be ruled out.4. There is fluid in the subcoracoid recess and fluid in the region of thesubdeltoid bursa.5. There are labral signal changes, as described above, suspicious for aSLAP tear. This could be confirmed with shoulder MRI arthrography ifclinically relevant.6. There is early cystic degenerative change seen in the superolateralhumeral head subjacent to the insertion of the supraspinatus tendon.7. Other findings as described above.Accredited by the [employer] in MR.SANJIV aGrcia/Shirley you for referring SHAHEDE ULRICH to our office.Electronically Signed - NOAM SHEEHAN DO 09/26/20 14:32 Name Value Range Interpretation Code Description Data Leigh rce(s) Supporting Document(s) ID Date Data Source [id number] 09/26/2020 12:00:00 AM [facility] Saleem TRINH Patient Name: SHAHEED ULRICH[address] [facility] Date of : 1930te 2 Date of Exam: 09/26/2020CALLI Donahue [id number]#: Fax: [phone] EXAM: MRI CERVICAL SPINE WITHOUT&WITH CONTRASTPROCEDURE INFORMATION:Exam: MR Cervical Spine Without ContrastExam date and time: 09/26/2020 11:00 AM Age: 89 years oldClinical indication: Neck painTECHNIQUE: Imaging protocol: Multiplanar magnetic resonance images of thecervical spine without contrast.COMPARISON: No relevant prior studies available.FINDINGS:Vertebrae: No acute fracture is identified. There is mild re versal of thenormal cervical lordosis. There are 8 mm low T1 and high T2 signal lesionswithin the C4 and C5 vertebral bodies. These are nonspecific, but couldrepresent lipid poor hemangioma is. Malignancy or metastatic disease is notentirely excluded, particularly if the patient has a history of malignancy.Clinical correlation is recommended.Spinal cord: The cervical cord is of normal signal intensity and size.C2-C3: There is fusion of the facets. There is no significant spinal canalor neural foraminal stenosis. C3-C4: There is a broad-based posterior discosteophyte complex with a small superimposed shallow right paracentral discprotrusion. Moderate uncinate spurring, severe facet arthropathy, andthickening of the ligamentum flavum is also noted. This is causing mildspinal canal stenosis and moderate/severe bilateral neural foraminalnarrowing.C4-C5: There is minimal broad-based posterior disc bulging, mild uncinatespurring, and severe facet arthropathy. There is no significant spinalcanal stenosis. Moderate left and mild right neural foraminal narrowing ispresent.C5-C6: There is a tiny shallow central disc protrusion, severe facetarthropathy, and fusion of the left facets. There is no spinal can alstenosis. Mild left and moderate right neural foraminal narrowing ispresent.C6-C7: There is a shallow broad-based posterior disc osteophyte complex,moderate uncinate spurring, and mild facet arthropathy. There is no spinalcanal stenosis. Moderate left and minimal right neural foraminal narrowingis present.C7-T1: There is marked left uncinate spurring, mild right uncinatespurring, and fusion of the left facets. This is causing moderate/severeleft neural foraminal narrowing. There is no spinal canal or rightforaminal stenosis.Vertebral arteries: Expected flow voids in the vertebral arteries.Soft tissues: The prevertebral soft tissues are within normal limits. Thereis a nonspecific 10 mm focus of high T2 signal in the right posteriorparaspinous musculature at the C5-C6 level. A small amount of fluid or asmall nonspecific intramuscular lesion is possible.IMPRESSION:1. Small nonspecific lesions in the C4 and C5 vertebral bodies as discussedabove2. Marked degenerative changes of the cervical spineThank you for allowing us to participate in the care of your patient.Dictated and Authenticated by: Lamonte Taylor MD 09/26/2020 3:00 PMEastern Time ([place] & [place])VradV/jmcThanbrielle tolentino for referring SHAHEED ULRICH to our office.Electronically Signed - [facility] 09/26/20 15:30 Name Value Range Interpretation Code Description Data Leigh rce(s) Supporting Document(s) Procedure Social History Code Duration Value Status Description Data Source(s ) Alcohol intake 08/21/2021 12:00:00 AM EDT Ex-drinker (finding) comp leted Ex- drinker (finding) [facility] Smoking 07/25/2021 12:00:00 AM EDT Former Smoker completed Former Smoker eCW1 ([facility]) Smoking 07/25/2021 12:00:00 AM EDT Former Smoker completed Former Smoker eCW1 ([facility]) Smoking 07/02/2021 09:32:09 PM EDT Ex-smoker (finding) complet ed Ex-smoker (finding) ALEJA (Rick Sandoval [facility]) Smoking 07/02/2021 09:31:18 PM EDT Ex-smoker (finding) complet ed Ex-smoker (finding) ALEJA (Rick Sandoval [facility]) Smoking 07/02/2021 09:28:12 PM EDT Ex-smoker (finding) complet ed Ex-smoker (finding) ALEJA (Rick Sandoval MD [facility]) Smoking 07/02/2021 09:27:10 PM EDT Ex-smoker (finding) complet ed Ex-smoker (finding) ALEJA (Rick Sandoval MD [facility]) Smoking 07/02/2021 09:25:20 PM EDT Ex-smoker (finding) complet ed Ex-smoker (finding) ALEJA (Rick Sandoval MD [facility]) Alcohol intake 06/18/2021 12:00:00 AM EDT Ex-drinker (finding) comp leted Ex- drinker (finding) [facility] Smoking 04/03/2021 12:00:00 AM EDT Former Smoker completed Former Smoker eCW1 ([facility]) Smoking 04/03/2021 12:00:00 AM EDT Former Smoker completed Former Smoker eCW1 ([facility]) Smoking 02/21/2021 12:00:00 AM EDT Former Smoker completed Former Smoker eCW1 ([facility]) Alcohol intake 10/24/2020 12:00:00 AM EST Yes completed [facility] Smoking 10/24/2020 12:00:00 AM EST Former smoker completed Former smoker [facility] Smoking 10/03/2020 12:00:00 AM EST Former Smoker completed Former Smoker eCW1 ([facility]) Smoking 10/03/2020 12:00:00 AM EST Former Smoker completed Former Smoker eCW1 ([facility]) Smoking 10/03/2020 12:00:00 AM EST Former Smoker completed Former Smoker eCW1 ([facility]) Smoking 10/03/2020 12:00:00 AM EST Former Smoker completed Former Smoker eCW1 ([facility]) Smoking 08/21/2020 12:00:00 AM EDT Former Smoker completed Former Smoker eCW1 ([facility]) Smoking 08/21/2020 12:00:00 AM EDT Former Smoker completed Former Smoker eCW1 ([facility]) Smoking 08/21/2020 12:00:00 AM EDT Former Smoker completed Former Smoker eCW1 ([facility]) Smoking 07/26/2020 12:38:46 PM EDT Ex-smoker (finding) complet ed Ex-smoker (finding) ALEJA (Rick Sandoval MD [facility]) Vital Signs ID Date Data Source UNK Name Value Range Interpretation Code Description Data Source(s) Systolic blood pressure 108 mm[Hg] 108 mm[Hg] [facility] Diastolic blood pressure 62 mm[Hg] 62 mm[Hg] [facility] Heart rate 82 /min 82 /min [facility] Body height 180.3 cm 180.3 cm [facility] Body weight 90.266 kg 90.266 kg [facility] Body mass index (BMI) [Ratio] 27.75 kg/m2 27.75 kg/m2 [facility] Oxygen saturation in Arterial blood by Pulse oximetry 96 % 96 % [facility] Body weight 89.359 kg 89.359 kg [facility] Systolic blood pressure 110 mm[Hg] 110 mm[Hg] [facility] Diastolic blood pressure 70 mm[Hg] 70 mm[Hg] [facility] Body mass index (BMI) [Ratio] 27.48 kg/m2 27.48 kg/m2 [facility] Heart rate 74 /min 74 /min [facility] Oxygen saturation in Arterial blood by Pulse oximetry 94 % 94 % [facility] Body weight 196 [lb_av] 196 [lb_av] eCW1 ([facility]) Body height 71 [in_i] 71 [in_i] eCW1 (Count includes the [facility]) Body mass index (BMI) [Ratio] 27.33 kg/m2 27.33 kg/m2 W1 ([facility]) Heart rate 81 /min 81 /min eCW1 ([facility]) Respiratory rate 18 /min 18 /min eCW1 ([facility]) Body temperature 97.0 [degF] 97.0 [degF] eCW1 ( [facility]) Systolic blood pressure 132 mm[Hg] 132 mm[Hg] e CW1 ([facility]) Diastolic blood pressure 70 mm[Hg] 70 mm[Hg] eCW1 ([facility]) Systolic blood pressure 88 mm[Hg] 88 mm[Hg] [facility] Diastolic blood pressure 50 mm[Hg] 50 mm[Hg] [facility] Heart rate 76 /min 76 /min [facility] Body height 180.3 cm 180.3 cm [facility] Body weight 88.905 kg 88.905 kg [facility] Body mass index (BMI) [Ratio] 27.34 kg/m2 27.34 kg/m2 [facility] Oxygen saturation in Arterial blood by Pulse oximetry 96 % 96 % [facility] Systolic blood pressure 130 mm[Hg] 130 mm[Hg] M EDENT ([facility]) Diastolic blood pressure 80 mm[Hg] 80 mm[Hg] MEDENT ([facility]) Heart rate 80 /min 80 /min MEDENT ([facility]) Respiratory rate 20 /min 20 /min MEDENT ( [facility] Body weight 201 [lb_av] 201 [lb_av] eCW1 ([facility]) Body height 71 [in_i] 71 [in_i] eCW1 (Count includes the [facility]) Body mass index (BMI) [Ratio] 28.03 kg/m2 28.03 kg/m2 eCW1 ([facility]) Heart rate 82 /min 82 /min eCW1 ([facility]) Respiratory rate 18 /min 18 /min eCW1 ([facility]) Body temperature 97.6 [degF] 97.6 [degF] eCW1 ( [facility]) Systolic blood pressure 126 mm[Hg] 126 mm[Hg] e CW1 ([facility]) Diastolic blood pressure 76 mm[Hg] 76 mm[Hg] eCW1 ([facility]) Body weight 199 [lb_av] 199 [lb_av] eCW1 ([facility]) Body height 71 [in_i] 71 [in_i] eCW1 (Count includes the [facility]) Body mass index (BMI) [Ratio] 27.75 kg/m2 27.75 kg/m2 W1 ([facility]) Heart rate 86 /min 86 /min eCW1 ([facility]) Respiratory rate 18 /min 18 /min eCW1 ([facility]) Body temperature 98.5 [degF] 98.5 [degF] eCW1 ( [facility]) Systolic blood pressure 118 mm[Hg] 118 mm[Hg] e CW1 ([facility]) Diastolic blood pressure 72 mm[Hg] 72 mm[Hg] eCW1 ([facility]) Body weight 185.00 [lb_av] 185.00 [lb_av] MEDEN T ([facility]) Body mass index (BMI) [Ratio] 25.8 kg/m2 25.8 k g/m2 MEDENT ([facility]) Body temperature 97.3 [degF] 97.3 [degF] MEDENT ([facility]) Body height 71 [in_i] 71 [in_i] MEDENT ([facility]) 5'11" Body mass index (BMI) [Ratio] 25.8 kg/m2 25.8 k g/m2 MEDENT ([facility]) Body temperature 97.7 [degF] 97.7 [degF] MEDENT ([facility]) Body height 71 [in_i] 71 [in_i] MEDENT ([facility]) 5'11" Body weight 185.00 [lb_av] 185.00 [lb_av] MEDEN T ([facility]) Heart rate 60 /min 60 /min [facility] Body height 180.3 cm 180.3 cm [facility] Body weight 91.627 kg 91.627 kg [facility] Body mass index (BMI) [Ratio] 28.17 kg/m2 28.17 kg/m2 [facility] Oxygen saturation in Arterial blood by Pulse oximetry 99 % 99 % [facility] Systolic blood pressure 108 mm[Hg] 108 mm[Hg] [facility] Diastolic blood pressure 70 mm[Hg] 70 mm[Hg] [facility] Body weight [lb_av] eCW1 (Count includes the [facility]) Body height 71 [in_i] 71 [in_i] W1 (Count includes the [facility]) Body mass index (BMI) [Ratio] 25.80 kg/m2 25.80 kg/m2 eCW1 ([facility]) Systolic blood pressure 120 mm[Hg] 120 mm[Hg] e CW1 ([facility]) Diastolic blood pressure 80 mm[Hg] 80 mm[Hg] eCW1 ([facility]) Body weight 200 [lb_av] 200 [lb_av] W1 ([facility]) Heart rate 83 /min 83 /min W1 ([facility]) Body height 71 [in_i] 71 [in_i] eCW1 (Count includes the [facility]) Body mass index (BMI) [Ratio] 27.89 kg/m2 27.89 kg/m2 eCW1 ([facility]) Body temperature 98.0 [degF] 98.0 [degF] eCW1 ( [facility]) Systolic blood pressure 138 mm[Hg] 138 mm[Hg] e CW1 ([facility]) Diastolic blood pressure 78 mm[Hg] 78 mm[Hg] eCW1 ([facility]) Respiratory rate 20 /min 20 /min eCW1 ([facility]) Patient Treatment Plan of Care Planned Activity Planned Date Details Description Data Source (s) midodrine hydrochloride 2.5 MG Oral Tablet 08/21/2021 12:00:00 AM E DT [facility] tramadol hydrochloride 50 MG Oral Tablet 01/22/2021 12:00:00 AM EST eCW1 ([facility]) loteprednol etabonate 5 MG/ML / Tobramyc in 3 MG/ML Ophthalmic Suspension [Zylet] 07/10/2020 12:00:[address] (Rick Sandoval MD [facility]) Inveltys 1% Ophthalmic Suspension 06/06/2020 12:00:00 AM EDT ALEJA (Rick Sandoval MD [facility]) besifloxacin 6 MG/ML Ophthalmic Suspension [Besivance] 06/06/2020 12:00:00 AM EDT ALEJA (Rick Sandoval MD [facility]) BromSite 0.075% Ophthalmic Solution 06/06/2020 12:00:00 AM EDT ALEJA (Rick Sandoval MD [facility]) Omeprazole 20 MG Delayed Release Oral Tablet 08/31/2014 12:00:00 AM EDT [facility] Multiple Vitamin (MULTIVITAMIN) capsule 08/31/2014 12:00:00 AM EDT [facility] Ascorbic Acid 500 MG Oral Tablet 08/31/2014 12:00:00 AM EDT [facility] ipratropium (ATROVENT) 0.03 % nasal spray 08/31/2014 12:00:00 AM ED T [facility] Chlorthalidone 25 MG Oral Tablet [facility] Gabapentin 10 % CREA [facility] Lisinopril 1 MG/ML SOLN [facility] potassium chloride in dextrose solution [facility] cetirizine hydrochloride 10 MG Oral Capsule [Zyrtec] [facility] apixaban 2.5 MG Oral Tablet [facility] Multiple Vitamins-Minerals (PRESERVISION AREDS 2 PO) [facility] Ipratropium Marcellus 0.2 MG/ML Inhalant Solution [facility] Hydrochlorothiazide 25 MG / Triamterene 37.5 MG Oral Tablet [facility] apixaban 2.5 MG Oral Tablet [facility] Lisinopril 40 MG Oral Tablet [facility] Chlorthalidone 25 MG Oral Tablet [facility] Tamsulosin hydrochloride 0.4 MG Oral Capsule [facility]
--- OUTSIDE RECORDS SUMMARY | 2021-08-28 15:15 | CCD | Continuity of Care Document ---
Author Author Janine/Chirag BELLO Organization Unknown Address [address] [place] [id number] Phone [phone] Care Team Providers Care Enamel Shader Name Role Phone Que Merlos M.D. AUTM [phone] Problems Active Problems Provider Date Syncope Lucy Gleason M.D. Onset: 05/06/2021 Social History Type Date Description Comments Sex Unknown Allergies, Adverse Reactions, Alerts Description No Information Available Medications Description No Information Available Immunizations Description No Information Available Vital Signs Description No Information Available Results Description No Information Available Procedures Date Code Description Status 06/07/2021 21814 Sympathetic Skin Responses Compl eted 06/07/2021 65189 Test Autonomic Nervous System, C ardiovagal Innervation Completed 05/06/2021 46218 Office/Outpatient New Moderate M DM 45-59 Minutes Completed Medical Devices Description No Information Available Encounters Type Date Location Provider Dx Diagnosis Office Visit 05/06/2021 2:00p Main office - [place] Lucy Gleason M.D. R55 Syncope and collapse R41.82 Altered mental status, unspe cified S06.0x0A Concussion without loss of c onsciousness, initial encounter Assessments Date Code Description Provider 06/07/2021 R55 Syncope and collapse Lucy shepherd M.D. 06/07/2021 R55 Syncope and collapse Ans/VS 05/06/2021 R55 Syncope and collapse Lucy shepherd M.D. 05/06/2021 R41.82 Altered mental status, unspecifi ed Lucy Gleason M.D. 05/06/2021 S06.0x0A Concussion without loss of consc iousness, initial encounter Lucy Gleason M.D. Plan of Treatment Future Appointment(s):* 06/17/2021 2:00 pm - Jazmin Culp P.A.-C. at [facility] * 06/14/2021 11:15 am - EEG at [facility] Functional Status Description No Information Available Mental Status Description No Information Available Referrals Description No Information Available
--- OUTSIDE RECORDS SUMMARY | 2021-08-28 15:15 | CCD | Continuity of Care Document ---
Author Author Chirag MOYA Organization Unknown Address [address] [address] Phone [phone] Care Team Providers Care Plastic Boat Buffer Name Role Phone Que Merlos M.D. AUTM [phone] Problems Active Problems Provider Date Syncope Lucy Gleason M.D. Onset: 05/06/2021 Social History Type Date Description Comments Sex Unknown Allergies, Adverse Reactions, Alerts Description No Information Available Medications Description No Information Available Immunizations Description No Information Available Vital Signs Description No Information Available Results Description No Information Available Procedures Date Code Description Status 06/07/2021 35207 Sympathetic Skin Responses Compl eted 06/07/2021 19862 Test Autonomic Nervous System, C ardiovagal Innervation Completed 05/06/2021 11030 Office/Outpatient New Moderate M DM 45-59 Minutes Completed Medical Devices Description No Information Available Encounters Type Date Location Provider Dx Diagnosis Office Visit 05/06/2021 2:00p Main office - [place] Lucy Gleason M.D. R55 Syncope and collapse [...] 2:00 pm - Jazmin Culp P.A.-C. at [facility] Functional Status Description No Information Available Mental Status Description No Information Available Referrals Description No Information Available
[2021-08-28 15:26] LABS: BASO % 0.4 % (0.0-1.0); EOS # 0.1 10^3/uL (0.0-0.5); EOS % 1.3 % (0.0-3.0); HEMATOCRIT 24.8 % (42.0-52.0); HEMOGLOBIN 7.5 g/dl (13.5-17.5); LYMPH # 0.6 10^3/uL (1.5-5.0); LYMPH % 14.1 % (24.0-44.0); MEAN CORPUSCULAR HEMOGLOBIN 26.2 pg (27.0-33.0); MEAN CORPUSCULAR HGB CONC 30.2 g/dl (32.0-36.5); MEAN CORPUSCULAR VOLUME 86.7 fl (80.0-96.0); MONO # 0.4 10^3/uL (0.0-0.8); MONO % 8.1 % (2.0-8.0); NEUTROPHILS # 3.4 10^3/uL (1.5-8.5); NEUTROPHILS % 75.9 % (36.0-66.0); PLATELET COUNT, AUTOMATED 121 10^3/uL (150-450); RED BLOOD COUNT 2.86 10^6/uL (4.30-6.10); WHITE BLOOD COUNT 4.5 10^3/uL (4.0-10.0)
--- NOTE | 2021-08-28 15:26 | REP ---
INDICATION: Syncope COMPARISON: 02/13/2021 TECHNIQUE: Axial noncontrast images from the skull base to the thoracic inlet with coronal reformations. This CT examination was performed using the following dose reduction techniques: Automated exposure control, adjustment of mA and/or kv according to the patient's size, and use of iterative reconstruction technique. FINDINGS: Atrophy with periventricular leukomalacia and microvascular ischemic changes are appreciated. 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 The ventricles and sulci are symmetric. Hardin-white differentiation is maintained. There is no evidence for acute intracranial hemorrhage, mass/mass effect, pathology or infarction. No extra-axial fluid collection. Calvarium is intact. Paranasal sinuses and mastoid air cells are clear. IMPRESSION: Atrophy and microvascular ischemic changes. No acute intracranial hemorrhage, infarction, or mass/mass effect. <Electronically signed by Gómez Webster > 08/28/21 1524
--- NOTE | 2021-08-28 15:34 | REP ---
INDICATION: Syncope/near-syncope COMPARISON: 02/13/2021 TECHNIQUE: Portable AP view of the chest FINDINGS: The mediastinum and cardiac silhouette are stable and within normal limits for portable technique. The lung coon demonstrate chronic changes without acute consolidation, effusion, or pneumothorax. Skeletal structures are intact. IMPRESSION: No acute cardiopulmonary process appreciated. <Electronically signed by Gómez Webster > 08/28/21 [id number]
[2021-08-28 15:59] LABS: BLOOD UREA NITROGEN 25 MG/DL (7-18); CALCIUM LEVEL 8.6 MG/DL (8.8-10.2); CARBON DIOXIDE LEVEL 28 MEQ/L (21-32); CHLORIDE LEVEL 109 MEQ/L (98-107); CK-MB VALUE MASS 4.2 NG/ML (<3.6); CPK CREATINE PHOSPHOKINASE 69 U/L (39-308); CREATININE FOR GFR 1.56 MG/DL (0.70-1.30); GLOMERULAR FILTRATION RATE 44.8 (>35); GLUCOSE, FASTING 128 MG/DL (70-100); MAGNESIUM LEVEL 2.3 MG/DL (1.8-2.4); MB/CK RELATIVE INDEX 6.09 (< OR =4); POTASSIUM SERUM 4.3 MEQ/L (3.5-5.1); SODIUM LEVEL 143 MEQ/L (136-145); TROPONIN I < 0.02 NG/ML (< 0.10)
[2021-08-28 16:08] LABS: INR 1.6; PROTHROMBIN TIME 19.5 SECONDS (12.7-14.5)
[2021-08-28 16:09] LABS: PARTIAL THROMBOPLASTIN TIME 33.8 SECONDS (25.9-37.0)
[2021-08-28 17:55] LABS: PERCENT SATURATION 9.6 % (19.7-50.0)
[2021-08-28] MEDS ORDERED: VITMTA PO (17:55)
[2021-08-28] MEDS ORDERED: SYST1SOL4 OU (17:55)
[2021-08-28] MEDS ORDERED: HOME MED LIST COMPLETE! XX SCH (18:00)
[2021-08-28 18:38] LABS: RSV AMPLIFICATION NEGATIVE (NEGATIVE)
[2021-08-28] MEDS ORDERED: ACETAMINOPHEN TAB 650MG DOSE (2X325MG) PO PRN (18:40)
[2021-08-28] MEDS ORDERED: MAALOX 30 ML SUSP *UDC PO PRN (18:40)
[2021-08-28] MEDS ORDERED: MOM 30ML SUSPENSION UDC PO PRN (18:40)
--- NOTE | 2021-08-28 18:44 | HPEPDOC ---
[facility] Medical History & Physical Date of Admission Aug 28, 2021 Date of Service: Aug 28, 2021 Attending Physician: MICHELLE PETIT MD History and Physical CHIEF COMPLAINT: [89 y/o male c/o pre-syncopal events] HISTORY OF PRESENT ILLNESS: [This is an 89 y/o male with a pmh of hld, a-fib on eliquis, htn, cristhian on cpap, ckd3 and dm2 who presents to our ED on 08/28 via ems with a cc of a pre-syncopal event that happened today, his third recently. Patient states that today when he got out of bed he experienced a "woozy" feeling and felt as though he was going to pass out. Patient states that he was able to hang on to some local objects and did not fall. Patient states that this is the third time that he has felt this strong "woozy" sensation now and that his daughter decided to call the ambulance today d/t this most recent one. Patient states that he has not yet fully passed out. Patient states that he cannot think of any obvious precipitating events for his symptoms. Patient states that they are not triggered by positional changes as one of his events happened while he was resting in a chair. Patient states that he has not felt ill lately, but has been told by his kids that he has not been eating or drinking enough and he blames this on the recent loss of his . Patient does mention to me that at times at home when checking his blood pressure he has recorded some low numbers, with the lowest being an 88 systolic. Patient tells me that at this time he feels "great," and denies any fevers, chills, chest pain, sob, abd pain, n/v/d/c, dysuria, pedal edema, paresthesias, weakness, room spinning sensation, tinnitus. ] PAST MEDICAL HISTORY: 1. [See HPI PAST SURGICAL HISTORY: 1. [B/l cataract removal]. 2. [Colonoscopy]. SOCIAL HISTORY: Resides in: [Home with children] Tobacco use:[Former] ETOH: [Denies] Illicit drug use: [Denies] FAMILY HISTORY: Reviewed - none pertinent ALLERGIES: Please see below. REVIEW OF SYSTEMS: CONSTITUTIONAL: [Denies fevers, chills]. HEENT: [Denies uri sx]. CARDIOVASCULAR: [Denies chest pain, palpitations]. RESPIRATORY: [Denies sob, cough]. GASTROINTESTINAL: [Denies abd pain, n/v/d/c]. GENITOURINARY: [Denies dysuria]. SKIN: [Denies rash]. MUSCULOSKELETAL: [Denies acute joint/back pain]. ENDOCRINE: [Hx of DM]. HEMATOLOGIC/LYMPHATIC: [Denies hx of vte]. HOME MEDICATIONS: Please see below. PHYSICAL EXAMINATION: VITAL SIGNS: Please see below. GENERAL APPEARANCE: [This is a pleasant 89 y/o male who is resting comfortably in bed and is alert and oriented to all questioning.]. HEENT: [No mass or lesion. EOMI. No scleral icterus. nares patent. Oral mucosa moist]. CARDIOVASCULAR: [Regular rate, rhythm. No murmurs, rubs, gallops]. LUNGS: [Good air flow b/l. No wheezing, rales, rhonchi]. ABDOMEN: [Soft, nontender]. MUSCULOSKELETAL: [No joint deformity noted]. EXTREMITIES: [No pedal edema appreciated. No overlying skin changes. Pulses int act]. NEUROLOGICAL: [Speech clear. A+Ox3. No focal deficits. Patient moves all fours freely during exam]. PSYCHIATRIC: [Mood and affect appear appropriate]. LABORATORY DATA: See below. IMAGING: [CXR: FINDINGS: The mediastinum and cardiac silhouette are stable and within normal limits for portable technique. The lung coon demonstrate chronic changes without acute consolidation, effusion, or pneumothorax. Skeletal structures are intact. IMPRESSION: No acute cardiopulmonary process appreciated. CT Head: FINDINGS: Atrophy with periventricular leukomalacia and microvascular ischemic changes are appreciated. 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 The ventricles and sulci are symmetric. Hardin-white differentiation is maintained. There is no evidence for acute intracranial hemorrhage, mass/mass effect, pathology or infarction. No extra-axial fluid collection. Calvarium is intact. Paranasal sinuses and mastoid air cells are clear. IMPRESSION: Atrophy and microvascular ischemic changes. No acute intracranial hemorrhage, infarction, or mass/mass effect.] MICROBIOLOGY: Please see below. ASSESSMENT: [This is an 89 y/o male with a pmh of hld, a-fib on eliquis, htn, cristhian on cpap, ckd3 and dm2 who presents to our ED on 08/28 via ems with a cc of a pre-syncopal event that happened today, his third recently. Patient states that today when he got out of bed he experienced a "woozy" feeling and felt as though he was going to pass out. Patient states that he was able to hang on to some local objects and did not fall. Workup performed thus far in the ED only notable for low hb of 7.5 and an ekg notable for 1st degree heart block]. . PLAN: 1. [Pre-syncope - Seems to be most likely symptomatic anemia. Ddx includes med induced hypotension, orthostasis, cardiac arrhythmia - TIA seems unlikely as patient is fully anticoagulated. CT negative - Anemia likely multifactorial in nature. Anemia of chronic disease, iron def anemia most notably - Need to r/o blood loss anemia so will check stool occult and ua for microscopic hematuria - Transfusion not currently indicated as goal hb in pt without CAD is >7 - Repeat h/h in the am - Iron studies performed in the ED low. Will begin replacement - Will check b12/folate/mma as well - Will check orthostats q8 - Will keep pt on telemetry overnight - Admit to med surg tele under obs for w/u and tx 2. A-fib - pt rate controlled in the ed - continue at home eliquis 3. DM2 - continue at home metformin xr, gabapentin 4. GERD - continue omeprazole 5. BPH - continue flomax 6. HLD - continue rosuvastatin DVT prophylaxis - pt on eliquis]. Vital Signs Vital Signs Date Time Temp Pulse Resp B/P (MAP) Pulse Ox O2 Delivery O2 Flow Rate FiO2 08/28/21 18:30 68 18 145/80 (101) 97 Room Air 08/28/21 14:02 97.3 Laboratory Data Labs 24H Laboratory Tests 2 08/28/21 15:10: Immature Granulocyte % (Auto) 0.2, Neutrophils (%) (Auto) 75.9H, Lymphocytes (%) (Auto) 14.1L, Monocytes (%) (Auto) 8.1H, Eosinophils (%) (Auto) 1.3, Basophils (%) (Auto) 0.4, Neutrophils # (Auto) 3.4, Lymphocytes # (Auto) 0.6L, Monocytes # (Auto) 0.4, Eosinophils # (Auto) 0.1, Basophils # (Auto) 0.0, Nucleated Red Blood Cells % (auto) 0.0, Anion Gap 6L, Glomerular Filtration Rate 44.8, Calcium Level 8.6L, Magnesium Level 2.3, Total Creatine Kinase 69, Creatine Kinase MB 4.2H, Creatine Kinase MB Relative Index 6.09H, Troponin I < 0.02, Thyroid Stimulating Hormone (TSH) 2.090 08/28/21 15:46: Prothrombin Time 19.5H, Prothromb Time International Ratio 1.60, Activated Partial Thromboplast Time 33.8 08/28/21 17:16: Iron Level 28L, Total Iron Binding Capacity 292, Transferrin % Saturation 9.6L, Coronavirus (COVID-19)(PCR) NEGATIVE, Influenza Type A (RT-PCR) NEGATIVE, Influenza Type B (RT-PCR) NEGATIVE, Respiratory Syncytial Virus (PCR) NEGATIVE CBC/BMP Laboratory Tests 08/28/21 15:10 Home Medications Scheduled Apixaban (Eliquis) 2.5 Mg Tablet, 2.5 MG PO BID Ascorbic Acid (Vitamin C) 500 Mg Capsule, 500 MG PO DAILY Calcium Carbonate (Calcium) 600 Mg Tablet, 600 MG PO DAILY Cholecalciferol (Vitamin D3) (Vitamin D3) 1,000 Unit Tablet, 1,000 UNITS PO DAILY Gabapentin (Gabapentin) 300 Mg Capsule, 900 MG PO QHS Metformin HCl (Metformin HCl ER) 500 Mg Tab.er.24h, 500 MG PO DAILY Montelukast Sodium (Montelukast Sodium) 10 Mg Tablet, 10 MG PO QPM DINNERTIME Multivitamins (Thera M Plus Tablet) 1 Each Tablet, 1 TAB PO DAILY Omeprazole (Omeprazole) 20 Mg Capsule.dr, 20 MG PO QAM Potassium Chloride (Potassium Chloride) 10 Meq Tab.er.prt, 20 MEQ PO BID Propylene Glycol/Peg 400/Pf (Systane 0.3-0.4% Eye Drop) 1 Each Droperette, 1 DROP OU BID Rosuvastatin Calcium (Rosuvastatin Calcium) 40 Mg Tablet, 40 MG PO QPM DINNERTIME Tamsulosin HCl (Flomax) 0.4 Mg Capsule, 0.4 MG PO QPM Vit C/E/Zn/Coppr/Lutein/Zeaxan (Preservision Areds 2 Softgel) 1 Each Capsule, 1 CAP PO BID Scheduled PRN Polyethylene Glycol 3350 (Polyethylene Glycol 3350) 17 Gm Powd.pack, 17 GRAM PO DAILY PRN for CONSTIPATION Allergies Coded Allergies: Sulfa (Sulfonamide Antibiotics) (Verified Adverse Reaction, Mild, WEAKNESS, 08/28/21) aspirin (Verified Adverse Reaction, Mild, UPSET STOMACH, 08/28/21) A-FIB/CHADSVASC A-FIB History Current/History of A-Fib/PAF?: Yes Current PO Anticoag Therapy: Yes LUTHER FLORES Aug 28, 2021 18:44
--- OUTSIDE RECORDS SUMMARY | 2021-08-28 18:58 | CCD ---
Author Author [facility] Address Unknown Phone Unavailable Care Team Providers Care Imcu Specialist Name Role Phone Que Merlos MD Unavailable Unavailable Que Merlos [...] Wetterhahn, Que BAXTER Unavailable Unavailable Wetterhahn, Que BAXETR Unavailable Unavailable WetterhahnQue MD Unavailable Unavailable Wetterhahn, Que BAXTER Unavailable Unavailable Wetterhahn, Que BAXTER Unavailable Unavailable Wetterhahn, Que BAXTER Unavailable Unavailable Wetterhahn, Que BAXTER Unavailable Unavailable Wetterhahn, Que BXATER Unavailable Unavailable Wetterhahn, Que BAXTER Unavailable Unavailable [...] MD Unavailable Unavailable WetterhahnQue MD Unavailable Unavailable ALLA, ISABELA MD Unavailable Unavailable ALLA, ISABELA MD Unavailable Unavailable ALLA, ISABELA MD Unavailable Unavailable ALLA, ISABELA MD Unavailable Unavailable ALLA, ISABELA MD Unavailable Unavailable ALLA, ISABELA MD Unavailable Unavailable ALLA, ISABELA MD Unavailable Unavailable ALLA, ISABELA MD Unavailable Unavailable ALLA, ISABELA MD Unavailable Unavailable ALLA, ISABELA MD Unavailable Unavailable ALLA, ISABELA MD Unavailable Unavailable ALLA, ISABELA MD Unavailable Unavailable ALLA, ISABELA MD Unavailable Unavailable ALLA, ISABELA MD Unavailable Unavailable ALLA, ISABELA MD Unavailable Unavailable ALLA, ISABELA MD Unavailable Unavailable ALLA, ISABELA MD Unavailable Unavailable ALLA, ISABELA MD Unavailable Unavailable ALLA, ISABELA MD Unavailable Unavailable ALLA, ISABELA MD Unavailable Unavailable ALLA, ISABELA MD Unavailable Unavailable ALLA, ISABELA MD Unavailable Unavailable ALLA, ISABELA MD Unavailable Unavailable ALLA, ISABELA MD Unavailable Unavailable ALLA, ISABELA MD Unavailable Unavailable ALLA, ISABELA MD Unavailable Unavailable ALLA, ISABELA MD Unavailable Unavailable ALLA, ISABELA MD Unavailable Unavailable ALLA, ISABELA MD Unavailable Unavailable ALLA, ISABELA MD Unavailable Unavailable ALLA, ISABELA MD Unavailable Unavailable ALLA, ISABELA MD Unavailable Unavailable ALLA, ISABELA MD Unavailable Unavailable ALLA, ISABELA MD Unavailable Unavailable ALLA, ISABELA MD Unavailable Unavailable ALLA, ISABELA MD Unavailable Unavailable ALLA, ISABELA MD Unavailable Unavailable ALLA, ISABELA MD Unavailable Unavailable ALLA, ISABELA MD Unavailable Unavailable ALLA, ISABELA MD Unavailable Unavailable ALLA, ISABELA MD Unavailable Unavailable ALLA, ISABELA MD Unavailable Unavailable ALLA, ISABELA MD Unavailable Unavailable Trickey, J Jazmin PA Unavailable [...] Unavailable SYMENOW, G CHRISTOPHER PA Unavailable Unavailable Simran, V GINNY PA-C Unavailable Unavailable Simran, V GINNY PA-C Unavailable Unavailable Simran, V GINNY PA-C Unavailable Unavailable Simran, V GINNY PA-C Unavailable Unavailable Simran, V GINNY PA-C Unavailable Unavailable Tillar, V GINNY PA-C Unavailable Unavailable Tillar, V GINNY PA-C Unavailable Unavailable Simran, V GINNY PA-C Unavailable Unavailable Tillar, V GINNY PA-C Unavailable Unavailable Simran, V GINNY PA-C Unavailable Unavailable Tillar, V GINNY PA-C Unavailable Unavailable Tillar, V GINNY PA-C Unavailable Unavailable Simran, V GINNY PA-C Unavailable Unavailable Tillar, V GINNY PA-C Unavailable Unavailable Fons, M Oneyda ADULT PROBATION OFFICER Unavailable Unavailable Fons, M Oneyda ADULT PROBATION OFFICER Unavailable Unavailable Fons, M Oneyda ADULT PROBATION OFFICER Unavailable Unavailable Fons, M Oneyda ADULT PROBATION OFFICER Unavailable Unavailable Fons, M Oneyda ADULT PROBATION OFFICER Unavailable Unavailable Fons, M Oneyda ADULT PROBATION OFFICER Unavailable Unavailable Fons, M Oneyda ADULT PROBATION OFFICER Unavailable Unavailable Fons, M Oneyda ADULT PROBATION OFFICER Unavailable Unavailable Fons, M Oneyda ADULT PROBATION OFFICER Unavailable Unavailable Fons, M Oneyda ADULT PROBATION OFFICER Unavailable Unavailable Fons, M Oneyda ADULT PROBATION OFFICER Unavailable Unavailable Fons, M Oneyda ADULT PROBATION OFFICER Unavailable Unavailable Fons, M Oneyda ADULT PROBATION OFFICER Unavailable Unavailable Fons, M Oneyda ADULT PROBATION OFFICER Unavailable Unavailable Fons, M Oneyda ADULT PROBATION OFFICER Unavailable Unavailable Fons, M Oneyda ADULT PROBATION OFFICER Unavailable Unavailable Fons, M Oneyad ADULT PROBATION OFFICER Unavailable Unavailable Fons, M Oneyda ADULT PROBATION OFFICER Unavailable Unavailable Fons, M Oneyda ADULT PROBATION OFFICER Unavailable Unavailable Fons, M Oneyda ADULT PROBATION OFFICER Unavailable Unavailable Fons, M Oneyda ADULT PROBATION OFFICER Unavailable Unavailable Fons, M Oneyda ADULT PROBATION OFFICER Unavailable Unavailable Fons, M Oneyda ADULT PROBATION OFFICER Unavailable Unavailable Fons, M Oneyda ADULT PROBATION OFFICER Unavailable Unavailable Fons, M Oneyda ADULT PROBATION OFFICER Unavailable Unavailable Fons, M Oneyda ADULT PROBATION OFFICER Unavailable Unavailable Fons, M Oneyda ADULT PROBATION OFFICER Unavailable Unavailable Fons, M Oneyda ADULT PROBATION OFFICER Unavailable Unavailable Fons, M Oneyda ADULT PROBATION OFFICER Unavailable Unavailable Fons, M Oneyda ADULT PROBATION OFFICER Unavailable Unavailable Fons, M Oneyda ADULT PROBATION OFFICER Unavailable Unavailable Fons, M Oneyda ADULT PROBATION OFFICER Unavailable Unavailable Fons, M Oneyda ADULT PROBATION OFFICER Unavailable Unavailable Fons, M Oneyda ADULT PROBATION OFFICER Unavailable Unavailable Fons, M Oneyda ADULT PROBATION OFFICER Unavailable Unavailable Fons, M Oneyda ADULT PROBATION OFFICER Unavailable Unavailable Fons, M Oneyda ADULT PROBATION OFFICER Unavailable Unavailable Fons, M Oneyda ADULT PROBATION OFFICER Unavailable Unavailable Fons, M Oneyda ADULT PROBATION OFFICER Unavailable Unavailable Fons, M Oneyda ADULT PROBATION OFFICER Unavailable Unavailable Fons, M Oneyda ADULT PROBATION OFFICER Unavailable Unavailable Fons, M Oneyda ADULT PROBATION OFFICER Unavailable Unavailable Fons, M Oneyda ADULT PROBATION OFFICER Unavailable Unavailable Fons, M Oneyda ADULT PROBATION OFFICER Unavailable Unavailable Fons, M Oneyda ADULT PROBATION OFFICER Unavailable Unavailable Fons, M Oneyda ADULT PROBATION OFFICER Unavailable Unavailable Fons, M Oneyda ADULT PROBATION OFFICER Unavailable Unavailable Fons, M Oneyda ADULT PROBATION OFFICER Unavailable Unavailable Fons, M Oneyda ADULT PROBATION OFFICER Unavailable Unavailable Fons, M Oneyda ADULT PROBATION OFFICER Unavailable Unavailable Fons, M Oneyda ADULT PROBATION OFFICER Unavailable Unavailable Fons, M Oneyda ADULT PROBATION OFFICER Unavailable Unavailable Fons, M Oneyda ADULT PROBATION OFFICER Unavailable Unavailable QI, A ANDRAE DO Unavailable [...] Unavailable QI, A ANDRAE DO Unavailable Unavailable IQ, A ANDRAE DO Unavailable Unavailable QI, A [...] is protected by Article 27-F of the [facility] Public Health law. If you continue you may have access to information: Regarding HIV / AIDS; Provided by facilities licensed or operated by the [facility] Office of Mental Health; or Provided by the [facility] Office for People With Developmental Disabilities. If such information is present, then the following [facility] mandated warning applies: This information has been [...] law may result in a fine or retirement sentence or both. A general authorization for the release of medical or other information is NOT sufficient authorization for further disc losure. Allergies and Adverse Reactions Type Description Substance Reaction Status Data Source(s ) Allergy to substance No Known Allergies No known allergies (situation ) DIXIE (Rick Sandoval MD [facility]) Allergy to substance No Known Allergies No known allergies (situation ) DIXIE (Rick Sandoval MD [facility]) Allergy to substance No Known Allergies No known allergies (situation ) DIXIE (Rick Sandoval MD [facility]) Allergy to substance No Known Allergies No known allergies (situation ) DIXIE (Rick Sandoval MD [facility]) Allergy to substance No Known Allergies No known allergies (situation ) DIXIE (Rick Sandoval MD [facility]) Allergy to substance No Known Allergies No known allergies (situation ) DIXIE (Rick Sandoval MD [facility]) Allergy to substance No Known Allergies No known allergies (situation ) ALEJA (Rick Sandoval MD [facility]) Allergy to substance No Known Allergies No known allergies (situation ) ALEJA (Rick Sandoval MD [facility]) Allergy to substance No Known Allergies No known allergies (situation ) ALEJA (Rick Sandoval MD [facility]) Family History Family Member Name Family Member Gender Family Member Status Date o f Status Description Data Source(s) Unknown Unknown Problem MEDENT ([facility], ) Unknown Male Problem MEDENT ([facility] () Unknown Female Problem MEDENT ([facility]) Unknown Female Problem MEDENT ([facility] Unknown Female Problem MEDENT ([facility] Encounters Encounter Providers Location Date Indications Data Source(s ) Outpatient Attender: GINNY BROWN-SJP.ANDREZ 04/2021 12:00:00 AM EDT - 08/21/2021 11:09:51 AM EDT [facility] [place] [address] [address] 08/15/2021 12:00:00 AM EDT eC (Formerly [facility]) Outpatient Attender: Oneyda BROWN-SJP.ANDREZ 12:00:00 AM EDT - 07/31/2021 11:37:52 AM EDT [facility] Out[place] [address] [address] 07/25/2021 12:00:00 AM EDT eCW1 ([facility]) Outpatient Attender: Oneyda BROWN-SJPCristinaANDREZ 12:00:00 AM EDT - 06/18/2021 11:59:57 AM EDT [facility] Outpatient Attender: Jazmin TRINH 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</content>, <content ID="encounterDiagnosisID0-1">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</content>, <content ID="encounterDiagnosisID0-2">Essential Hypertension</content>, <content ID="encounterDiagnosisID0-3">History of Nicotine Dependence</content>, <content ID="encounterDiagnosisID0-4">Borderline Glaucoma Ocular Hypertension Both Eyes</content>, <content ID="encounterDiagnosisID0-5">Pseudophakic - Both Eyes</content>, <content ID="encounterDiagnosisID0-6">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</content></td>Outpatient Attender: ANDRAE Vera MD [facility] 05/02/2021 12:09:00 PM EDT - 05/02/2021 [...] Hypertension Both EyesHistory of Nicotine DependenceEssential Hypertension DIXIE (Rick Sandoval MD [facility]) Pseudophakic - Both Eyes Pseudophakic - [...] of Nicotine Dependence Essential Hypertension Unknown [address] [address] 04/16/2021 12:00:00 AM EDT eCW1 ([facility]ly [facility]) Emergency Attender: MARIZOL Biswaserrer: Que Merlos MD 04/14/2021 11:19:00 PM EDT - 04/14/2021 11:35:00 PM EDT [facility] Patient discharged. Outpatient [address] [place] [id number] 04/03/2021 12:00:00 AM EDT eCW1 (Formerly [facility]) Office Visit, Est Pt., Level 2 FC [address] [place] [address] 02/21/2021 12:00:00 AM EDT eCW1 ([facility]) Unknown [address] [address] 02/18/2021 12:00:00 AM EDT eCW1 ([facility]ly [facility]) Outpatient Attender: SALEEM TRINH Physical Therapy 01/15 02:00:00 PM EDT MEDENT ([facility]) Unknown [address] [facility] [address] 01/22/2021 12:00:00 AM EST eCW1 ([facility]) Unknown [address] [facility] [address] 12/14/2020 12:00:00 AM EST eCW1 (Formerly [facility]) OFFICE OUTPATIENT VISIT 15 MINUTES Attender: SALEEM TRINH Ph ysical Therapy 11/12/2020 02:00:00 PM EST MEDENT ([facility]) Outpatient Attender: Oneyda CERON SJP.ANDREZ-SJP.ANDREZ 12:00:00 AM EST - 10/24/2020 01:45:59 PM EST [facility] TeleMedicine Est. Pt. Level 3 [address] [place] [address] 10/03/2020 12:00:00 AM EST eCW1 ([facility]) [place] [address] [address] 08/21/2020 12:00:00 AM EDT eCW1 ([facility]) Outpatient [address] [address] 08/21/2020 12:00:00 AM EDT eCW1 ([facility]) <td ID="encounterTypeDescriptionID1">3 - 4 WK [employer] CAT SX</td><td>Andrae Stout DO</td><td>Rick Fletcher MD [facility]</td><td>07/26/2020</td><td>12:00PM</td><td>12:35PM</td><td><content ID="encounterDiagnosisID1-0">Pseudophakic - Both Eyes</content></td>Outpatient Attender: ANDRAE Vera MD [facility] 07/26/2020 12:00:00 PM EDT - 07/26/2020 12:35:00 PM EDT Pseudophakic - Both EyesPseudophakic - B oth EyesPseudophakic - Both EyesPseudophakic - Both EyesPseudophakic - Both EyesPseudophakic - Both EyesPseudophakic - Both EyesPseudophakic - Both EyesPseudophakic - Both Eyes ALEJA (Rick Sandoval MD [facility]) 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 <td ID="encounterTypeDescriptionID2">[address] [place] [facility] OP</td><td>Andrae Stout DO</td><td>Rick Fletcher MD [facility]</td><td>07/10/2020</td><td>2:22PM</td><td>3:58PM</td><td><content ID="encounterDiagnosisID2-0">Pseudophakic - Both Eyes</content></td>Outpatient Attender: ANDRAE Vera MD [facility] 07/10/2020 02:22:00 PM EDT - 07/10/2020 03:58:00 PM EDT Pseudophakic - Both EyesPseudophakic - B oth EyesPseudophakic - Both EyesPseudophakic - Both EyesPseudophakic - Both EyesPseudophakic - Both EyesPseudophakic - Both EyesPseudophakic - Both EyesPseudophakic - Both Eyes ALEJA (Rick Sandoval MD [facility]) 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 Outpatient Attender: ANDRAE STOUT DO 0 06/11/2020 07:18:00 AM EDT - 06/11/2020 10:30:00 AM [facility] Patient discharged. Immunizations Vaccine Date Status Description Data Source(s) influenza, recombinant, quadrIvalent,injectable, prese rvative free 08/21/2020 05:32:00 PM EDT completed eCW1 ([facility]) influenza, recombinant, quadrIvalent,injectable, prese rvative free 08/21/2020 05:32:00 PM EDT completed eCW1 ([facility]) influenza, recombinant, quadrIvalent,injectable, prese rvative free 08/21/2020 05:32:00 PM EDT completed eCW1 ([facility]) influenza, recombinant, quadrIvalent,injectable, prese rvative free 08/21/2020 05:32:00 PM EDT completed eCW1 ([facility]) influenza, recombinant, quadrIvalent,injectable, prese rvative free 08/21/2020 05:32:00 PM EDT completed eCW1 ([facility]) influenza, recombinant, quadrIvalent,injectable, prese rvative free 08/21/2020 05:32:00 PM EDT completed eCW1 ([facility]) influenza, recombinant, quadrIvalent,injectable, prese rvative free 08/21/2020 05:32:00 PM EDT completed eCW1 ([facility]) influenza, recombinant, quadrIvalent,injectable, prese rvative free 08/21/2020 05:32:00 PM EDT completed eCW1 ([facility]) influenza, recombinant, quadrIvalent,injectable, prese rvative free 08/21/2020 05:32:00 PM EDT completed eCW1 ([facility]) influenza, recombinant, quadrIvalent,injectable, prese rvative free 08/21/2020 05:32:00 PM EDT completed eCW1 ([facility]) influenza, recombinant, quadrIvalent,injectable, prese rvative free 08/21/2020 05:32:00 PM EDT completed eCW1 ([facility]) influenza, recombinant, quadrIvalent,injectable, prese rvative free 08/21/2020 05:32:00 PM EDT completed eCW1 ([facility]) Medications Medication Brand Name Start Date Product Form Dose Route Admi nistrative Instructions Pharmacy Instructions Status Indications Reaction Description Data Source(s) midodrine hydrochloride 2.5 MG Oral Tablet midodrine ( PROAMATINE) 2.5 MG tablet midodrine (PROAMATINE) 2.5 MG tablet 08/21/2021 12:00:00 AM EDT 2.5 m g Oral active Take 1 tablet (2.5 mg total) by mouth 2 (two) times a day [facility] 60 mcg (15 mcg x 4)/0.5 mL [...] {tablet_as_needed} active Tramadol HCl 50 MG eCW1 ([facility]) tramadol hydrochloride 50 MG Oral Tablet Tramadol HCl 50 MG Tramadol HCl 50 MG 01/22/2021 12:00:00 AM EST 1.0 {tablet_as_needed} active Tramadol HCl 50 MG eCW1 ([facility]) tramadol hydrochloride 50 MG Oral Tablet traMADol HCl 50 MG traMADol HCl 50 MG 01/22/2021 12:00:00 AM EST 1.0 {tablet_as_needed} active traMADol HCl 50 MG eCW1 ([facility]) tramadol hydrochloride 50 MG Oral Tablet Tramadol HCl 50 MG Tramadol HCl 50 MG 01/22/2021 12:00:00 AM EST 1.0 {tablet_as_needed} active Tramadol HCl 50 MG eCW1 ([facility]) tramadol hydrochloride 50 MG Oral Tablet traMADol HCl 50 MG traMADol HCl 50 MG 01/22/2021 12:00:00 AM EST 1.0 {tablet_as_needed} active traMADol HCl 50 MG eCW1 ([facility]) tramadol hydrochloride 50 MG Oral Tablet Tramadol HCl 50 MG Tramadol HCl 50 MG 01/22/2021 12:00:00 AM EST 1.0 {tablet_as_needed} active Tramadol HCl 50 MG eCW1 ([facility]) tramadol hydrochloride 50 MG Oral Tablet Tramadol HCl 50 MG Tramadol HCl 50 MG 01/22/2021 12:00:00 AM EST 1.0 {tablet_as_needed} active Tramadol HCl 50 MG eCW1 ([facility]) Diclofenac Sodium 0.01 MG/MG Topical Gel Diclofenac Sodium 11/12/2020 12:00:00 AM EST active MEDENT ([facility] ) loteprednol etabonate 5 MG/ML / Tobramyc in 3 MG/ML Ophthalmic Suspension [Zylet] Zylet 0.5-0.3% Ophthalmic Suspension Zylet 0.5-0.3% Ophthalmic Suspension 07/10/2020 12:00:00 AM EDT aborted loteprednol etabonate 5 MG/ML / tobramycin 3 MG/ML Ophthalmic Suspension [Zylet] ALEJA (Rick Sandoval MD [facility]) BromSite 0.075% Ophthalmic Solution BromSite 0.075% Ophthalm ic Solution 06/06/2020 12:00:00 AM EDT aborted bromfenac 0.75 MG/ML Ophthalmic Solution [Bromsite] ALEJA (Rick Sandoval MD [facility]) besifloxacin 6 MG/ML Ophthalmic Suspensi on [Besivance] Besivance 0.6% Ophthalmic Suspension Besivance 0.6% Ophthalmic Suspension 06/06/2020 12:00:00 AM EDT aborted besifloxacin 6 MG/ML Ophthalmic Suspension [Besivance] ALEJA (Rick Sandoval MD [facility]) Inveltys 1% Ophthalmic Suspension Inveltys 1% Ophthalmic Krystal pension 06/06/2020 12:00:00 AM EDT aborted loteprednol etabonate 10 MG/ML Ophthalmic Suspension [Inveltys] ALEJA (Rick Sandoval MD [facility]) Omeprazole 20 MG Delayed Release Oral Tablet Omeprazol e 20 MG TBEC Omeprazole 20 MG TBEC 08/31/2014 12:00:00 AM EDT aborted OMEPRAZOLE 20 MG TBEC [facility] ipratropium (ATROVENT) 0.03 % nasal spray [id number] 08/31/2014 12:00:00 AM EDT aborted as needed [facility] Ascorbic Acid 500 MG Oral Tablet ascorbic acid (VITAMI N C) 500 MG tablet ascorbic acid (VITAMIN C) 500 MG tablet 08/31/2014 12:00:00 AM EDT aborted VITAMIN C [address] [facility] Multiple Vitamin (MULTIVITAMIN) capsule [id number] 08/31/20 14 12:00:00 AM EDT aborted MULTIVITAMINS CA PS [facility] Multiple Vitamins-Minerals (PRESERVISION AREDS 2 PO) drug or medicati on Oral aborted Take by mouth [facility] potassium chloride in dextrose solution drug or medication aborted [facility] Chlorthalidone 25 MG Oral Tablet chlorthalidone (HYGRO TEN) 25 MG tablet chlorthalidone (HYGROTEN) 25 MG tablet 12.5 mg Oral aborted Take 12.5 mg by mouth daily [facility] apixaban 2.5 MG Oral Tablet apixaban (Eliquis) 2.5 MG TABS tablet apixaban (Eliquis) 2.5 MG TABS tablet 5 mg Oral aborted Take 5 mg by mouth 2 (two) times a day [facility] Ipratropium [place] 0.2 MG/ML Inhalant S olution ipratropium (ATROVENT) 0.02 % nebulizer solution ipratropium (ATROVENT) 0.02 % nebulizer solution aborted as needed [facility] Hydrochlorothiazide 25 MG / Triamterene 37.5 MG Oral Tablet triamterene- hydrochlorothiazide (MAXZIDE-25) 37.5-25 MG per tablet triamterene- hydrochlorothiazide (MAXZIDE-25) 37.5-25 MG per tablet 1 {tb l} Oral aborted Take 1 tablet by mouth daily [facility] Lisinopril 40 MG Oral Tablet lisinopril (PRINIVIL,ZEST RIL) 40 MG tablet lisinopril (PRINIVIL,ZESTRIL) 40 MG tablet 40 mg Oral aborted Take 40 mg by mouth daily [facility] Gabapentin 10 % CREA [id number] aborted [facility] Lisinopril 1 MG/ML SOLN [id number] aborted [facility] Chlorthalidone 25 MG Oral Tablet chlorthalidone (HYGRO TEN) 25 MG tablet chlorthalidone (HYGROTEN) 25 MG tablet abort ed [facility] Tamsulosin hydrochloride 0.4 MG Oral Capsule tamsulosi n (FLOMAX) 0.4 MG CAPS tamsulosin (FLOMAX) 0.4 MG CAPS 0.4 mg Oral aborte d Take 0.4 mg by mouth daily [facility] apixaban 2.5 MG Oral Tablet apixaban (Eliquis) 2.5 MG TABS tablet apixaban (Eliquis) 2.5 MG TABS tablet aborted [facility] cetirizine hydrochloride 10 MG Oral Caps ule [Zyrtec] Cetirizine HCl (ZyrTEC Allergy) 10 MG CAPS Cetirizine HCl (ZyrTEC Allergy) 10 MG CAPS aborted [facility] Insurance Providers Payer name Policy type / Coverage type Policy ID Covered constitution party ID Covered constitution party's relationship to quinones Policy Quinones Plan Information MEDICARE [id number] xxxxxxxxxxx [id number] Medicare Medicare Primary [id number] Self [id number] MEDICARE [id number] SP [id number] A Medicare Medicare Primary [id number] Self [id number] Medicare Medicare Primary [id number] Self [id number] Medicare Medicare Primary [id number] Self [id number] [place] [id number] Self [id number] [employer] [employer] [id number] S [id number] Medicare Medicare Primary [id number] Self [id number] Medicare Med[place] Part B [id number] [id number] Self [id number] MEDICARE - [place] [id number] S [id number] Medicare Medicare Primary [id number] Self [id number] MEDICARE [id number] [place] [id number] Medicare Medicare Primary [id number] Self Medicare [place] Primary [id number] Self Medicare Medicare Primary [id number] Self [id number] Medicare Medicare Primary [id number] 2.16.840.1.808285.3.227. 99.936.9800.0 Self [id number] [employer] [id number] 2.16.840.1.433031.3.227.99.177. 6434.0 Self [id number] [employer] [id number] 2.16.840.1.848146.3.227.9 9.8646.40367.0 Self [id number] [facility] C[facility] OPTIONS [id number] SP [id number] [facility] [id number] xxxxxxxxxxx [id number] [facility] [id number] [place] [id number] [place] Other 0 [id number] Se lf 0 [place] Other 0 [id number] Se lf 0 [place] Other 0 [id number] Se lf 0 [place] Other 0 [id number] Se lf 0 [place] [id number] S [id number] [place] Other 0 [id number] Se lf 0 BCBS of [facility] [place] Other 0 [id number] Se lf 0 BCBS of [facility] [place] Other 0 [id number] Se lf 0 BCBS of [facility] Other 0 [id number] Se lf 0 BCBS of [facility] [place] Other 0 [id number] Se lf 0 BCBS of [facility] Other 0 [id number] Se lf 0 Medicare Part B of [facility] Other 0 [id number] Self 0 ANSI-Medicare Part B [id number] ANSI-Commercial [id number] Medicare Dme Medigap Part B [id number] 2.16.840.1.514569.3.227.99 .936.9800.0 Self [id number] [employer] Insurance Medigap Part B [id number] 2.16.840.1.995677.3.227. 99.936.9800.0 Self [id number] ANSI-Commercial [id number] ANSI-Medicare Part B [id number] ANSI-Commercial [id number] ANSI-Medicare Part B [id number] Medicare Dme Medigap Part B [id number] 2..1.403890.3.227.99 .936.9800.0 Self [id number] [employer] Insurance Medigap Part B [id number] 2..1.311156.3.227. 99.936.9800.0 Self [id number] ANSI-Medicare Part B [id number] ANSI-Commercial [id number] ANSI-Commercial [id number] ANSI-Medicare Part B [id number] [employer] Medigap Part B [id number] 2...075342.3.227.99.8646.495 86.0 Self [id number] [employer] Medigap Part B [id number] 2..1.181590.3.227.99.8646. 66628.0 Self [id number] [employer]arp Medigap Part B [id number] 2..1.513855.3.227.99.8646.4 9586.0 Self [id number] Medicare [place] Medicare Primary [id number] 2..1.478156.3.227.99.8646.82873.0 Self [id number] ANSI-Medicare Part B [id number] ANSI-Commercial [id number] ANSI-Commercial [id number] ANSI-Medicare Part B [id number] [employer] Insurance Medigap Part B [id number] .1.656261.3.227. 99.936.9800.0 Self [id number] Medicare Dme Medicare Primary [id number] 2..1.816769.3.227. 99.936.9800.0 Self [id number] Medicare Dme Medigap Part B [id number] ..1.580696.3.227.99 .936.9800.0 Self [id number] [employer] Medigap Part B [id number] .1.729430.3.227. 99.936.9800.0 Self [id number] MEDICARE [id number] SP [id number] A MEDICARE C [id number] S [id number] A Medicare Dme Medigap Part B [id number] .1.811308.3.227.99 .936.9800.0 Self [id number] [employer] Insurance Medigap Part B [id number] .1.006921.3.227. 99.936.9800.0 Self [id number] Medicare Dme Medigap Part B [id number] 2.840.1.390968.3.227.99 .936.9800.0 Self [id number] [employer] Medigap Part B [id number] 2.160.1.757597.3.227. 99.936.9800.0 Self [id number] [employer] Commercial [id number] 2.840.1.530170.3.227.99.177.6434.0 [facility] [id number] Aarp/ Health Care Options Medigap Part B [id number] 2.0.1.932124.3.227.99.177.6434.0 Self [id number] Medicare - NGS Medicare Primary [id number] 2.0.1.1138 83.3.227.99.177.6434.0 Self [id number] Medicare Dme Medigap Part B [id number] 2.0.1.765298.3.227.99 .936.9800.0 Self [id number] [employer] Insurance Medigap Part B [id number] 2.0.1.741024.3.227. 99.936.9800.0 Self [id number] Medicare Dme Medigap Part B [id number] 2.0.1.201879.3.227.99 .936.9800.0 Self [id number] [employer] Medigap Part B [id number] 2.0.1.785996.3.227. 99.936.9800.0 Self [id number] [employer] Insurance Medigap Part B [id number] 2.0.1.329497.3.227. 99.936.9800.0 Self [id number] Medicare Dme Medicare Primary [id number] 2.0.1.773392.3.227. 99.936.9800.0 Self [id number] Medicare Dme Medigap Part B [id number] 2.0.1.468260.3.227.99 .936.9800.0 Self [id number] [employer] Insurance Medigap Part B [id number] 2..840.1.119823.3.227. 99.936.9800.0 Self [id number] Medicare Dme Medigap Part B 2..840.1.920098.3.227.99.936.9 800.0 Self [employer] Insurance Medigap Part B [id number] Self Aarp Health Care Options Medigap Part B 2.0.1.508393.3.227.99.6619.15065.0 Self AARP S [id number] S [id number] [facility] P [id number] S [id number] A MEDICARE [id number] SP [id number] AARP HEALTH CARE OPTIONS [id number] SP [id number] [place] PPO 302/307 [id number] SP [id number] Medicare Part B of [facility] Other 0 [id number] Self 0 Medicare Part B of [facility] Other 0 [id number] Self 0 Medicare Part B of [facility] Other 0 [id number] Self 0 Medicare Part B of [facility] Other 0 [id number] Self 0 Medicare Part B of [facility] Other 0 [id number] Self 0 Medicare Part B of [facility] Other 0 [id number] Self 0 BCBS EMPIRE ADEBAYO DIV BCBS [place] [id number] S VYY [id number] [employer] MEDICARE DIVISION [id number] S [id number] MEDICARE - [place] [id number] S [id number] [place]BS [place] [id number] S VYY [id number] [employer] MEDICARE DIVISION [id number] S [id number] MEDICARE - [place] [id number] S [id number] [facility] HEALTH CARE OPTIONS [id number] S [id number] [place]BS [place]AT[place] PPO 302/307 [id number] SP [id number] EXCELL[place] BCBS B [id number] S VYY [id number] MEDICARE C [id number] S [id number] Medicare Part B [facility] Other 0 [id number] Self 0 Medicare Part B [facility] Other 0 [id number] Self 0 NGS MEDICARE [place] O [id number] S [id number] EXCELLUS BCBS B [id number] S VYY [id number] BCBS HMO BLUE [id number] SP VYY [id number] Medicare Part B [facility] Other 0 [id number] Self 0 AAR O [id number] S [id number] [facility] HEALTH CARE OPTIONS [id number] S [id number] [employer] MEDICARE DIVISION [id number] S [id number] MEDICARE [place] [id number] S [id number] [employer] MEDICARE DIVISION [id number] S [id number] [place]ICARE [place] [id number] S [id number] Problems, Conditions, and Diagnoses Code Display Name Description Problem Type Effective Dates Data Source(s) R55 Syncope and collapse Syncope and collapse Diagnosis 08/21/2021 10:06:14 AM EDT [facility] I48.0 Paroxysmal atrial fibrillation Paroxysmal atrial fibri llation Diagnosis 07/31/2021 09:14:04 AM EDT [facility] G47.33 Obstructive sleep apnea (adult) (pediatr ic) Obstructive sleep apnea (adult) (pediatr Diagnosis 07/31/2021 09:14:04 AM EDT [facility] E78.5 Hyperlipidemia, unspecified Hyperlipidemia, unspecifie d Diagnosis 07/31/2021 09:14:04 AM EDT [facility] I10 Essential (primary) hypertension Essential (primary) h ypertension Diagnosis 07/31/2021 09:14:04 AM EDT [facility] E11.59 Type 2 diabetes mellitus with other circ ulatory complications Type 2 diabetes mellitus with other circ Diagnosis 07/31/2021 09:14:04 AM EDT [facility] Z79.899 Other manager intermediate (current) drug therapy O THER LONG-TERM (CURRENT) DRUG THERAPY Diagnosis 04/14/2021 11:19:[address] [facility] Z87.891 Personal history of nicotine dependence PERSONAL HISTORY OF NICOTINE DEPENDENCE Diagnosis 04/14/2021 11:19:[address] 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 Diagnosis 11:19:00 PM [facility] L50.9 Urticaria, unspecified URTICARIA, UNSPECIFIED Diagnosi s 04/14/2021 11:19:00 PM [facility] I48.19 Other persistent atrial fibrillation Oth er persistent atrial fibrillation Diagnosis 10/24/2020 12:52:37 PM EST [facility] [id number] Syncope Syncope Problem 05/06/2021 12:00:00 AM ED T MEDEDISON ([facility]) [id number] Pure hypercholesterolemia Pure hypercholesterolemia Pr oblem 12/20/2020 12:00:00 AM EST [facility] ([facility]) [id number] Essential hypertension Essential hypertension Problem 12/20/2020 12:00:00 AM EST [facility] ([facility]) 03137215 Pseudophakic - Both Eyes Pseudophakic - Both Eyes Prob [place] 07/10/2020 12:00:00 AM EDT [facility] (Rick [facility]oval [facility]) 34816015 Pseudophakic - Both Eyes Pseudophakic - Both Eyes Prob [place] 07/10/2020 12:00:00 AM EDT [facility] ([facility]) 88269771 Pseudophakic - Both Eyes Pseudophakic - Both Eyes Prob [place] 07/10/2020 12:00:00 AM EDT [facility] ([facility]) 26607579 Pseudophakic - Both Eyes Pseudophakic - Both Eyes Prob [place] 07/10/2020 12:00:00 AM EDT [facility] ([facility]) 07264093 Pseudophakic - Both Eyes Pseudophakic - Both Eyes Prob [place] 07/10/2020 12:00:00 AM EDT [facility] ([facility]) 89523818 Pseudophakic - Both Eyes Pseudophakic - Both Eyes Prob [place] 07/10/2020 12:00:00 AM EDT [facility] ([facility]) 21912777 Pseudophakic - Both Eyes Pseudophakic - Both Eyes Prob [place] 07/10/2020 12:00:00 AM EDT [facility] ([facility]) 59099993 Pseudophakic - Both Eyes Pseudophakic - Both Eyes Prob [place] 07/10/2020 12:00:00 AM EDT [facility] ([facility]) 18862301 Pseudophakic - Both Eyes Pseudophakic - Both Eyes Prob [place] 07/10/2020 12:00:00 AM EDT [facility] ([facility]) 366.14 Cataract Senile Posterior Subcapsular Po lar Cataract Senile Posterior Subcapsular Polar Problem 04/25/2020 12:00:00 AM EDT - 07/10/2020 12:00:00 AM EDT [facility] ([facility]) 366.14 Cataract Senile Posterior Subcapsular Po lar Cataract Senile Posterior Subcapsular Polar Problem 04/25/2020 12:00:00 AM EDT - 07/10/2020 12:00:00 AM EDT [facility] ([facility]) 366.14 Cataract Senile Posterior Subcapsular Po lar Cataract Senile Posterior Subcapsular Polar Problem 04/25/2020 12:00:00 AM EDT - 07/10/2020 12:00:00 AM EDT [facility] ([facility]) 366.14 Cataract Senile Posterior Subcapsular Po lar Cataract Senile Posterior Subcapsular Polar Problem 04/25/2020 12:00:00 AM EDT - 07/10/2020 12:00:00 AM EDT [facility] ([facility]) 366.14 Cataract Senile Posterior Subcapsular Po lar Cataract Senile Posterior Subcapsular Polar Problem 04/25/2020 12:00:00 AM EDT - 07/10/2020 12:00:00 AM EDT [facility] ([facility]) 366.14 Cataract Senile Posterior Subcapsular Po lar Cataract Senile Posterior Subcapsular Polar Problem 04/25/2020 12:00:00 AM EDT - 07/10/2020 12:00:00 AM EDT [facility] ([facility]) 366.14 Cataract Senile Posterior Subcapsular Po lar Cataract Senile Posterior Subcapsular Polar Problem 04/25/2020 12:00:00 AM EDT - 07/10/2020 12:00:00 AM EDT [facility] ([facility]) 366.14 Cataract Senile Posterior Subcapsular Po lar Cataract Senile Posterior Subcapsular Polar Problem 04/25/2020 12:00:00 AM EDT - 07/10/2020 12:00:00 AM EDT [facility] ([facility]) 366.14 Cataract Senile Posterior Subcapsular Po lar Cataract Senile Posterior Subcapsular Polar Problem 04/25/2020 12:00:00 AM EDT - 07/10/2020 12:00:00 AM EDT [facility] ([facility]) 366.15 Cataract Senile Cortical Bilateral Cataract Karen le Cortical Bilateral Problem 12/07/2018 12:00:00 AM EST - 07/10/2020 12:00:00 AM ED T [facility] ([facility]) 366.15 Cataract Senile Cortical Bilateral Cataract Karen le Cortical Bilateral Problem 12/07/2018 12:00:00 AM EST - 07/10/2020 12:00:00 AM ED T [facility] ([facility]) 366.15 Cataract Senile Cortical Bilateral Cataract Karen le Cortical Bilateral Problem 12/07/2018 12:00:00 AM EST - 07/10/2020 12:00:00 AM ED T [facility] ([facility]) 366.15 Cataract Senile Cortical Bilateral Cataract Karen le Cortical Bilateral Problem 12/07/2018 12:00:00 AM EST - 07/10/2020 12:00:00 AM ED T [facility] ([facility]) 366.15 Cataract Senile Cortical Bilateral Cataract Karen le Cortical Bilateral Problem 12/07/2018 12:00:00 AM EST - 07/10/2020 12:00:00 AM ED T [facility] ([facility]) 366.15 Cataract Senile Cortical Bilateral Cataract Karen le Cortical Bilateral Problem 12/07/2018 12:00:00 AM EST - 07/10/2020 12:00:00 AM ED T [facility] ([facility]) 366.15 Cataract Senile Cortical Bilateral Cataract Karen le Cortical Bilateral Problem 12/07/2018 12:00:00 AM EST - 07/10/2020 12:00:00 AM ED T [facility] ([facility]) 366.15 Cataract Senile Cortical Bilateral Cataract Karen le Cortical Bilateral Problem 12/07/2018 12:00:00 AM EST - 07/10/2020 12:00:00 AM ED T [facility] ([facility]) 366.15 Cataract Senile Cortical Bilateral Cataract Karen le Cortical Bilateral Problem 12/07/2018 12:00:00 AM EST - 07/10/2020 12:00:00 AM ED T [facility] ([facility]) 366.16 Cataract Senile Nuclear Cataract Senile Nuclear Proble m 04/13/2013 12:00:00 AM EDT - 07/10/2020 12:00:00 AM EDT [facility] ([facility]) 366.16 Cataract Senile Nuclear Cataract Senile Nuclear Proble m 04/13/2013 12:00:00 AM EDT - 07/10/2020 12:00:00 AM EDT [facility] ([facility]) 366.16 Cataract Senile Nuclear Cataract Senile Nuclear Proble m 04/13/2013 12:00:00 AM EDT - 07/10/2020 12:00:00 AM EDT [facility] ([facility]) 366.16 Cataract Senile Nuclear Cataract Senile Nuclear Proble m 04/13/2013 12:00:00 AM EDT - 07/10/2020 12:00:00 AM EDT [facility] ([facility]) 366.16 Cataract Senile Nuclear Cataract Senile Nuclear Proble m 04/13/2013 12:00:00 AM EDT - 07/10/2020 12:00:00 AM EDT [facility] ([facility]) 366.16 Cataract Senile Nuclear Cataract Senile Nuclear Proble 04/13/2013 12:00:00 AM EDT - 07/10/2020 12:00:00 AM EDT [facility] ([facility]) 366.16 Cataract Senile Nuclear Cataract Senile Nuclear Proble 04/13/2013 12:00:00 AM EDT - 07/10/2020 12:00:00 AM EDT [facility] ([facility]) 366.16 Cataract Senile Nuclear Cataract Senile Nuclear Proble 04/13/2013 12:00:00 AM EDT - 07/10/2020 12:00:00 AM EDT [facility] ([facility]) 366.16 Cataract Senile Nuclear Cataract Senile Nuclear Proble 04/13/2013 12:00:00 AM EDT - 07/10/2020 12:00:00 AM EDT [facility] ([facility]) Surgeries/Procedures Procedure Description Date Indications Data Source(s) ECG ROUTINE ECG W/LEAST 12 LDS W/I&R <td>POCT AMB EKG</td><td>Routine</td><td>08/21/2021 11:05 AM EDT</td><td> Syncope and collapse</td><td> </td> 08/21/2021 11:05:00 AM EDT Syncope and collapse [facility] Syncope and collapse BLOOD COUNT COMPLETE AUTO&AUTO DIFRNTL WBC COUNT <td>C BC AND DIFFERENTIAL</td><td>Routine</td><td>07/25/2021</td><td></td><td> </td> 07/25/2021 12:00:00 AM EDT [facility] THYROID STIMULATING HORMONE TSH <td>TSH</td><td>Routine</td><td>07/25/2021</td><td></td><td> </td> 07/25/2021 12:00:00 AM EDT [facility] HEMOGLOBIN GLYCOSYLATED A1C <td>HEMOGLOBIN A1C</td><td>Routine</td><td>07/25/2021</td><td></td><td> </td> 07/25/2021 12:00:00 AM EDT [facility] HEPATIC FUNCTION PANEL <td>HEPATIC FUNCTION PANEL</td><td>Routine</td><td>07/25/2021</td><td></td><td> </td> 07/25/2021 12:00:00 AM EDT [facility] LIPID PANEL <td>LIPID PANEL</td><td>Rout ine</td><td>07/25/2021</td><td></td><td> </td> 07/25/2021 12:00:00 AM EDT [facility] BASIC METABOLIC PANEL CALCIUM TOTAL <td>BASIC METABOLI C PANEL</td><td>Routine</td><td>07/25/2021</td><td></td><td> </td> 07/25/2021 12:00:00 AM EDT [facility] ECG ROUTINE ECG W/LEAST 12 LDS W/I&R <td>POCT AMB EKG</td><td>Routine</td><td>06/18/2021 1:23 PM EDT</td><td> Paroxysmal atrial fibrillation</td><td> </td> 06/18/2021 01:23:00 PM EDT Paroxysmal atrial fibrillation [facility] Paroxysmal atrial fibrillation OFFICE OUTPATIENT VISIT 25 MINUTES 06/17/2021 12:00:00 AM EDT [facility] ([facility] ) EEG Complete STD Phys/QHP>36 HR<60 HR W/O Video 2020 12:00:00 AM EDT [facility] ([facility] ) EEG Complete STD Phys/QHP>60 HR<84 HR W/O Video 2020 12:00:00 AM EDT [facility] ([facility] ) TSTG ANS FUNCJ CARDIOVAGAL INNERVAJ PARASYMP 12:00:00 AM EDT [facility] ([facility] ) TESTING AUTONOMIC NERVOUS SYSTEM FUNCTION 06/07/2021 1 2:00:00 AM EDT [facility] ([facility] ) OFFICE OUTPATIENT NEW 45 MINUTES 05/06/2021 12:00:00 A M EDT [facility] ([facility] ) Intermediate Eye Exam Established Patient Intermediate Eye Exam Established Patient 05/02/2021 12:00:00 AM EDT [facility] (Ryan [facility]oval [facility]) BLOOD COUNT COMPLETE AUTO&AUTO DIFRNTL WBC COUNT <td>C BC AND DIFFERENTIAL</td><td>Routine</td><td>02/15/2021</td><td></td><td> </td> 02/15/2021 12:00:00 AM EDT [facility] BASIC METABOLIC PANEL CALCIUM TOTAL <td>BASIC METABOLI C PANEL</td><td>Routine</td><td>02/15/2021</td><td></td><td> </td> 02/15/2021 12:00:00 AM EDT [facility] BASIC METABOLIC PANEL CALCIUM TOTAL <td>BASIC METABOLI C PANEL</td><td>Routine</td><td>02/14/2021</td><td></td><td> </td> 02/14/2021 12:00:00 AM EDT [facility] TROPONIN QUANTITATIVE <td>TROPONIN I</td><td>Routine</td><td>02/13/2021</td><td></td><td> </td> 02/13/2021 12:00:00 AM EDT [facility] THYROID STIMULATING HORMONE TSH <td>TSH</td><td>Routine</td><td>02/13/2021</td><td></td><td> </td> 02/13/2021 12:00:00 AM EDT [facility] HEPATIC FUNCTION PANEL <td>HEPATIC FUNCTION PANEL</td><td>Routine</td><td>02/13/2021</td><td></td><td> </td> 02/13/2021 12:00:00 AM T [facility] BASIC METABOLIC PANEL CALCIUM TOTAL <td>BASIC METABOLI C PANEL</td><td>Routine</td><td>02/13/2021</td><td></td><td> </td> 02/13/2021 12:00:00 AM [facility] Needle electromyography, each extremity, with related paraspinal areas, when performed, done with nerve conduction, amplitude and latency/velocity study; complete, five or more muscles studied, innervated by three or more nerves or four or more spinal levels (list separately in addition to the code for primary procedure). 12/20/2020 12:00:00 AM EST MEDEN T ([facility] ) Nerve Conduction 11-12 Studies 12/20/2020 12:00:00 AM EST [facility] ([facility]) ECG ROUTINE ECG W/LEAST 12 LDS W/I&R <td>POCT AMB EKG</td><td>Routine</td><td>10/24/2020 1:59 PM EST</td><td> Paroxysmal atrial fibrillation</td><td> </td> 10/24/2020 06:59:00 PM EST Paroxysmal atrial fibrillation [facility] Paroxysmal atrial fibrillation RADEX SPINE CRV COMPL W/OBLQ&FLEX&/XTN STDS 09/10/2020 12:00:00 AM EDT [facility] ([facility]) RADEX SHOULDER COMPLETE MINIMUM 2 VIEWS 09/10/2020 12: 00:00 AM EDT [facility] ([facility]) Immunization: Flublok Quadrivalent (18 years & older) 0.5mL IM (Influenza) 08/21/2020 12:00:00 AM EDT eCW1 ([facility]) Surgical / procedural history Surgical / procedural history 07/26/2020 12:00:00 AM EDT [facility] (Rick [facility]oval [facility]) Extracapsular extraction of lens (procedure) History o f extracapsular cataract extraction PCIOL OS 06/11/[address] Stout ~PCIOL OD 06/25/[address] Stout 07/26/2020 12:00:00 AM EDT ALEJA (Ryan Sandoval MD [facility]) Extracapsular extraction of lens (procedure) History o f extracapsular cataract extraction PCIOL OS by Dr. Stout 06/11/2020 ~PCIOL OD by Dr. Stout 06/25/2020 07/10/2020 12:00:00 AM EDT ALEJA (Ryan Sandoval MD [facility]) No surgical / procedural history No surgical / procedural hi story 07/10/2020 12:00:00 AM EDT ALEJA (Rick Sandoval MD [facility]) Results ID Date Data Source LIPID PANEL (CARDIAC RISK) 07/25/2021 12:00:00 AM EDT eCW1 ( [facility]) Name Value Range Interpretation Code Description Data Leigh rce(s) Supporting Document(s) Triglyceride [Mass/volume] in Serum or Plasma by calculation 182 <150 TRIGLYCERIDES LEVEL eCW1 ([facility], [facility]) Cholesterol [Moles/volume] in Serum or Plasma 93 <200 CHOLESTEROL LEVEL eCW1 ([facility]) Cholesterol in HDL [Moles/volume] in Serum or Plasma 37 >40 HDL CHOLESTEROL eCW1 ([facility]) 56 NON-HDL-C eCW1 ([facility]) Cholesterol in LDL [Mass/volume] in Serum or Plasma by calculation 20 <100 LDL CHOLESTEROL eCW1 ([facility]) 2.513 <5 CHOLESTEROL RISK RATIO eCW1 ([facility]) ID Date Data Source [id number] 07/25/2021 12:00:00 AM EDT eCW1 ([facility]) Name Value Range Interpretation Code Description Data Leigh rce(s) Supporting Document(s) Hemoglobin A1c/Hemoglobin.total in Blood 6.3 HEMOGLOBIN A1c eCW1 ([facility]) ID Date Data Source FREE T4 & TSH PANEL 07/25/2021 12:00:00 AM EDT eCW1 ([facility]) Name Value Range Interpretation Code Description Data Leigh rce(s) Supporting Document(s) 2.470 0.358-3.740 THYROID STIMULATING HORM ONE eCW1 ([facility]) 1.03 0.76-1.46 FREE T4 eCW1 ([facility]) ID Date Data Source Comprehensive Metabolic Profile (CMP) 07/25/2021 12:00:00 AM EDT eCW1 ([facility]) Name Value Range Interpretation Code Description Data Leigh rce(s) Supporting Document(s) 1.42 0.70-1.30 CREATININE FOR GFR eCW1 ([facility]) 125 70-100 GLUCOSE, FASTING eCW1 ([facility]) 29 7-18 BLOOD UREA NITROGEN eCW1 ([facility]) 50.0 >35 GLOMERULAR FILTRATION RATE eCW 1 ([facility]ly [facility]) 4.0 3.5-5.1 POTASSIUM SERUM eCW1 ([facility]) 142 136-145 SODIUM LEVEL eCW1 (Formerly [facility]) 109 98-107 CHLORIDE LEVEL eCW1 ([facility]) 26 21-32 CARBON DIOXIDE LEVEL eCW1 ([facility]) 8.8 8.8-10.2 CALCIUM LEVEL eCW1 ([facility]) 27 7-37 AST/SGOT eCW1 ([facility]) 106 45-117 ALKALINE PHOSPHATASE eCW1 ([facility]) 31 12-78 ALT/SGPT eCW1 ([facility]) 6.6 6.4-8.2 TOTAL PROTEIN eCW1 ([facility]) 0.5 0.2-1.0 BILIRUBIN,TOTAL eCW1 ([facility]) 1.1 ALBUMIN/GLOBULIN RATIO eCW1 [facility]) 3.4 3.2-5.2 ALBUMIN eCW1 ([facility]) ID Date Data Source CBC - Complete Blood Count 07/25/2021 12:00:00 AM EDT eCW1 ( [facility]) Name Value Range Interpretation Code Description Data Leigh rce(s) Supporting Document(s) 5.8 4.0-10.0 WHITE BLOOD COUNT eCW1 ([facility]) 9.8 13.5-17.5 HEMOGLOBIN eCW1 ([facility]) 3.49 4.30-6.10 RED BLOOD COUNT eCW1 ([facility]) 32.0 42.0-52.0 HEMATOCRIT eCW1 ([facility]) 28.1 27.0-33.0 MEAN CORPUSCULAR HEMOGLOB IN eCW1 ([facility]) 91.7 80.0-96.0 MEAN CORPUSCULAR VOLUME e CW1 ([facility]) 127 150-450 PLATELET COUNT, AUTOMATED eCW1 ([facility]) 15.2 11.5-14.5 RED CELL DISTRIBUTION WID TH eCW1 ([facility]) 30.6 32.0-36.5 MEAN CORPUSCULAR HGB CONC eCW1 ([facility]) ID Date Data Source [id number] 04/15/2021 12:51:00 AM EDT [facility] Patient: SHAHEED ULRICH Observation Re [facility]/Mid Levels [facility].VisitID: [id number] [place] [address] [phone], MRegistration Date/Time: 04/14/2021 22:49 Weight:90.7 kg (S). [...] rce(s) Supporting Document(s) ID Date Data Source [id number] 02/13/2021 02:25:00 PM EDT [facility] Name Value Range Interpretation Code Description Data [facility] rce(s) Supporting Document(s) SARS-CoV-2 (COVID 19) NEGATIVE - SARS-CoV-2 (COVID19) [facility] This lab was ordered by [facility] a nd reported by [facility]. ID Date Data Source [id number] 02/01/2021 10:50:00 AM EDT [facility] Name Value Range Interpretation Code Description Data Leigh rce(s) Supporting Document(s) Glomerular Filtration Rate 41.2 MED ENT ([facility]) <content>Units are mL/min/1.73 m2</content>
<content></content>
<content>Chronic Kidney Disease Staging per NKF:</content>
<content></content>
<content>Stage I & II GFR >=60 Normal to Mildly Decreased</content>
<content>Stage III GFR 30-59 Moderately Decreased</content>
<content>Stage IV GFR 15-29 Severely Decreased</content>
<content>Stage V GFR <15 Very Little GFR Left</content>
<content>ESRD GFR <15 on GLASS FITTER</content>
<content></content> Creatinine For GFR 1.68 mg/dL 0.70-1.30 MEDENT ([facility]) ID Date Data Source [id number] 02/01/2021 10:50:00 AM EDT [facility] ([facility]) Name Value Range Interpretation Code Description Data Leigh rce(s) Supporting Document(s) Urea nitrogen [Mass/volume] in Serum or Plasma 33 mg/dL 7-18 MED[facility] ([facility]) ID Date Data Source [id number] 09/26/2020 12:00:00 AM EST [facility]IN[facility] Patient Name: SHAHEED ULRICH[address] [place] [address] Date of : 1930te 2 Date of Exam: 09/26/2020CALLI Donahue [id number]#: Fax: [phone] EXAM: MRI SHOULDER LEFT W/O CONTRASTCLINICAL INFORMATION: Pain and decreased nolno-gn-oebvtv x 2 weeks.There are no prior left [...] thesubscapularis; and particularly the infraspinatus tendons. Patchy M0tudiqboezoi is seen in the infraspinatus musculotendinous junction and inthe supraspinatus muscle belly. There is coracohumeral and coracoacromialligamentous thickening. Linear hypersignal changes are seen in thesuperior labrum which appear to be ujvftfyh-qp-sxgsaezyt. There is glenoidand humeral head chondromalacia. The [...] Other findings as described above.Accredited by the [employer] in MR.SANJIV Garcia/Shirley you for referring SHAHEED ULRICH to our office.Electronically Signed - NOAM SHEEHAN DO 09/26/20 14:32 Name Value Range Interpretation Code Description Data Leigh rce(s) Supporting Document(s) ID Date Data Source [id number] 09/26/2020 12:00:00 AM [facility] Saleem TRINH Patient Name: SHA[facility]ED [facility]LRICH[facility] Date of : 1930te 2 Date of Exam: 09/26/2020CALLI Donahue [id number]#: Fax: [phone] EXAM: MRI CERVICAL SPINE WITHOUT&WITH [...] Authenticated by: Lamonte Taylor MD 09/26/2020 3:00 [facility] [place] [place]VradV/jmcThank you for referring SHAHEED ULRICH to our office.Electronically Signed - [facility] 09/26/20 15:30 Name Value Range Interpretation Code Description Data Leigh rce(s) Supporting Document(s) Procedure Social History Code Duration Value Status Description Data Source(s ) Alcohol intake 08/21/2021 12:00:00 AM EDT Ex-drinker (finding) comp leted Ex- drinker (finding) [facility] Smoking 07/25/2021 12:00:00 AM EDT Former Smoker completed Former Smoker eCW1 ([facility]) Smoking 07/25/2021 12:00:00 AM EDT Former Smoker completed Former Smoker eCW1 ([facility]) Smoking 07/02/2021 09:32:09 PM EDT Ex-smoker (finding) complet ed Ex-smoker (finding) ALEJA ([facility]oval [facility]) Smoking 07/02/2021 09:31:18 PM EDT Ex-smoker (finding) complet ed Ex-smoker (finding) ALEJA ([facility]oval [facility]) Smoking 07/02/2021 09:28:12 PM EDT Ex-smoker (finding) complet ed Ex-smoker (finding) ALEJA ([facility]oval [facility]) Smoking 07/02/2021 09:27:10 PM EDT Ex-smoker (finding) complet ed Ex-smoker (finding) ALEJA ([facility]oval [facility]) Smoking 07/02/2021 09:25:20 PM EDT Ex-smoker (finding) complet ed Ex-smoker (finding) ALEJA ([facility]oval [facility]) Alcohol intake 06/18/2021 12:00:00 AM EDT Ex-drinker (finding) comp leted Ex- drinker (finding) [facility] Smoking 04/03/2021 12:00:00 AM EDT Former Smoker completed Former Smoker eCW1 ([facility]) Smoking 04/03/2021 12:00:00 AM EDT Former Smoker completed Former Smoker eCW1 ([facility]) Smoking 02/21/2021 12:00:00 AM EDT Former Smoker completed Former Smoker eCW1 ([facility]) Alcohol intake 10/24/2020 12:00:00 AM EST Yes completed [facility] Smoking 10/24/2020 12:00:00 AM EST Former smoker completed Former smoker [facility] Smoking 10/03/2020 12:00:00 AM EST Former Smoker completed Former Smoker eCW1 ([facility]) Smoking 10/03/2020 12:00:00 AM EST Former Smoker completed Former Smoker eCW1 ([facility]) Smoking 10/03/2020 12:00:00 AM EST Former Smoker completed Former Smoker eCW1 ([facility]) Smoking 10/03/2020 12:00:00 AM EST Former Smoker completed Former Smoker eCW1 ([facility]) Smoking 08/21/2020 12:00:00 AM EDT Former Smoker completed Former Smoker eCW1 ([facility]) Smoking 08/21/2020 12:00:00 AM EDT Former Smoker completed Former Smoker eCW1 ([facility]) Smoking 08/21/2020 12:00:00 AM EDT Former Smoker completed Former Smoker eCW1 ([facility]) Smoking 07/26/2020 12:38:46 PM EDT Ex-smoker (finding) complet ed Ex-smoker (finding) ALEJA (Rick [facility]oval [facility]) Vital Signs ID Date Data Source UNK Name Value Range Interpretation Code Description Data Source(s) Systolic blood pressure 108 mm[Hg] 108 mm[Hg] [facility] Diastolic blood pressure 62 mm[Hg] 62 mm[Hg] [facility] Heart rate 82 /min 82 /min [facility] Body height 180.3 cm 180.3 cm [facility] Body weight 90.266 kg 90.266 kg [facility] Body mass index (BMI) [Ratio] 27.75 kg/m2 27.75 kg/m2 [facility] Oxygen saturation in Arterial blood by Pulse oximetry 96 % 96 % [facility] Heart rate 74 /min 74 /min [facility] Systolic blood pressure 110 mm[Hg] 110 mm[Hg] [facility] Diastolic blood pressure 70 mm[Hg] 70 mm[Hg] [facility] Body mass index (BMI) [Ratio] 27.48 kg/m2 27.48 kg/m2 [facility] Body weight 89.359 kg 89.359 kg [facility] Oxygen saturation in Arterial blood by Pulse oximetry 94 % 94 % [facility] Body weight 196 [lb_av] 196 [lb_av] eCW1 ([facility]) Body height 71 [in_i] 71 [in_i] eCW1 ([facility]) Body mass index (BMI) [Ratio] 27.33 kg/m2 27.33 kg/m2 W1 ([facility]) Heart rate 81 /min 81 /min eCW1 ([facility]) Respiratory rate 18 /min 18 /min eCW1 ([facility]) Body temperature 97.0 [degF] 97.0 [degF] eCW1 ( [facility]) Systolic blood pressure 132 mm[Hg] 132 mm[Hg] e CW1 ([facility]) Diastolic blood pressure 70 mm[Hg] 70 mm[Hg] eCW1 ([facility]) Systolic blood pressure 88 mm[Hg] 88 mm[Hg] [facility] Diastolic blood pressure 50 mm[Hg] 50 mm[Hg] [facility] Heart rate 76 /min 76 /min [facility] Body height 180.3 cm 180.3 cm [facility] Body weight 88.905 kg 88.905 kg [facility] Body mass index (BMI) [Ratio] 27.34 kg/m2 27.34 kg/m2 [facility] Oxygen saturation in Arterial blood by Pulse oximetry 96 % 96 % [facility] Systolic blood pressure 130 mm[Hg] 130 mm[Hg] M EDENT ([facility]) Diastolic blood pressure 80 mm[Hg] 80 mm[Hg] MEDENT ([facility]) Heart rate 80 /min 80 /min MED[facility] ([facility]) Respiratory rate 20 /min 20 /min MED[facility] ( [facility]) Body weight 201 [lb_av] 201 [lb_av] eCW1 ([facility]) Body height 71 [in_i] 71 [in_i] eCW1 ([facility]) Body mass index (BMI) [Ratio] 28.03 kg/m2 28.03 kg/m2 eCW1 ([facility]) Heart rate 82 /min 82 /min eCW1 ([facility]) Respiratory rate 18 /min 18 /min eCW1 ([facility]) Body temperature 97.6 [degF] 97.6 [degF] eCW1 ( [facility]) Systolic blood pressure 126 mm[Hg] 126 mm[Hg] e CW1 ([facility]) Diastolic blood pressure 76 mm[Hg] 76 mm[Hg] eCW1 ([facility]) Body weight 199 [lb_av] 199 [lb_av] eCW1 ([facility]) Body height 71 [in_i] 71 [in_i] eCW1 ([facility]) Body mass index (BMI) [Ratio] 27.75 kg/m2 27.75 kg/m2 W1 ([facility]) Heart rate 86 /min 86 /min eCW1 ([facility]) Respiratory rate 18 /min 18 /min eCW1 ([facility]) Body temperature 98.5 [degF] 98.5 [degF] eCW1 ( [facility]) Systolic blood pressure 118 mm[Hg] 118 mm[Hg] e CW1 ([facility]) Diastolic blood pressure 72 mm[Hg] 72 mm[Hg] eCW1 ([facility]) Body temperature 97.3 [degF] 97.3 [degF] MEDENT ([facility]) Body height 71 [in_i] 71 [in_i] MEDENT ([facility]) 5'11" Body weight 185.00 [lb_av] 185.00 [lb_av] MEDEN T ([facility]) Body mass index (BMI) [Ratio] 25.8 kg/m2 25.8 k g/m2 MEDENT ([facility]) Body mass index (BMI) [Ratio] 25.8 kg/m2 25.8 k g/m2 MEDENT ([facility]) Body temperature 97.7 [degF] 97.7 [degF] MEDENT ([facility]) Body height 71 [in_i] 71 [in_i] MEDENT ([facility]) 5'11" Body weight 185.00 [lb_av] 185.00 [lb_av] MEDEN T ([facility]) Heart rate 60 /min 60 /min [facility] Systolic blood pressure 108 mm[Hg] 108 mm[Hg] [facility] Diastolic blood pressure 70 mm[Hg] 70 mm[Hg] [facility] Body height 180.3 cm 180.3 cm [facility] Body weight 91.627 kg 91.627 kg [facility] Body mass index (BMI) [Ratio] 28.17 kg/m2 28.17 kg/m2 [facility] Oxygen saturation in Arterial blood by Pulse oximetry 99 % 99 % [facility] Body weight [lb_av] W1 ([facility]) Body height 71 [in_i] 71 [in_i] W1 ([facility]) Body mass index (BMI) [Ratio] 25.80 kg/m2 25.80 kg/m2 W1 ([facility]) Systolic blood pressure 120 mm[Hg] 120 mm[Hg] e CW1 ([facility]) Diastolic blood pressure 80 mm[Hg] 80 mm[Hg] eCW1 ([facility]) Body weight 200 [lb_av] 200 [lb_av] W1 ([facility]) Body mass index (BMI) [Ratio] 27.89 kg/m2 27.89 kg/m2 [facility] ([facility]) Body height 71 [in_i] 71 [in_i] eCW1 ([facility]) Respiratory rate 20 /min 20 /min eCW1 ([facility]) Body temperature 98.0 [degF] 98.0 [degF] eCW1 ( [facility]) Systolic blood pressure 138 mm[Hg] 138 mm[Hg] e CW1 ([facility]) Diastolic blood pressure 78 mm[Hg] 78 mm[Hg] eCW1 ([facility]) Heart rate 83 /min 83 /min eCW1 ([facility]) Patient Treatment Plan of Care Planned Activity Planned Date Details Description Data Source (s) midodrine hydrochloride 2.5 MG Oral Tablet 08/21/2021 12:00:00 AM E DT [facility] tramadol hydrochloride 50 MG Oral Tablet 01/22/2021 12:00:00 AM EST eCW1 ([facility]) loteprednol etabonate 5 MG/ML / Tobramyc in 3 MG/ML Ophthalmic Suspension [Zylet] 07/10/2020 12:00:[address] (Rick Sandoval MD [facility]) Inveltys 1% Ophthalmic Suspension 06/06/2020 12:00:00 AM EDT ALEJA (Rick Sandoval MD [facility]) besifloxacin 6 MG/ML Ophthalmic Suspension [Besivance] 06/06/2020 12:00:00 AM EDT ALEJA (Rick Sandoval MD [facility]) BromSite 0.075% Ophthalmic Solution 06/06/2020 12:00:00 AM EDT ALEJA (Rick Sandoval MD [facility]) Omeprazole 20 MG Delayed Release Oral Tablet 08/31/2014 12:00:00 AM EDT [facility] Multiple Vitamin (MULTIVITAMIN) capsule 08/31/2014 12:00:00 AM EDT [facility] Ascorbic Acid 500 MG Oral Tablet 08/31/2014 12:00:00 AM EDT [facility] ipratropium (ATROVENT) 0.03 % nasal spray 08/31/2014 12:00:00 AM ED T [facility] Chlorthalidone 25 MG Oral Tablet [facility] Gabapentin 10 % CREA [facility] Lisinopril 1 MG/ML SOLN [facility] potassium chloride in dextrose solution [facility] cetirizine hydrochloride 10 MG Oral Capsule [Zyrtec] [facility] apixaban 2.5 MG Oral Tablet [facility] Multiple Vitamins-Minerals (PRESERVISION AREDS 2 PO) [facility] Ipratropium [place] 0.2 MG/ML Inhalant Solution [facility] Hydrochlorothiazide 25 MG / Triamterene 37.5 MG Oral Tablet [facility] apixaban 2.5 MG Oral Tablet [facility] Lisinopril 40 MG Oral Tablet [facility] Chlorthalidone 25 MG Oral Tablet [facility] Tamsulosin hydrochloride 0.4 MG Oral Capsule [facility]
[2021-08-28 19:11] LABS: FOLATE > 24.0 NG/ML (>5.4)
[2021-08-28] MEDS ORDERED: APIXABAN 2.5 MG TAB (ELIQUIS) PO SCH (21:00)
[2021-08-28 21:41] LABS: APPEARANCE, URINE CLEAR (CLEAR); BACTERIA, URINE AUTO NEGATIVE (NEGATIVE); BILIRUBIN, URINE AUTO NEGATIVE (NEGATIVE); BLOOD, URINE BLOOD NEGATIVE (NEGATIVE); COLOR, URINE YELLOW (YELLOW); GLUCOSE, URINE (UA) AUTO NEGATIVE (NEGATIVE); KETONE, URINE AUTO NEGATIVE (NEGATIVE); LEUKOCYTE ESTERASE, URINE AUTO NEGATIVE (NEGATIVE); MUCUS, URINE SMALL (NEGATIVE); NITRITE, URINE AUTO NEGATIVE (NEGATIVE); PROTEIN, URINE AUTO NEGATIVE (NEGATIVE); RBC, URINE AUTO 0 /HPF (0-3); SPECIFIC GRAVITY URINE AUTO 1.009 (1.002-1.035); SQUAMOUS EPITHELIAL CELL UR AU 0 /HPF (0-6); UROBILINOGEN, URINE AUTO 0.2 mg/dL (0.0-2.0); WBC, URINE AUTO 0 /HPF (0-3)
[2021-08-28] MEDS ORDERED: MIRALAX *UNIT DOSE* 17GM PACKET PO PRN (21:55)
[2021-08-28] MEDS ORDERED: GLUCOSE 4GM CHEW TABLET PO PRN (22:20)
[2021-08-28] MEDS ORDERED: GLUCAGON INJ 1MG VIAL SC PRN (22:20)
[2021-08-28] MEDS ORDERED: DEXTROSE 50% 50 ML SYRINGE IV PRN (22:20)
[2021-08-28] MEDS ORDERED: IRON SUCROSE 100MG 5ML VIAL (J1756 PER 1MG) IV SCH (22:20)
[2021-08-28] MEDS ORDERED: HEPARIN SOD (PORCINE) 5000UNITS/ML 1ML VIAL/SYRINGE IV PRN (22:20)
[2021-08-28] MEDS ORDERED: HEPARIN DRIP 25,000 UNITS in IV 1 EA IV SCH (22:20)
[2021-08-28] MEDS ORDERED: IRON SUCROSE 100 MG in NS 100 ML OVER 1 HR IV ONE (23:00)
[2021-08-28 23:17] VITALS: BP 165/87
[2021-08-29] VITALS (21 sets, daily range): BP systolic 84–179; BP diastolic 62–95
[2021-08-29] MEDS: MONTELUKAST 10 MG TAB PO SCH ×2 (00:06→17:10)
[2021-08-29] MEDS: TAMSULOSIN 0.4 MG CAP PO SCH ×2 (00:07→21:11)
[2021-08-29] MEDS: POTASSIUM CHLORIDE 10MEQ SR TABLET PO SCH ×3 (00:08→21:12)
[2021-08-29] MEDS: GABAPENTIN 300 MG CAP PO SCH ×2 (00:09→21:12)
[2021-08-29] MEDS: ROSUVASTATIN 10 MG TAB (CRESTOR) PO SCH ×2 (00:11→17:10)
[2021-08-29 06:30] LABS: HEMATOCRIT 24.7 % (42.0-52.0); HEMOGLOBIN 7.5 g/dl (13.5-17.5); MEAN CORPUSCULAR HEMOGLOBIN 26.2 pg (27.0-33.0); MEAN CORPUSCULAR HGB CONC 30.4 g/dl (32.0-36.5); MEAN CORPUSCULAR VOLUME 86.4 fl (80.0-96.0); PLATELET COUNT, AUTOMATED 117 10^3/uL (150-450); RED BLOOD COUNT 2.86 10^6/uL (4.30-6.10); WHITE BLOOD COUNT 5.1 10^3/uL (4.0-10.0)
[2021-08-29 06:50] LABS: CALCIUM LEVEL 8.4 MG/DL (8.8-10.2); CREATININE FOR GFR 1.37 MG/DL (0.70-1.30); GLOMERULAR FILTRATION RATE 52.1 (>35); MAGNESIUM LEVEL 2.1 MG/DL (1.8-2.4); POTASSIUM SERUM 4.2 MEQ/L (3.5-5.1)
[2021-08-29] MEDS ORDERED: HumaLOG INSULIN (NovoLOG) PER UNIT SC SCH ×2 (07:30→21:00)
--- NOTE | 2021-08-29 07:39 | ECGEPIP ---
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
[2021-08-29] MEDS ORDERED: metFORMIN XR 500MG TAB *GLUCOPHAGE XR PO SCH (09:00)
[2021-08-29] MEDS: IRON SUCROSE 100 MG in NS 100 ML IV SCH (09:00)
[2021-08-29] MEDS ORDERED: OMEPRAZOLE 20 MG CAP PO SCH (09:00)
[2021-08-29] MEDS: MULTIVITAMINS/MINERALS THERAP 1 TAB PO SCH (09:00)
[2021-08-29] MEDS ORDERED: APIXABAN 2.5 MG TAB (ELIQUIS) PO SCH (09:00)
[2021-08-29 11:35] LABS: VITAMIN B12 LEVEL 521 PG/ML (247-911)
--- NOTE | 2021-08-29 15:37 | IPN ---
PROGRESS NOTE DATE: 08/29/2021 SUBJECTIVE: Patient still complains of generalized weakness. Had dizziness yesterday at home. He denies any bright red blood per rectum, melena, black tarry stools, hematemesis or coffee-ground emesis. Denies any shortness of breath, chest pain, pressure, tightness, lightheadedness, fever, chills or cough this morning. PHYSICAL EXAMINATION: VITAL SIGNS: Temperature 97.5, pulse 66, respiratory rate 18, blood pressure 135/72, 96 % on 2 liters nasal cannula. GENERAL: Pale. No cyanosis. Awake, alert, oriented, appropriately answering questions. No use of respiratory accessory muscles. HEENT: Pale. Moist mucous membranes. No jugular venous distention (JVD) or thyromegaly. LUNGS: Clear to auscultation. No wheezing or rales. HEART: S1, S2. Irregularly irregular. ABDOMEN: Soft, nontender, nondistended. EXTREMITIES: No cyanosis, clubbing. Trace edema bilaterally. LABORATORY DATA/IMAGING STUDIES: Have been reviewed. ASSESSMENT: This is an 89-year-old male with history of chronic atrial fibrillation on Eliquis, dyslipidemia, obstructive sleep apnea (ALISA) on continuous positive airway pressure (CPAP), chronic kidney disease (CKD) stage III and diabetes, presents due to symptomatic anemia with presyncope due to severe anemia with hemoglobin of 7.5. IMPRESSION: 1. Symptomatic anemia. 2. Suspected gastrointestinal (GI) bleed due to chronic Eliquis use. 3. History of chronic atrial fibrillation, rate controlled. 4. Hypertension. 5. Obstructive sleep apnea on continuous positive airway pressure (CPAP). 6. Chronic kidney disease stage III at baseline. 7. Thrombocytopenia. 8. Abnormal cardiac markers. PLAN: Patient will be transfused 3 units of blood today due to symptomatic anemia with complaints of dizziness and generalized weakness. I have discussed this case with sugar laboratory assistant combination welder today. Since the patient does not have Hemoccult positive stool, we sill wait until this is available and will monitor the patient's hemoglobin and hematocrit. Patient will be given Venofer and continued on Prilosec and Carafate for now. His anticoagulant, Eliquis, as well as antiplatelet, aspirin, will be held until patient's hemoglobin is back to baseline and no signs of bleeding.
[2021-08-29] MEDS ORDERED: FUROSEMIDE 20MG/2ML VIAL (J1940) IV ONE (23:20)
[2021-08-29 23:48] LABS: HEMATOCRIT 33.4 % (42.0-52.0)
[2021-08-29 23:55] LABS: HEMOGLOBIN 10.9 g/dl (13.5-17.5)
[2021-08-30 05:26] LABS: BASO % 0.4 % (0.0-1.0); EOS # 0.2 10^3/uL (0.0-0.5); EOS % 2.6 % (0.0-3.0); HEMATOCRIT 33.6 % (42.0-52.0); HEMOGLOBIN 10.9 g/dl (13.5-17.5); LYMPH # 1.2 10^3/uL (1.5-5.0); MEAN CORPUSCULAR HGB CONC 32.4 g/dl (32.0-36.5); MEAN CORPUSCULAR VOLUME 86.4 fl (80.0-96.0); MONO # 0.8 10^3/uL (0.0-0.8); MONO % 11.4 % (2.0-8.0); NEUTROPHILS # 4.8 10^3/uL (1.5-8.5); NEUTROPHILS % 68.3 % (36.0-66.0); PLATELET COUNT, AUTOMATED 120 10^3/uL (150-450); RED BLOOD COUNT 3.89 10^6/uL (4.30-6.10)
[2021-08-30 05:47] LABS: CALCIUM LEVEL 8.2 MG/DL (8.8-10.2); CREATININE FOR GFR 1.39 MG/DL (0.70-1.30); GLOMERULAR FILTRATION RATE 51.2 (>35); POTASSIUM SERUM 3.8 MEQ/L (3.5-5.1)
[2021-08-30 06:00] VITALS: BP 166/84
[2021-08-30] MEDS ORDERED: SUCR1TA PO (07:43)
[2021-08-30] MEDS ORDERED: PANT40TA29 PO (07:43)
[2021-08-30] MEDS ORDERED: FERR325T3 PO (07:44)
[2021-08-30] MEDS ORDERED: VITA500C24 PO (07:44)
[2021-08-30] MEDS ORDERED: SENO8.6T5 PO (07:45)
[2021-08-30] MEDS: MULTIVITAMINS/MINERALS THERAP 1 TAB PO SCH (08:21)
[2021-08-30] MEDS: SUCRALFATE 1 GM TAB PO SCH ×2 (08:21→12:00)
[2021-08-30] MEDS: IRON SUCROSE 100 MG in NS 100 ML IV SCH (08:21)
[2021-08-30] MEDS: POTASSIUM CHLORIDE 10MEQ SR TABLET PO SCH (08:22)
[2021-08-30] MEDS ORDERED: PANTOPRAZOLE 40MG TAB (PROTONIX) PO SCH (09:00)
--- NOTE | 2021-08-30 11:47 | IPNPDOC ---
Date Seen The patient was seen on 08/30/21. Progress Note SUBJECTIVE: denies brbpr, melena, coffee ground emesis. feels better no sob, cp, pressure or tightness. PHYSICAL EXAMINATION: VITAL SIGNS: see below GENERAL: lethargic but arousable. answers appropriately. HEENT: Pale. Moist mucous membranes. No jugular venous distention (JVD) or thyromegaly. LUNGS: Clear to auscultation. No wheezing or rales. HEART: S1, S2. Irregularly irregular. ABDOMEN: Soft, nontender, nondistended. EXTREMITIES: No cyanosis, clubbing. Trace edema bilaterally. LABORATORY DATA/IMAGING STUDIES: Have been reviewed. ASSESSMENT: This is an 89-year-old male with history of chronic atrial fibrillation on Eliquis, dyslipidemia, obstructive sleep apnea (ALISA) on continuous positive airway pressure (CPAP), chronic kidney disease (CKD) stage III and diabetes, presents due to symptomatic anemia with presyncope due to severe anemia with hemoglobin of 7.5. IMPRESSION: 1. Symptomatic anemia. 2. Suspected gastrointestinal (GI) bleed due to chronic Eliquis use. 3. History of chronic atrial fibrillation, rate controlled. 4. Hypertension. 5. Obstructive sleep apnea on continuous positive airway pressure (CPAP). 6. Chronic kidney disease stage III at baseline. 7. Thrombocytopenia. 8. Abnormal cardiac markers. PLAN: await pt recommendation. on ppi and carafate per gi recommendations. Per Dr. Schroeder, hold eliquis, and outpt stan Stout if no over gi bleed. s/p 3 u rbc transfusion w/o fluid overload. may dc home today pending physical therapy recommendation. VS, I&O, 24H, Fishbone Vital Signs/I&O Vital Signs Date Time Temp Pulse Resp B/P (MAP) Pulse Ox O2 Delivery O2 Flow Rate FiO2 08/30/21 08:41 2.0 08/30/21 06:00 97.5 63 14 166/84 (111) 96 Room Air I&O- Last 24 Hours up to 6 AM 08/30/21 05:59 Intake Total 2135 ml Output Total 1625 ml Balance 510 ml Laboratory Data 24H LABS Laboratory Tests 2 08/30/21 04:39: Immature Granulocyte % (Auto) 0.3, Neutrophils (%) (Auto) 68.3H, Lymphocytes (%) (Auto) 17.0L, Monocytes (%) (Auto) 11.4H, Eosinophils (%) (Auto) 2.6, Basophils (%) (Auto) 0.4, Neutrophils # (Auto) 4.8, Lymphocytes # (Auto) 1.2L, Monocytes # (Auto) 0.8, Eosinophils # (Auto) 0.2, Basophils # (Auto) 0.0, Nucleated Red Blood Cells % (auto) 0.0, Anion Gap 6L, Glomerular Filtration Rate 51.2, Calcium Level 8.2L CBC/BMP Laboratory Tests 08/29/21 23:40 08/30/21 04:39 BARBI WILDE MD Aug 30, 2021 11:47
[2021-09-03 02:08] LABS: Methylmalonic Acid 177 nmol/L (0-378)
== END 2021-08-30 14:04 | disposition home or self-care (01) ==
LOC: EDBD 13:40 → M ED 13:40 → M ED INP 13:41 → ENRESERVDT 21:36 → ENRESERVTM 21:36 → M MSPAV 23:17
PROVIDERS: ADMIT Internal Medicine; ATTEND General Practice
DX: R55 Syncope and collapse (principal); D50.9 Iron deficiency anemia, unspecified; I48.20 Chronic atrial fibrillation, unspecified; Z79.01 Long term (current) use of anticoagulants; I12.9 Hypertensive chronic kidney disease with stage 1 through stage 4 chronic kidney disease, or unspecified chronic kidney disease; N18.30 Chronic kidney disease, stage 3 unspecified; K21.9 Gastro-esophageal reflux disease without esophagitis; Z79.84 Long term (current) use of oral hypoglycemic drugs; K92.2 Gastrointestinal hemorrhage, unspecified; G47.33 Obstructive sleep apnea (adult) (pediatric); E11.9 Type 2 diabetes mellitus without complications; D69.6 Thrombocytopenia, unspecified; Z87.891 Personal history of nicotine dependence; N40.0 Benign prostatic hyperplasia without lower urinary tract symptoms; E78.5 Hyperlipidemia, unspecified; Z79.899 Other long term (current) drug therapy; Z88.2 Allergy status to sulfonamides; Z88.8 Allergy status to other drugs, medicaments and biological substances
CPT/HCPCS: 36415; 36430; 70450; 71045; 80048; 81001; 82550; 82553; 82607; 82728; 82746; 83550; 83735; 83921; 84443; 84484; 85014; 85018; 85025; 85027; 85046; 85610; 85730; 86850; 86900; 86901; 86920; 87631; 93005; 93041; 94760; 96365; 96366; 96375; 97116; 97161; 97530; 99285; G0378; J1756; J1940; P9016